=== PATIENT | male | born 1950 | race Caucasian/White ===

== ENCOUNTER 2017-08-11 19:24 | Emergency (ER) | payer OTHER ==
[~2017-08-11] VITALS: Ht 185.4 cm; Wt 115.5 kg
[~2017-08-11 19:24] MED LIST: NIAC500 PO
[2017-08-11 19:29] VITALS: BP 131/68; PULSE 80; RESP 20; TEMP 98.1; O2SAT 95
[2017-08-11] MEDS ORDERED: OSEL75 PO ×2 (20:10→20:20)
[2017-08-11] MEDS ORDERED: BENZ100 PO ×2 (20:10→20:20)
--- NOTE | 2017-08-11 20:11 | PD ---
HPI Chief Complaint: Cold / Flu Symptoms Time Seen by Provider: 20:04 Travel History International Travel<30 days: No Contact w/Intl Traveler<30days: [place] Country Traveled to: [facility] [place] Traveled to known affect area: No History of Present Illness HPI This is a 67-year-old male here with flulike illness times one day. He reports subjective fever, body aches, cough. His is currently being treated for influenza. Symptoms severity is moderate. No aggravating or alleviating factors. PFSH Past Medical History Medical History: Denies Significant Hx Diminished Hearing: No Immunizations Current: Yes Influenza Vaccination: Yes Past Surgical History Surgical History: No Previous Surgery Social History Alcohol Use: No Tobacco Use: No Substance Use: No Allergies-Medications (Allergen,Severity, Reaction): Coded Allergies: Sulfa (Sulfonamide Antibiotics) (Verified Allergy, Severe, HIVES, 08/11/17) Uncoded Allergies: KNA (Allergy, Unknown, 03/11/03) KNDA (Allergy, Unknown, 03/11/03) Reported Meds & Prescriptions Reported Meds & Active Scripts Active Tessalon Perles (Benzonatate) 100 Mg Cap 200 Mg PO TID PRN Tamiflu (Oseltamivir Phosphate) 75 Mg Cap 75 Mg PO BID 5 Days Review of Systems Except as stated in HPI: all other systems reviewed are Neg General / Constitutional: Positive: Fever Eyes: No: Visual changes HENT: Positive: Congestion, No: Headaches Cardiovascular: No: Chest Pain or Discomfort Respiratory: Positive: Cough Gastrointestinal: No: Abdominal Pain Genitourinary: No: Dysuria Musculoskeletal: Positive: Myalgias Skin: No Rash Physical Exam Narrative GENERAL: Alert and well-appearing 67-year-old male SKIN: Warm and dry. No rash HEAD: Normocephalic. EYES: No injection or drainage. Ear/nose/throat; no TM erythema. Clear nasal discharge. Mild pharyngeal erythema without tonsillar hypertrophy or exudate. Uvula is midline. Airway is patent. NECK: Supple. No meningismus CARDIOVASCULAR: Regular rate and rhythm RESPIRATORY: Breath sounds equal bilaterally. No accessory muscle use. GASTROINTESTINAL: Abdomen soft, non-tender, nondistended. MUSCULOSKELETAL: No cyanosis, or edema. BACK: No CVA tenderness. Data Data Last Documented VS Vital Signs Date Time Temp Pulse Resp B/P (MAP) Pulse Ox O2 Delivery O2 Flow Rate FiO2 08/11/17 19:29 98.1 80 20 131/68 (89) 95 Orders Orders Ed Discharge Order (08/11/17 20:16) MDM Medical Decision Making Medical Screen Exam Complete: Yes Emergency Medical Condition: Yes Differential Diagnosis Influenza, bronchitis, pneumonia Narrative Course 67-year-old male here with flulike illness times one day. He is nontoxic appearing. is currently being treated for influenza. Patient is requesting treatment with Tamiflu. Diagnosis Primary Impression: Influenza-like illness Referrals: Primary Care Physician Additional Instructions: Tylenol and ibuprofen for fever control. Stay well-hydrated. Tamiflu as directed Scripts Benzonatate (Tessalon Perles) 100 Mg Cap 200 MG PO TID Y for COUGH, #14 CAP 0 Refills Prov: Cheryl Conde 08/11/17 Oseltamivir (Tamiflu) 75 Mg Cap 75 MG PO BID for Mgmt Viral Infection for 5 Days, #10 CAP 0 Refills Prov: Cheryl Conde 08/11/17 Disposition: 01 DISCHARGE HOME Condition: Stable Cheryl Conde Aug 11, 2017 20:10
== END 2017-08-11 20:28 | disposition home or self-care (01) ==
LOC: MERGE 19:24 → PHEFT 19:24
DX: J11.1 Influenza due to unidentified influenza virus with other respiratory manifestations (principal)
CPT/HCPCS: 99283

== ENCOUNTER 2017-08-14 13:35 | Emergency (ER) | payer OTHER ==
[~2017-08-14] VITALS: Ht 185.4 cm; Wt 113.0 kg
[~2017-08-14 13:35] MED LIST changes: +BENZ100 PO; +OSEL75 PO
[2017-08-14 13:43] VITALS: BP 125/67; PULSE 79; RESP 18; TEMP 98; O2SAT 95
[2017-08-14] MEDS ORDERED: GUAI1LIQ13 PO (14:12)
[2017-08-14] MEDS ORDERED: ALBUAER3 INH (14:12)
--- NOTE | 2017-08-14 14:19 | PD ---
HPI Chief Complaint: Cold / Flu Symptoms Time Seen by Provider: 13:52 Travel History International Travel<30 days: Yes Contact w/Intl Traveler<30days: Yes Name of Country Traveled to: [place] Traveled to known affect area: No History of Present Illness HPI 67-year-old male presents to the ED for evaluation of nonproductive cough 4 days. Endorses wheezing. States that the cough keeps him up at night. He denies fever, chills, sinus congestion, rhinorrhea, ear pain. He states that his been taking Tessalon Perles with no improvement of symptoms. Patient states that he is currently taking Tamiflu after his tested positive. PFSH Past Medical History Medical History: Denies Significant Hx Diminished Hearing: No Immunizations Current: Yes Tetanus Vaccination: > 5 Years Influenza Vaccination: Yes Past Surgical History Surgical History: No Previous Surgery Social History Alcohol Use: No Tobacco Use: No Substance Use: No Allergies-Medications (Allergen,Severity, Reaction): Coded Allergies: Sulfa (Sulfonamide Antibiotics) (Verified Allergy, Severe, HIVES, 08/14/17) Reported Meds & Prescriptions Reported Meds & Active Scripts Active Coditussin AC Liq (Guaifenesin-Codeine Liq) 200-10 Mg/5ML Liqd 5 Ml PO Q6HR PRN Proair Hfa 8.5 GM Inh (Albuterol Sulfate) 90 Mcg/Act Aer 1 Puff INH Q4H PRN 108 mcg/actuation Review of Systems Except as stated in HPI: all other systems reviewed are Neg Physical Exam Narrative GENERAL: Well-nourished, well-developed white male in no acute distress. SKIN: Warm and dry. HEAD: Normocephalic. Atraumatic. EYES: No scleral icterus. No injection or drainage. PERRLA. EOMI. ENT: Pearly lewis tympanic membranes bilaterally. Nasal mucosa is moist. Oropharynx without erythema, edema or exudate. NECK: Supple, trachea midline. No JVD or lymphadenopathy. CARDIOVASCULAR: Regular rate and rhythm without murmurs, gallops, or rubs. RESPIRATORY: Breath sounds clear and equal bilaterally. No accessory muscle use. GASTROINTESTINAL: Abdomen soft, non-tender, nondistended. + Bowel sounds MUSCULOSKELETAL: No cyanosis, or edema. BACK: Nontender without obvious deformity. No CVA tenderness. Data Data Last Documented VS Vital Signs Date Time Temp Pulse Resp B/P (MAP) Pulse Ox O2 Delivery O2 Flow Rate FiO2 08/14/17 13:43 98.0 79 18 125/67 (86) 95 Orders Orders Chest, Single Ap (08/14/17 ) [facility] Medical Decision Making Medical Screen Exam Complete: Yes Emergency Medical Condition: Yes Differential Diagnosis Influenza versus acute cough first bronchitis versus other Narrative Course 67-year-old male presents to the ED for evaluation of nonproductive cough 4 days. Endorses wheezing. States that the cough keeps him up at night. He denies fever, chills, sinus congestion, rhinorrhea, ear pain. He states that his been taking Tessalon Perles with no improvement of symptoms. Patient states that he is currently taking Tamiflu after his tested positive. Patient afebrile on presentation. ENT exam is unremarkable. Chest clear to auscultation bilaterally. Chest x-ray without evidence of pneumonia by my read. This is cough and wheezing in adult, likely secondary to influenza. Patient's prescribed codeine cough syrup and pro-air inhaler when necessary wheezing. Patient's instructed take the medication as prescribed. He is cautioned not to drive while taking the medication. He is instructed to follow up with his primary care provider. He is stable and discharged home. Diagnosis Primary Impression: Cough in adult Additional Impression: Wheezing Referrals: Primary Care Physician Patient Instructions: Acute Cough (ED), General Instructions Additional Instructions: Rest, hydrate. Take cough medication as prescribed. Do not drive while taking codeine cough syrup as it can cause drowsiness. Albuterol inhaler 1 puff every 4 hours as needed for wheezing. Follow-up with your primary care provider. Return to the ED for any urgent or emergent medical condition. Med/Other Pt SpecificInfo: Prescription(s) given Scripts Guaifenesin-Codeine Liq (Coditussin AC Liq) 200-10 Mg/5ML Liqd 5 ML PO Q6HR Y, #120 ML 0 Refills Prov: Franky Motley MD 08/14/17 Albuterol 8.5 GM Inh (Proair Hfa 8.5 GM Inh) 90 Mcg/Act Aer 1 PUFF INH Q4H Y for WHEEZING, #1 INHALER 0 Refills 108 mcg/actuation Prov: Franky Motley MD 08/14/17 Disposition: 01 DISCHARGE HOME Condition: Stable Denisse Richardson Aug 14, 2017 14:19
--- NOTE | 2017-08-14 14:35 | RADRPT ---
EXAM DATE/TIME: 08/14/2017 13:55 [facility] COMPARISON: No previous studies available for comparison. INDICATIONS : Cough. MEDICAL HISTORY : None. SURGICAL HISTORY : None. ENCOUNTER: Initial ACUITY: 2 days PAIN SCORE: 0/10 LOCATION: Bilateral chest FINDINGS: A single view of the chest demonstrates the lungs to be symmetrically aerated without evidence of mas s, infiltrate or effusion. The cardiomediastinal contours are unremarkable. Osseous structures are intact. CONCLUSION: 1. No acute cardiopulmonary disease. Hossein Mishra MD on August 14, 2017 at 14:33 Board Certified Radiologist. This report was verified electronically.
== END 2017-08-14 14:32 | disposition home or self-care (01) ==
LOC: MERGE 13:35 → PHEFT 13:35
DX: R05 Cough (principal); R06.2 Wheezing
CPT/HCPCS: 71045; 99283

== ENCOUNTER 2017-09-26 08:53 | Observation (INO) | payer OTHER ==
[2017-09-26] VITALS (7 sets, daily range): BP systolic 118–145; BP diastolic 71–86; PULSE 66–76; RESP 16–18; TEMP 97.4–98.2; O2SAT 95–99
[~2017-09-26] VITALS: Ht 185.4 cm; Wt 110.0 kg
[~2017-09-26 08:53] MED LIST changes: +ALBUAER3 INH; -BENZ100 PO; +GUAI1LIQ13 PO; -OSEL75 PO
[2017-09-26] MEDS ORDERED: SODIUM CHLORIDE 0.9% FLUSH 10 ML FLUSH IVF PRN (09:15)
--- NOTE | 2017-09-26 09:22 | PD ---
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 He called his primary care physician to get an appointment today and he was immediately referred the emergency department for evaluation of possible cardiac etiology. Patient states he had a stress test more than 5 years ago which was negative. He states is not able to do the walking test secondary to knee pain. He states currently he feels well but when he exerts himself even mildly is having some shortness of breath dizzy spells and feeling like his legs are going to give out. Symptoms are moderate, associated signs symptoms in context as above, duration as above. PFSH Past Medical History Blood Disorders: Yes (FACTOR IX DEFICIENCY) Heart Rhythm Problems: No Cardiac Catheterization: No Cardiovascular Problems: No High Cholesterol: Yes Congestive Heart Failure: No Diabetes: No Diminished Hearing: No Heparin Induced Thrombocytopen: No Immunizations Current: Yes ?: Not Past Surgical History Coronary Artery Bypass Graft: No Social History Alcohol Use: No Tobacco Use: No Substance Use: No Allergies-Medications (Allergen,Severity, Reaction): Coded Allergies: Sulfa (Sulfonamide Antibiotics) (Unverified Allergy, Severe, RASH, 09/26/17 ) Reported Meds & Prescriptions Reported Meds & Active Scripts Active No Active Prescriptions or Reported Medications Review of Systems Except as stated in HPI: all other systems reviewed are Neg Physical Exam Narrative GENERAL: Well-developed well-nourished no obvious distress SKIN: Focused skin assessment warm/dry. HEAD: Atraumatic. Normocephalic. EYES: Pupils equal and round. No scleral icterus. No injection or drainage. ENT: No nasal bleeding or discharge. Mucous membranes pink and moist. NECK: Trachea midline. No JVD. CARDIOVASCULAR: Regular rate and rhythm. No murmur appreciated. 2+ bilateral equal pulses in all 4 extremities. No back tenderness, no chest wall tenderness RESPIRATORY: No accessory muscle use. Clear to auscultation. Breath sounds equal bilaterally. GASTROINTESTINAL: Abdomen soft, non-tender, nondistended. Hepatic and splenic margins not palpable. MUSCULOSKELETAL: No obvious deformities. No clubbing. No cyanosis. No edema. NEUROLOGICAL: Awake and alert. No obvious cranial nerve deficits. Motor grossly within normal limits. Normal speech. PSYCHIATRIC: Appropriate mood and affect; insight and judgment normal. Data Data Last Documented VS Vital Signs Date Time Temp Pulse Resp B/P (MAP) Pulse Ox O2 Delivery O2 Flow Rate FiO2 09/26/17 09:10 75 09/26/17 09:10 17 145/86 (105) 96 Room Air 09/26/17 09:02 97.4 Orders Orders Electrocardiogram (09/26/17 ) Ckmb (Isoenzyme) Profile (09/26/17 09:15) Complete Blood Count With Diff (09/26/17 09:15) Comprehensive Metabolic Panel (09/26/17 09:15) Magnesium (Mg) (09/26/17 09:15) Prothrombin Time / Inr (Pt) (09/26/17 09:15) Act Partial Throm Time (Ptt) (09/26/17 09:15) Troponin I (09/26/17 09:15) Chest, Single Ap (09/26/17 09:15) Ecg Monitoring (09/26/17 09:15) Iv Access Insert/Monitor (09/26/17 09:15) Oximetry (09/26/17 09:15) Oxygen Administration (09/26/17 09:15) Sodium Chloride 0.9% Flush (Ns Flush) (09/26/17 09:15) CKMB (09/26/17 09:20) CKMB% (09/26/17 09:20) Admit Order (Ed Use Only) (09/26/17 ) Labs Laboratory Tests Test 09/26/17 09:20 White Blood Count 4.9 TH/MM3 Red Blood Count 5.06 MIL/MM3 Hemoglobin 14.7 GM/DL Hematocrit 43.1 % Mean Corpuscular Volume 85.2 FL Mean Corpuscular Hemoglobin 28.9 PG Mean Corpuscular Hemoglobin Concent 34.0 % Red Cell Distribution Width 14.5 % Platelet Count 194 TH/MM3 Mean Platelet Volume 7.9 FL Neutrophils (%) (Auto) 53.1 % Lymphocytes (%) (Auto) 35.3 % Monocytes (%) (Auto) 9.3 % Eosinophils (%) (Auto) 1.8 % Basophils (%) (Auto) 0.5 % Neutrophils # (Auto) 2.6 TH/MM3 Lymphocytes # (Auto) 1.7 TH/MM3 Monocytes # (Auto) 0.5 TH/MM3 Eosinophils # (Auto) 0.1 TH/MM3 Basophils # (Auto) 0.0 TH/MM3 CBC Comment DIFF FINAL Differential Comment Prothrombin Time 10.5 SEC Prothromb Time International Ratio 1.0 RATIO Activated Partial Thromboplast Time 40.5 SEC Blood Urea Nitrogen 15 MG/DL Creatinine 1.08 MG/DL Random Glucose 97 MG/DL Total Protein 8.3 GM/DL Albumin 3.8 GM/DL Calcium Level 8.9 MG/DL Magnesium Level 2.1 MG/DL Alkaline Phosphatase 53 U/L Aspartate Amino Transf (AST/SGOT) 48 U/L Alanine Aminotransferase (ALT/SGPT) 31 U/L Total Bilirubin 0.9 MG/DL Sodium Level 137 MEQ/L Potassium Level 4.8 MEQ/L Chloride Level 105 MEQ/L Carbon Dioxide Level 24.1 MEQ/L Anion Gap 8 MEQ/L Estimat Glomerular Filtration Rate 68 ML/MIN Total Creatine Kinase 157 U/L Creatine Kinase MB 2.6 NG/ML Troponin I LESS THAN 0.02 NG/ML MDM Medical Decision Making Medical Screen Exam Complete: Yes Emergency Medical Condition: Yes Differential Diagnosis ACS, NC, dissection unlikely, pneumonia, chest wall pain, strain, sprain, back injury peer Narrative Course Patient room to the emergency department, appears very comfortable in no obvious distress. Dissection was considered but appears to be extremely unlikely. Chest x-ray negative, initial EKG negative, troponin negative. Discussed with him need for further testing and workup and recommended chest pain center observation he is agreeable. At this time and aspirin is withheld given his history of hemophilia, still I think that he would be appropriate for the chest pain center Diagnosis Primary Impression: Chest pain Admitting Information Admitting Physician Requests: Observation Scripts No Active Prescriptions or Reported Meds Condition: Stable Mcihael Trejo MD Sep 26, 2017 09:22
[2017-09-26 09:42] LABS: AUTOMATED NEUTROPHIL # 2.6 TH/MM3 (1.8-7.7); BASOPHIL % 0.5 % (0.0-2.0); EOSINOPHIL # 0.1 TH/MM3 (0-0.4); EOSINOPHIL % 1.8 % (0.0-4.0); HEMATOCRIT 43.1 % (39.0-51.0); HEMOGLOBIN 14.7 GM/DL (13.0-17.0); LYMPH % 35.3 % (9.0-44.0); LYMPHOCYTE # 1.7 TH/MM3 (1.0-4.8); MEAN CELL VOLUME 85.2 FL (80.0-100.0); MEAN CORPUSCULAR HEMOGLOBIN 28.9 PG (27.0-34.0); MEAN PLATELET VOLUME 7.9 FL (7.0-11.0); MONO % 9.3 % (0.0-8.0); MONOCYTE # 0.5 TH/MM3 (0-0.9); NEUT % 53.1 % (16.0-70.0); PLATELET COUNT 194 TH/MM3 (150-450); RED BLOOD COUNT 5.06 MIL/MM3 (4.50-5.90); RED CELL DISTRIBUTION WIDTH 14.5 % (11.6-17.2); WHITE BLOOD COUNT 4.9 TH/MM3 (4.0-11.0)
[2017-09-26 09:48] LABS: PROTHROMBIN TIME - PATIENT 10.5 SEC (9.8-11.6)
[2017-09-26 10:13] LABS: ALBUMIN 3.8 GM/DL (3.4-5.0); ALKALINE PHOSPHATASE 53 U/L (45-117); ALT (GPT) 31 U/L (12-78); BICARBONATE 24.1 MEQ/L (21.0-32.0); BLOOD UREA NITROGEN 15 MG/DL (7-18); CALCIUM 8.9 MG/DL (8.5-10.1); CHLORIDE 105 MEQ/L (98-107); CREATININE 1.08 MG/DL (0.60-1.30); GLOMERULAR FILTRATION RATE 68 ML/MIN (>89); GLUCOSE,RANDOM 97 MG/DL (74-106); MAGNESIUM 2.1 MG/DL (1.5-2.5); SODIUM (NA) 137 MEQ/L (136-145); TOTAL BILIRUBIN ADULT 0.9 MG/DL (0.2-1.0); TOTAL PROTEIN 8.3 GM/DL (6.4-8.2); TROPONIN I LESS THAN 0.02 NG/ML (0.02-0.05)
[2017-09-26 10:16] LABS: AST (GOT) 48 U/L (15-37)
--- NOTE | 2017-09-26 10:18 | RADRPT ---
EXAM DATE/TIME: 09/26/2017 09:27 [facility] COMPARISON: No previous studies available for comparison. INDICATIONS : Chest pain. Patient states he has occasional chest pain and in back. MEDICAL HISTORY : None. SURGICAL HISTORY : None. ENCOUNTER: Initial ACUITY: 1 day PAIN SCORE: 4/10 LOCATION: Bilateral chest FINDINGS: A single view of the chest demonstrates the lungs to be symmetrically aerated without evidence of mas s, infiltrate or effusion. Minimal basal atelectasis. The cardiomediastinal contours are unremarkabl e. Osseous structures are intact. CONCLUSION: 1. Minimal basilar atelectasis. No acute findings. Jay Anna MD on September 26, 2017 at 10:15 Board Certified Radiologist. This report was verified electronically.
[2017-09-26] MEDS ORDERED: ONDANSETRON HCL 4 MG/2 ML VIAL IV PUSH PRN (12:00)
[2017-09-26] MEDS ORDERED: ACETAMINOPHEN/HYDROcodone 325 MG/7.5 MG TAB PO PRN (12:00)
[2017-09-26] MEDS ORDERED: ACETAMINOPHEN 500 MG CPLT PO PRN (12:00)
[2017-09-26] MEDS ORDERED: ALPRAZolam 0.25 MG TAB PO PRN (12:00)
--- NOTE | 2017-09-26 12:49 | HHI.HP ---
[facility] Primary Care Physician Reginald Gibson M.D. Chief Complaint Chest pain History of Present Illness This is a 67-year-old male with history of hemophilia B and arthritis that presents to ED stating he has chest pain and when asked to describe his location he states it is at his back between his shoulder blades. The discomfort has been random. It has been intermittently for 2 weeks. Nothing in particular brings on the discomfort. When he has it will last a few minutes. He has found nothing in particular to worsen or improve the discomfort . Denies recent illnesses. Denies fevers or chills. He thinks he has had a stress test in the past. I reviewed records, he had a nonischemic adenosine thallium stress test December 2011 at this facility with an EF of 49%. His PCP is Dr. Gibson. Review of Systems General: Patient denies fevers, chills, and recent travel. HEENT: Patient denies headache, sore throat, difficulty swallowing. Cardiovascular: Has the chest discomfort as mentioned above. Denies sensation of heart beating rapidly or irregularly. No syncope. Denies diaphoresis. Respiratory: Denies shortness of breath or inspirational chest discomfort. Denies coughing wheezing or hemoptysis. GI: Patient denies nausea, vomiting, diarrhea, abdominal pain, bloody stools. Musculoskeletal: Patient denies joint pain or edema. Denies calf pain or edema. Neurovascular: Patient denies numbness, tingling, weakness in extremities. Denies headache. Endocrine: Denies polyuria and polydipsia. Hematologic: Denies easy bruising. Skin: Denies rash or itching. Past Family Social History Allergies: Coded Allergies: Sulfa (Sulfonamide Antibiotics) (Unverified Allergy, Severe, RASH, 09/26/17 ) Past Medical History Hemophilia B. States he thinks he may have had one transfusion and was greater than 25 years ago. Arthritis in multiple joints and in his back. Denies hypertension, hyperlipidemia, diabetes, and CAD. Past Surgical History Denies prior surgeries. Reported Medications Reported Meds & Active Scripts Active No Active Prescriptions or Reported Medications Active Ordered Medications Current Medications Medications (Trade) Dose Ordered Sig/Joi Route Start Time Stop Time Status Last Admin (NS Flush) 2 ml UNSCH PRN IVF 09/26/17 09:15 (Tylenol) 500 mg Q4H PRN PO 09/26/17 12:00 ([place] 7.5-325 Mg) 1 tab Q4H PRN PO 09/26/17 12:00 (Zofran Inj) 4 mg Q6H PRN IV PUSH 09/26/17 12:00 (Protonix) 40 mg DAILY PO 09/26/17 12:00 (Xanax) 0.25 mg Q8H PRN PO 09/26/17 12:00 Family History Denies family history of CAD. Social History Lifetime non-smoker. Rarely has alcohol. Denies illicit drug use. He is retired. He is . Physical Exam Vital Signs Vital Signs Date Time Temp Pulse Resp B/P (MAP) Pulse Ox O2 Delivery O2 Flow Rate FiO2 09/26/17 09:10 75 09/26/17 09:10 75 17 145/86 (105) 96 Room Air 09/26/17 09:02 97.4 75 16 137/81 (99) 96 Physical Exam GENERAL: This is a well-nourished, well-developed patient, in no apparent distress. Patient speaks in clear complete sentences. Patient is pleasant. HEENT: Head is atraumatic and normocephalic. Neck is supple without lymphadenopathy and trachea is midline. No JVD or carotid bruits. CARDIOVASCULAR: Regular rate and rhythm without murmurs, gallops, or rubs. RESPIRATORY: Clear to auscultation. Breath sounds equal bilaterally. No wheezes , rales, or rhonchi. Chest wall is nontender. No use of accessory muscles. GASTROINTESTINAL: Abdomen is nontender, nondistended. Abdomen soft. No obvious pulsatile mass or bruit. No CVA tenderness. Strong femoral pulses bilaterally. Normal bowel sounds in all quadrants. MUSCULOSKELETAL: Patient is moving upper and lower extremities freely. No calf tenderness or edema, no Homans sign. Strong pulses in upper and lower extremities. NEUROLOGICAL: Patient is alert and oriented. Cranial nerves 2-12 are grossly intact. No focal deficits and speech is clear. SKIN: No rash and turgor is normal. Laboratory Laboratory Tests Test 09/26/17 09:20 White Blood Count 4.9 Red Blood Count 5.06 Hemoglobin 14.7 Hematocrit 43.1 Mean Corpuscular Volume 85.2 Mean Corpuscular Hemoglobin 28.9 Mean Corpuscular Hemoglobin Concent 34.0 Red Cell Distribution Width 14.5 Platelet Count 194 Mean Platelet Volume 7.9 Neutrophils (%) (Auto) 53.1 Lymphocytes (%) (Auto) 35.3 Monocytes (%) (Auto) 9.3 Eosinophils (%) (Auto) 1.8 Basophils (%) (Auto) 0.5 Neutrophils # (Auto) 2.6 Lymphocytes # (Auto) 1.7 Monocytes # (Auto) 0.5 Eosinophils # (Auto) 0.1 Basophils # (Auto) 0.0 CBC Comment DIFF FINAL Differential Comment Prothrombin Time 10.5 Prothromb Time International Ratio 1.0 Activated Partial Thromboplast Time 40.5 Blood Urea Nitrogen 15 Creatinine 1.08 Random Glucose 97 Total Protein 8.3 Albumin 3.8 Calcium Level 8.9 Magnesium Level 2.1 Alkaline Phosphatase 53 Aspartate Amino Transf (AST/SGOT) 48 Alanine Aminotransferase (ALT/SGPT) 31 Total Bilirubin 0.9 Sodium Level 137 Potassium Level 4.8 Chloride Level 105 Carbon Dioxide Level 24.1 Anion Gap 8 Estimat Glomerular Filtration Rate 68 Total Creatine Kinase 157 Creatine Kinase MB 2.6 Troponin I LESS THAN 0.02 Result Diagram: 09/26/1791909/26/17919 Imaging Chest x-ray reveals nothing acute. Course EKG is sinus rhythm with incomplete right bundle branch block without significant ST segment depressions or elevations. Caprini VTE Risk Assessment Caprini VTE Risk Assessment: Mod/High Risk (score >= 2) Caprini Risk Assessment Model Point Value = 1 Point Value = 2 Point Value = 3 Point Value = 5 Age 41-60 Minor surgery BMI > 25 kg/m2 Swollen legs Varicose veins or History of unexplained or recurrent spontaneous Oral contraceptives or hormone replacement Sepsis (< 1 month) Serious lung disease, including pneumonia (< 1 month) Abnormal pulmonary function Acute myocardial infarction Congestive heart failure (< 1 month) History of inflammatory bowel disease Medical patient at bed rest Age 61-74 Arthroscopic surgery Major open surgery (> 45 min) Laparoscopic surgery (> 45 min) Malignancy Confined to bed (> 72 hours) Immobilizing plaster cast Central venous access Age >= 75 History of VTE Family history of VTE Factor V Leiden Prothrombin [id number] Lupus anticoagulant Anticardiolipin antibodies Elevated serum homocysteine Heparin-induced thrombocytopenia Other congenital or acquired thrombophilia Stroke (< 1 month) Elective arthroplasty Hip, pelvis, or leg fracture Acute spinal cord injury (< 1 month) Prophylaxis Regimen Total Risk Factor Score Risk Level Prophylaxis Regimen 0-1 Low Early ambulation 2 Moderate Order ONE of the following: *Sequential Compression Device (SCD) *Heparin 5000 units SQ BID 3-4 Higher Order ONE of the following medications: *Heparin 5000 units SQ TID *Enoxaparin/Lovenox 40 mg SQ daily (WT < 150 kg, CrCl > 30 mL/min) *Enoxaparin/Lovenox 30 mg SQ daily (WT < 150 kg, CrCl > 10-29 mL/min) *Enoxaparin/Lovenox 30 mg SQ BID (WT < 150 kg, CrCl > 30 mL/min) AND/OR *Sequential Compression Device (SCD) 5 or more Highest Order ONE of the following medications: *Heparin 5000 units SQ TID (Preferred with Epidurals) *Enoxaparin/Lovenox 40 mg SQ daily (WT < 150 kg, CrCl > 30 mL/min) *Enoxaparin/Lovenox 30 mg SQ daily (WT < 150 kg, CrCl > 10-29 mL/min) *Enoxaparin/Lovenox 30 mg SQ BID (WT < 150 kg, CrCl > 30 mL/min) AND *Sequential Compression Device (SCD) Assessment and Plan Assessment and Plan * Chest pain: The symptoms appear atypical. He will continue to have serial cardiac enzymes and EKGs for ruling out purposes. He will be seen by Dr. Daniels of cardiology in the chest pain center. States he cannot walk on a treadmill with his chronic arthritic issues. Subsequently, patient will have a Lexiscan in the morning if he rules out. Patient would then likely be discharged home if the stress test is nonischemic with instructions to follow- up with his primary care physician Dr. Reginald Gibson. Return to ED for interval issues. Patient is stable at this time. He is agreeable to this plan. Nikita Esparza Sep 26, 2017 12:49
[2017-09-26 13:45] LABS: TROPONIN I LESS THAN 0.02 NG/ML (0.02-0.05)
[2017-09-26] MEDS: PANTOPRAZOLE SOD 40 MG DELAYED RELEASE TAB PO SCH (13:58)
[2017-09-26 16:50] LABS: TROPONIN I LESS THAN 0.02 NG/ML (0.02-0.05)
--- NOTE | 2017-09-26 17:01 | EKG ---
Date Performed: 09/26/2017 Time Performed: 09:17:35 PTAGE: 67 years EKG: Sinus rhythm INCOMPLETE RIGHT BUNDLE BRANCH BLOCK BORDERLINE ECG Since PREVIOUS TRACING , no significant change noted DOCTOR: Mindi Daniels Interpretating Date/Time 09/26/2017 16:59:54
[2017-09-27] VITALS (12 sets, daily range): BP systolic 90–140; BP diastolic 55–95; PULSE 58–79; RESP 14–20; TEMP 97.6–98.6; O2SAT 95–98
[2017-09-27] MEDS: PANTOPRAZOLE SOD 40 MG DELAYED RELEASE TAB PO SCH (08:52)
[2017-09-27] MEDS ORDERED: REGADENOSON INJ 0.4 MG/5 ML SYR ONE (10:06)
--- NOTE | 2017-09-27 11:18 | RADRPT ---
EXAM DATE/TIME: 09/27/2017 09:59 [place] COMPARISON: MYOCARDIAL PERF PHARM SPECT, GATED W/EF, December 20, 2011, 13:57. INDICATIONS : Pain in middle of shoulder blades radiating to the middle of the chest. Angina. DOSE: 35 mCi Tc99m Myoview at stress. 11 mCi Tc99m Myoview at rest. 0.4 mg Lexiscan STRESS SYMPTOMS: Dyspnea. EJECTION FRACTION: 56% MEDICAL HISTORY : None SURGICAL HISTORY : None. ENCOUNTER: Initial ACUITY: 2 weeks PAIN SCALE: 5/10 LOCATION: chest TECHNIQUE: The patient underwent pharmacologic stress with infusion of prescribed dose. Continuous ECG tracing was monitored during stress. Gated SPECT imaging was performed after stress and conventional SPECT i maging was performed at rest. The examination was performed on a SPECT/CT scanner, both attenuation and non-corrected datasets were reviewed. FINDINGS: DISTRIBUTION: The maximum perfused segment at stress is in the lateral wall. PERFUSION STUDY: Small stress induced perfusion defects are identified in the anteroapical and inferior velasco of the l eft ventricle. There is complete reperfusion of these areas at rest. GATED STUDY: There is intact wall motion and thickening without hypokinetic or dyskinetic segments. CONCLUSION: 1. Reversible stress-induced small perfusion abnormalities in the anteroapical and inferior velasco of left ventricle. 2. No fixed perfusion abnormalities. 3. Well-preserved wall motion and ejection fraction. RISK CATEGORY: Intermediate (1-3% Annual Mortality Rate) Tevin Toth MD on September 27, 2017 at 11:13 Board Certified Radiologist. This report was verified electronically.
--- NOTE | 2017-09-27 16:02 | HHI.PR ---
Subjective Remarks Follow up on patient with chest pain, abnormal MPS, mild factor IX deficiency. Patient seen and examined. Patient admitted yesterday to [facility] with complaints of intermittent chest and back pain between the shoulder blades at rest and with activity for the past several weeks. Patient denies any associated dizziness, lightheadedness, vision changes, palpitations, diaphoresis, dyspnea, numbness, tingling, nausea, vomiting or diaphoresis. Patient denies any fever or chills. Does report that he had the flu in July. No history of tobacco use. Has family history of 2 brothers with atrial fibrillation. Patient has close follow-up with his PCP Dr. Gibson and is seen every 6 months. Objective Vitals Vital Signs Date Time Temp Pulse Resp B/P (MAP) Pulse Ox O2 Delivery O2 Flow Rate FiO2 09/27/17 15:18 76 09/27/17 12:40 67 09/27/17 12:16 97.9 64 19 114/70 (85) 95 09/27/17 08:07 66 09/27/17 07:32 97.6 70 18 122/77 (92) 95 09/27/17 04:37 60 09/27/17 04:33 98.6 67 14 140/65 (90) 98 09/27/17 00:39 97.8 62 14 105/56 (72) 96 09/27/17 00:35 58 09/26/17 20:39 98.2 74 16 135/71 (92) 98 09/26/17 20:10 69 09/26/17 16:12 66 09/26/17 16:00 97.7 70 18 129/85 (100) 96 Result Diagram: 09/26/1720 09/26/17 0920 Imaging Last Impressions Myocardial Perfusion Scan Nuc Med 09/27/17 0000 Signed Impressions: Service Date/Time: Wednesday, September 27, 2017 09:59 - CONCLUSION: 1. Reversible stress-induced small perfusion abnormalities in the anteroapical and inferior velasco of left ventricle. 2. No fixed perfusion abnormalities. 3. Well- preserved wall motion and ejection fraction. RISK CATEGORY: Intermediate (1-3%% Annual Mortality Rate) Tevin Toth MD Chest X-Ray 09/26/17 0915 Signed Impressions: Service Date/Time: Tuesday, September 26, 2017 09:27 - CONCLUSION: 1. Minimal basilar atelectasis. No acute findings. Jay Anna MD Objective Remarks GENERAL: Well-nourished, well-developed male patient in NAD. Awake and alert. SKIN: Warm and dry. No rash. HEAD: Normocephalic. Atraumatic. EYES: EOMI. No scleral icterus. No injection or drainage. ENT: No nasal bleeding or discharge. Mucous membranes pink and moist. NECK: Supple. Trachea midline. CARDIOVASCULAR: Regular rate and rhythm. S1, S2 noted. No murmur appreciated. RESPIRATORY: Nonlabored. Clear to auscultation. Breath sounds equal bilaterally. GASTROINTESTINAL: Abdomen soft, non-tender, nondistended. Normoactive bowel sounds x4. MUSCULOSKELETAL: No obvious deformities. Extremities without clubbing, cyanosis , or edema. NEUROLOGICAL: Awake and alert. No obvious cranial nerve deficits. Motor grossly within normal limits. 5/5 muscle strength in bilateral upper and lower extremities. Normal speech. PSYCHIATRIC: Appropriate mood and affect; insight and judgment normal. Medications and IVs Current Medications Medications (Trade) Dose Ordered Sig/Joi Route Start Time Stop Time Status Last Admin (NS Flush) 2 ml UNSCH PRN IVF 09/26/17 09:15 09/27/17 08:52 (Tylenol) 500 mg Q4H PRN PO 09/26/17 12:00 ([place] 7.5-325 Mg) 1 tab Q4H PRN PO 09/26/17 12:00 (Zofran Inj) 4 mg Q6H PRN IV PUSH 09/26/17 12:00 (Protonix) 40 mg DAILY PO 09/26/17 12:00 09/27/17 08:52 (Xanax) 0.25 mg Q8H PRN PO 09/26/17 12:00 A/P Assessment and Plan 67yo male with PMHX significant for mild factor IX deficiency admitted with c/o chest pain: Chest pain/Abnormal stress test -MPS showing reversible stress-induced small perfusion abnormalities in the anteroapical and inferior velasco of left ventricle -Consult Cardiology, appreciate assistance -NPO after MN -continuous cardiac monitoring -obtain fasting lipid profile Mild Factor IX deficiency -Consult hematology to assist if patient is candidate for aspirin therapy for his CAD, appreciate assistance -no active bleeding noted DVT prophylaxis -avoid chemoprophylaxis given hx of Factor IX deficiency -Bilateral SCD/TJ hose Discharge Planning Pending further workup and cardiology clearance Daria Mejia Sep 27, 2017 16:02
[2017-09-27] MEDS ORDERED: MORPHINE SULFATE 4 MG/ML INJ IV PUSH PRN (16:30)
[2017-09-27] MEDS ORDERED: MAGNESIUM HYDROXIDE SUSP 30 ML CUP PO PRN (16:30)
[2017-09-27] MEDS ORDERED: NITROGLYCERIN 0.4 MG SL 25 TABS/BTL SL PRN (16:30)
[2017-09-27] MEDS ORDERED: SENNOSIDES 8.6 MG TAB PO PRN (16:30)
[2017-09-27] MEDS ORDERED: BISACODYL 10 MG SUPP RECTAL PRN (16:30)
--- NOTE | 2017-09-27 16:41 | EKG ---
Date Performed: 09/26/2017 Time Performed: 15:36:21 PTAGE: 67 years EKG: Sinus rhythm POSSIBLE RIGHT VENTRICULAR CONDUCTION DELAY BORDERLINE ECG PREVIOUS TRACING : 09/26/2017 09.17 Since previous tracing, no significant change noted DOCTOR: Ciro Leung Interpretating Date/Time 09/27/2017 16:39:16
--- NOTE | 2017-09-27 16:43 | EKG ---
Date Performed: 09/26/2017 Time Performed: 12:52:26 PTAGE: 67 years EKG: Sinus rhythm MODERATE INTRAVENTRICULAR CONDUCTION DELAY BORDERLINE ECG INTERPRETATION BASED ON A DEFAULT AGE OF 2 0 YEARS NO PREVIOUS TRACING DOCTOR: Ciro Leung Interpretating Date/Time 09/27/2017 16:40:08
--- NOTE | 2017-09-27 16:44 | TR ---
Date Performed: 09/27/2017 Time Performed: 10:19:41 DOCTOR: Ciro Leung DRUG LIST: CLINICAL HISTORY: CHEST PAIN REASON FOR TEST: CHEST PAIN REASON FOR ENDING: OBSERVATION: CONCLUSION: Lexiscan stress test was performed under standard four minute protocol. [place]ion[place] e was injected one minute prior to ending the test. No electrocardiographic abormalities were present to suggest ischemia. Nuclear imaging and interpretation are pending. COMMENTS:
[2017-09-27] MEDS ORDERED: ATORVASTATIN 40 MG TAB PO ONE (16:45)
[2017-09-27] MEDS: DOCUSATE SODIUM 50 MG/SENNA 8.6 MG TAB PO SCH (20:01)
[2017-09-27] MEDS ORDERED: METOPROLOL TARTRATE 25 MG TAB PO SCH (21:00)
--- NOTE | 2017-09-27 21:35 | MB ---
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 HISTORY OF PRESENT ILLNESS: Mr. Henson is a 67-year-old man with a history of diabetes, of hemophilia B. He is well known to my partner, Dr. Remberto Rodriguez who evaluated him extensively. His baseline factor IX activity level from 04/26/2010 was 11%. His PTT is always mildly prolonged. Mr. Henson denies any spontaneous joint bleed. He bleeds during trauma. He has a target joint of the right ankle during an injury. It has never been normal. He presented with chest pain. He describes it starting in his back between his shoulder blades. The discomfort has been random. It has been intermittent for 2 weeks. He had a stress test in 2011. His EF was 49%. He had a repeat stress test, again by Ciro Leung that showed no electrocardiographic abnormality to suggest ischemia. Mr. Henson was seen by Dr. Leung, who recommended medical management. Mr. Henson has a grandfather who had hemophilia B. His mother is a carrier. He has 2 sons, no daughters. He denies any spontaneous bleeding. He tolerates an aspirin p.r.n. for headaches. He has had a tooth extraction with prolonged bleeding in his gums. He has responded to Amicar in the past. He has received factor IX clotting factor which I suspect is BeneFix for a skin surgery/Mohs surgery in 2009. He responded well without any bleeding event. The rest of his review of systems is negative. PAST MEDICAL HISTORY: 1. Hemophilia B mild, hemophiliac arthropathy right ankle. 2. Atypical chest pain. PAST SURGICAL HISTORY: 1. Tooth extraction. 2. Mohs surgery. FAMILY HISTORY: No family history of coronary artery disease. Mother was a carrier. Grandfather had hemophilia B. SOCIAL HISTORY: He is a nonsmoker. Denies any illicit drug use. He is retired, , lives with his . He drinks alcohol rarely. PHYSICAL EXAMINATION: VITAL SIGNS: Temperature 97.9, heart rate 68, respiratory rate 18, blood pressure 116/80, saturation 95%. GENERAL: Mr. Henson is a well-developed, well-nourished, robust appearing man, in no acute distress. HEENT: His pupils are round, reactive to light and accommodation. Oropharynx is clear. NECK: Supple. LUNGS: Clear. CARDIOVASCULAR: Reveals normal rate and rhythm. ABDOMEN: Benign. EXTREMITIES: Lower extremities with no edema. There are hemophiliac arthropathy changes in his right ankle. Good pulses. NEUROLOGIC: Nonfocal. ALLERGIES: SULFA. CURRENT MEDICATIONS: Include Lipitor, Laura-Colace, Lopressor, Protonix p.r.n. LABORATORY DATA: PTT prolonged 40 seconds. Comprehensive metabolic panel shows a creatinine 1.08, AST mildly elevated at 48. Troponin I is negative. Total protein is slightly elevated at 8.3. CBC is normal. ASSESSMENT AND PLAN: Mr. Henson is a 67-year-old man with hemophilia B mild. He does not have spontaneous bleeding. His baseline factor IX activity level is 11%. We discussed his evaluation by cardiology and decision to proceed with medical management. We discussed should he need a procedure, we can cover him with a factor IX clotting factor, BeneFix which is available in the hospital. It appears that might not be necessary during this hospitalization. He is doing better. We discussed the general plan if cardiac intervention is necessary. We would need to correct him to a near normal factor IX activity level with a recombinant extended half life factors. In this matter cardiology can proceed with their procedure. He is agreeable with the medical management at present. He is doing better. Defer to cardiology regarding optimal management of his heart. In the meantime, we discussed following up in clinic to review the plethora of extended half life factors for factor IX. We discussed in general terms the availability of Idelvion, Alprolix and Rebinyn. These are all recombinant extended half life products. They could play a role in correcting his factor IX deficiency while he takes antiplatelet therapy. This is an option should it be necessary. Mr. Henson's and his 's questions were answered to her satisfaction. Information on factor IX is provided. MD FREDDY Galvan/rt , 08:57 PM , 09:34 PM ABELARDO
--- NOTE | 2017-09-28 | MB ---
cc: Donis Mac DO DATE: 09/27/2017 REASON FOR CONSULTATION: Abnormal stress test. HISTORY OF PRESENT ILLNESS: Robles Henson is a pleasant 67-year-old male who presented to [facility] Room due to back pain. He states that he gets the back pain between his shoulder blades and this can come on at any time. It does not seem to come on associated with any certain activity or go away with any certain activity. He has had the pain wake him up in the middle of the night. He states that it is an aching in his back between his shoulder blades and rates it at a 2-3/10. He states that it can go on for minutes to hours. He discussed this with his primary care physician and they sent him over immediately to the emergency room to rule out a cardiac cause. He was admitted to the chest pain unit and underwent stress testing which showed small perfusion abnormality in the anterior apical and inferior velasco of the left ventricle. I was asked to see him for consideration for further management of his abnormal stress test. In seeing him, he is currently hemodynamically stable. He states that he recently was doing work outside with his arms up in the air, cleaning off the side of his house and windows. He discussed this with his primary care physician who sent him over immediately to be evaluated for a possible cardiac cause. He was admitted to the chest pain center and ruled out for myocardial infarction and underwent stress testing which showed a small anterior apical and inferior ischemia. I was asked to see him for further recommendations. In seeing him, he is currently hemodynamically stable without chest pain or shortness of breath. In discussing it with him, he adamantly states that he had no chest pain and that he has pain in the middle of his back, which is not exacerbated by activity. PAST MEDICAL HISTORY: 1. Hemophilia B. 2. Arthritis. PAST SURGICAL HISTORY: 1. Had multiple teeth removed with 1 leading to extensive bleeding for which he needed cauterization. 2. Mohs surgery. ALLERGIES: SULFA. MEDICATIONS: Denies. FAMILY HISTORY: Denies premature coronary artery disease or sudden cardiac within the family. SOCIAL HISTORY: The patient denies smoking. He rarely uses alcohol. He denies drug abuse. REVIEW OF SYSTEMS: Fourteen systems were reviewed including osteopathic. Pertinent positives and negatives above, otherwise negative. PHYSICAL EXAMINATION: VITAL SIGNS: Temperature 97.8 Heart rate 79, blood pressure 139/95, respirations 20, pulse oximetry 98% on room air. GENERAL: The patient appears well in no acute distress. Alert, awake and oriented x 3. HEENT: Extraocular muscles intact. Mucous membranes moist. NECK: Supple. No JVD at 45 degrees. No carotid bruits heard bilaterally. Carotid upstroke is brisk in nature. HEART: Regular rate and rhythm. Positive first and second heart sounds with no noted murmurs, gallops or rubs. LUNGS: Clear to auscultation bilaterally. No wheezes, rales or rhonchi. ABDOMEN: Soft, nontender, nondistended. No organomegaly noted. EXTREMITIES: Show no clubbing, cyanosis or edema. Femoral and distal pulses are intact bilaterally. NEUROLOGIC: No focal deficits. SKIN: Warm, dry and intact. OSTEOPATHIC: No kyphoscoliosis, lordosis or paraspinal tender points. LABORATORY DATA: Hemoglobin 14.7, hematocrit 43.1, platelets 194. Potassium 4.8, BUN 15, creatinine 1.08. Troponin negative x 3. Electrocardiogram (09/26/2017 at 1536) sinus rhythm, incomplete right bundle branch block. IMPRESSIONS: 1. Back pain, appearing to be more towards musculoskeletal, although possible atypical chest pain. 2. Abnormal stress test with small area of ischemia in the anterior apical and inferior region. 3. Hemophilia B. RECOMMENDATIONS: 1. Mr. Henson appeared to present with back pain that seems to come on randomly and not associated with activity. Overall, this does not appear to be anginal in nature. 2. He underwent stress testing and was found to have small areas of ischemia in the anterior apical and inferior regions. This is ranked as an intermediate risk stress test, but by guidelines, this would be considered a low risk stress test, as there is no moderate areas of ischemia or dilatation of the left ventricle. 3. I had a long discussion with him and his about possible options. Overall, I feel that since he has a low risk stress test with small areas of ischemia at most, that he should be placed on antianginal medications as he is not on optimal medical therapy. I recommended starting him on Norvasc, which can be 5 mg daily. He should also be placed on aspirin 81 mg daily. 4. I did discuss with him following up with hematology as if he ever does need coronary intervention we will need their guidance on chava-procedure, post-procedure and antiplatelet recommendations. 5. He would prefer to continue medical management at this time and if further chest pain or concern he can follow up with me in the office, where it will allow us to discuss further with hematology about how to protect him the best for undergoing a possible cardiac catheterization intervention. 6. I did let him know that stress tests are not 100% and on top of this if he has further anginal concerns that this should be further evaluated with consideration of cardiac catheterization. 7. Overall, him and his are in agreement that he should be started on medical therapy and further evaluated in the future if necessary. Thank you for allowing me to see Robles Henson. If there are any questions, please do not hesitate to call. Donis Mac DO VGP/rt , 11:28 PM , 12:00 AM
[2017-09-28 00:24] VITALS: PULSE 59
[2017-09-28 02:58] VITALS: BP 91/50; PULSE 54; RESP 17; TEMP 97.8; O2SAT 94
[2017-09-28 07:22] LABS: PROTHROMBIN TIME - PATIENT 10.6 SEC (9.8-11.6)
[2017-09-28 07:41] LABS: CHOLESTEROL 156 MG/DL (120-200); TRIGLYCERIDES 162 MG/DL (42-150)
[2017-09-28 07:48] VITALS: BP 117/71; PULSE 61; RESP 18; TEMP 97.8; O2SAT 95
[2017-09-28 07:52] LABS: CHOLESTEROL/ HDL RATIO 5.37 RATIO; LDL CHOLESTEROL 95 MG/DL (0-99)
--- NOTE | 2017-09-28 08:08 | HHI.PR ---
Subjective Remarks Follow up on patient with chest pain, abnormal MPS, mild factor IX deficiency. Patient seen and examined. Patient states he feels well. He denies any recurrence of chest pain. Denies any shortness of breath. Denies any fever or chills. Denies nausea, vomiting or abdominal pain. Patient is afebrile. Vital signs stable. Objective Vitals Vital Signs Date Time Temp Pulse Resp B/P (MAP) Pulse Ox O2 Delivery O2 Flow Rate FiO2 09/28/17 07:48 97.8 61 18 117/71 (86) 95 09/28/17 02:58 97.8 54 17 91/50 (64) 94 09/28/17 00:24 59 09/27/17 23:04 97.8 65 17 90/55 (67) 95 09/27/17 19:25 97.9 68 18 116/80 (92) 95 09/27/17 15:56 97.8 79 20 135/95 (108) 98 09/27/17 15:18 76 09/27/17 12:40 67 09/27/17 12:16 97.9 64 19 114/70 (85) 95 09/27/17 08:07 66 Result Diagram: 09/26/17 0920 09/26/17 0920 Imaging Last Impressions Myocardial Perfusion Scan Nuc Med 09/27/17 0000 Signed Impressions: Service Date/Time: Wednesday, September 27, 2017 09:59 - CONCLUSION: 1. Reversible stress-induced small perfusion abnormalities in the anteroapical and inferior velasco of left ventricle. 2. No fixed perfusion abnormalities. 3. Well- preserved wall motion and ejection fraction. RISK CATEGORY: Intermediate (1-3%% Annual Mortality Rate) Tevin Toth MD Chest X-Ray 09/26/1715 Signed Impressions: Service Date/Time: Tuesday, September 26, 2017 09:27 - CONCLUSION: 1. Minimal basilar atelectasis. No acute findings. Jay Anna MD Objective Remarks GENERAL: Well-nourished, well-developed male patient in NAD. Awake and alert. Sitting up in bed. SKIN: Warm and dry. HEAD: Normocephalic. Atraumatic. EYES: EOMI. No scleral icterus. No injection or drainage. ENT: No nasal bleeding or discharge. Mucous membranes pink and moist. NECK: Trachea midline. CARDIOVASCULAR: Regular rate and rhythm. S1, S2 noted. No murmur appreciated. RESPIRATORY: Nonlabored. Clear to auscultation. Breath sounds equal bilaterally. GASTROINTESTINAL: Abdomen soft, non-tender, nondistended. Normoactive bowel sounds x4. MUSCULOSKELETAL: No obvious deformities. Extremities without clubbing, cyanosis , or edema. NEUROLOGICAL: Awake and alert. No obvious cranial nerve deficits. Motor grossly within normal limits. 5/5 muscle strength in bilateral upper and lower extremities. Normal speech. PSYCHIATRIC: Appropriate mood and affect; insight and judgment normal. Medications and IVs Current Medications Medications (Trade) Dose Ordered Sig/Joi Route Start Time Stop Time Status Last Admin (NS Flush) 2 ml UNSCH PRN IVF 09/26/17 09:15 09/27/17 08:52 (Tylenol) 500 mg Q4H PRN PO 09/26/17 12:00 ([place] 7.5-325 Mg) 1 tab Q4H PRN PO 09/26/17 12:00 (Zofran Inj) 4 mg Q6H PRN IV PUSH 09/26/17 12:00 (Protonix) 40 mg DAILY PO 09/26/17 12:00 09/27/17 08:52 (Xanax) 0.25 mg Q8H PRN PO 09/26/17 12:00 (Laura-Colace) 1 tab BID PO 09/27/17 21:00 (Milk Of Magnesia Liq) 30 ml Q12H PRN PO 09/27/17 16:30 (Senokot) 17.2 mg Q12H PRN PO 09/27/17 16:30 (Dulcolax Supp) 10 mg DAILY PRN RECTAL 09/27/17 16:30 (Nitrostat Sl) 0.4 mg Q5M PRN SL 09/27/17 16:30 (Morphine Inj) 4 mg Q3H PRN IV PUSH 09/27/17 16:30 (Lipitor) 40 mg DAILY PO 09/28/17 09:00 A/P Assessment and Plan 67yo male with PMHX significant for mild factor IX deficiency admitted with c/o chest pain: Chest pain/Abnormal stress test -MPS showing reversible stress-induced small perfusion abnormalities in the anteroapical and inferior velasco of left ventricle -Cardiology following, appreciate assistance. Per Dr. Mac, low risk MPS. Patient to maximize on medical management at this time and will follow-up as an outpatient. Cleared for discharge from cardiology standpoint. -continuous cardiac monitoring -start on Norvasc 5mg daily Dyslipidemia -Tg 162, chol 156, LDL 95, HDL 29 -LFTs acceptable. Initiate statin therapy. Patient will need to have his lipid profile and LFTs rechecked as an outpatient. Mild Factor IX deficiency -Hematology following, appreciate assistance. Discussed with Dr. Cote possibility of patient initiating aspirin therapy in this moderately hemophilic patient, she suggested trial of aspirin once every 3-4 days or once a week. Discussed with patient beginning aspirin therapy 81 mg once a day. Discussed extensively with patient increased risk of bleeding and to discontinue use if he has any evidence of bleeding. Patient follow-up with hematology as outpatient. -no active bleeding noted DVT prophylaxis -avoid chemoprophylaxis given hx of Factor IX deficiency -Bilateral SCD/TJ hose Discharge patient to home Condition on discharge: Improved Heart healthy Diet as tolerated Ad Johana activity Rx written: Norvasc 5mg daily, Lipitor 40mg daily Follow-up with primary care physician, cardiology and hemato otologylogy Daria Mejia Sep 28, 2017 08:08
[2017-09-28] MEDS ORDERED: ATORVASTATIN 40 MG TAB PO SCH (09:00)
[2017-09-28] MEDS: DOCUSATE SODIUM 50 MG/SENNA 8.6 MG TAB PO SCH (09:00)
[2017-09-28] MEDS ORDERED: amLODIPine BESYLATE 5 MG TAB PO SCH (09:00)
[2017-09-28] MEDS: PANTOPRAZOLE SOD 40 MG DELAYED RELEASE TAB PO SCH (09:46)
[2017-09-28] MEDS ORDERED: AMLO5 PO (09:50)
[2017-09-28] MEDS ORDERED: ATOR40TA16 PO (09:50)
== END 2017-09-28 10:03 | disposition home or self-care (01) ==
LOC: NEPC 08:53 → NEDA 10:59 → NEPHCDU 13:39
PROVIDERS: ADMIT Internal Medicine; ATTEND Internal Medicine
DX: R07.89 Other chest pain (principal); I25.10 Atherosclerotic heart disease of native coronary artery without angina pectoris; E78.00 Pure hypercholesterolemia, unspecified; E11.9 Type 2 diabetes mellitus without complications; D67 Hereditary factor IX deficiency; M36.2 Hemophilic arthropathy; R94.39 Abnormal result of other cardiovascular function study; I45.10 Unspecified right bundle-branch block; M47.9 Spondylosis, unspecified; M19.90 Unspecified osteoarthritis, unspecified site
CPT/HCPCS: 71045; 78452; 80053; 80061; 82550; 82552; 83036; 83735; 84443; 84484; 85025; 85610; 85730; 93005; 93017; 99285; A9502; G0378; J2785

== ENCOUNTER 2017-10-16 19:13 | Emergency (ER) | payer OTHER ==
[~2017-10-16] VITALS: Ht 185.4 cm; Wt 109.0 kg
[~2017-10-16 19:13] MED LIST changes: -ALBUAER3 INH; +AMLO5 PO; +ATOR40TA16 PO; -GUAI1LIQ13 PO; -NIAC500 PO
[2017-10-16 19:29] VITALS: BP 138/74; PULSE 82; RESP 18; TEMP 97.5; O2SAT 95
--- NOTE | 2017-10-16 20:07 | PD ---
HPI Chief Complaint: Musculoskeletal Complaint Time Seen by Provider: 19:37 Travel History International Travel<30 days: No Contact w/Intl Traveler<30days: No Traveled to known affect area: No History of Present Illness HPI 67-year-old male presents emergency department for evaluation of right shoulder pain that started 2 days ago. Patient states that he was in the garden and may have overworked himself that resulted in the shoulder pain. Says his shoulder pain is aching and worse with movement. Denies any numbness or tingling of the extremity. Denies significant weakness. Says he has pain directly over the bony process of the shoulder. He has a history of shoulder pain but has not had pain in some time. Patient denies fever, chills, chest pain, shortness of breath. Patient also mentions that he was out in the local kelly (in [place]) a couple times in the last week and may have acquired some ticks. Patient states that he was able to shave off 1 of the ticks on his abdomen however, feels that he may have a tick on the left hip region. Patient is concerned that his shoulder pain may be related to the tick bite. Says he has been bit several times this year in [place] without any issues. 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) High Cholesterol: No Congestive Heart Failure: No Diabetes: No Diminished Hearing: No Heparin Induced Thrombocytopen: No Immunizations Current: Yes Past Surgical History Coronary Artery Bypass Graft: No Social History Alcohol Use: No Tobacco Use: No Substance Use: No Allergies-Medications (Allergen,Severity, Reaction): Coded Allergies: Sulfa (Sulfonamide Antibiotics) (Unverified Allergy, Severe, RASH, 09/26/17 ) Reported Meds & Prescriptions Reported Meds & Active Scripts Active Robaxin (Methocarbamol) 500 Mg Tab 500 Mg PO TID 5 Days Norvasc (Amlodipine Besylate) 5 Mg Tab 5 Mg PO DAILY Atorvastatin (Atorvastatin Calcium) 40 Mg Tab 40 Mg PO DAILY Review of Systems Except as stated in HPI: all other systems reviewed are Neg Physical Exam Narrative GENERAL: Well-nourished, well-developed patient. SKIN: Focused skin assessment warm/dry. Left ASIS region. With a very small 1 mm tick, tick portions completely removed and cleansed with iodine and alcohol prep. Left anterior abdomen-patient states this is where he removed a tick by cutting the body off-site was opened and a small amount of exudate was expressed, site was cleansed of any further tick debris HEAD: Normocephalic. EYES: No scleral icterus. No injection or drainage. NECK: Supple, trachea midline. No JVD or lymphadenopathy. CARDIOVASCULAR: Regular rate and rhythm without murmurs, gallops, or rubs. RESPIRATORY: Breath sounds equal bilaterally. No accessory muscle use. GASTROINTESTINAL: Abdomen soft, non-tender, nondistended. MUSCULOSKELETAL: No cyanosis, or edema. Right shoulder-appears to be a sag in the shoulder joint. Mild TTP to acromion process. neurovascularly intact BACK: Nontender without obvious deformity. No CVA tenderness. Data Data Last Documented VS Vital Signs Date Time Temp Pulse Resp B/P (MAP) Pulse Ox O2 Delivery O2 Flow Rate FiO2 10/16/17 19:29 97.5 82 18 138/74 (95) 95 Orders Orders Shoulder, Complete (>2vws) (10/16/17 ) Ed Discharge Order (10/16/17 20:54) MDM Medical Decision Making Medical Screen Exam Complete: Yes Emergency Medical Condition: Yes Differential Diagnosis Right shoulder strain, shoulder fracture, rotator cuff injury, tick bite Narrative Course 67-year-old male presents emergency department for evaluation of right shoulder pain that started 2 days ago. Says that he was out gardening couple days ago may have exacerbated existing shoulder injury. Patient denies any fever, chills, chest pain, shortness of breath. Denies any back pain. Vital signs are stable. Shoulder x-ray ordered as patient is complaining of bony prominence pain/ tenderness to palpation. In addition, there is a slight sag sign in the shoulder which is concerning for slight dislocation. In addition, there is a very small tick in the left hip region that was removed , cleansed and explored of any debris. There is a lesion in the left anterior abdomen region measuring approximately 2- 3 mm that was explored and debrided. Very small amount of exudate expressed. Site was cleansed. No evidence of infectious process in the deep tissue requiring antibiotics. Last Impressions Shoulder X-Ray 10/16/17 0000 Signed Impressions: Service Date/Time: Monday, October 16, 2017 20:07 - CONCLUSION: Mild hypertrophic change at the right acromioclavicular joint. Jose Galloway MD Patient has hydrocodone at home for pain. He does request something stronger than hydrocodone however, advised that this is the strongest medication he can be given in the emergency department. I will prescribe him Robaxin as patient has been holding his shoulder in a fixed flexed position and likely is developing muscle spasms related to this position. Advised that he should follow-up with his primary care physician for further treatment and evaluation. Follow-up with orthopedic physician for treatment. Return for worsening or persistent symptoms. Diagnosis Primary Impression: Tick bite with subsequent removal of tick Additional Impression: Shoulder strain Qualified Codes: S46.911A - Strain of unspecified muscle, fascia and tendon at shoulder and upper arm level, right arm, initial encounter Referrals: Primary Care Physician Additional Instructions: Use ice or heat for symptom relief. Elevate the joint above the heart to reduce swelling. You may use compression with Ajit wrap or similar to reduce swelling. If symptoms persist or worsen, return to the emergency department. Follow up with your primary care physician within 2 days. Monitor for signs of infection where the tick was removed. This may include increased redness and swelling. Scripts Methocarbamol (Robaxin) 500 Mg Tab 500 MG PO TID for Muscle Spasm for 5 Days, TAB 0 Refills Prov: Hope Churchill DO 10/16/17 Disposition: 01 DISCHARGE HOME Condition: Stable Adrianne Amaro Oct 16, 2017 20:07
--- NOTE | 2017-10-16 20:39 | RADRPT ---
EXAM DATE/TIME: 10/16/2017 20:07 [facility] COMPARISON: No previous studies available for comparison. INDICATIONS : Right shoulder pain, no known trauma. MEDICAL HISTORY : None. SURGICAL HISTORY : None. ENCOUNTER: Initial ACUITY: 1 week PAIN SCORE: 8/10 LOCATION: Right shoulder. FINDINGS: No fracture is seen. The glenohumeral and acromioclavicular joints are normally aligned. There is mil d hypertrophic change at the acromioclavicular joint. CONCLUSION: Mild hypertrophic change at the right acromioclavicular joint. Jose Galloway MD on October 16, 2017 at 20:36 Board Certified Radiologist. This report was verified electronically.
[2017-10-16] MEDS ORDERED: ROBA500T PO (20:53)
== END 2017-10-16 21:18 | disposition home or self-care (01) ==
LOC: PHEFT 19:13
DX: S30.861A Insect bite (nonvenomous) of abdominal wall, initial encounter (principal); W57.XXXA Bitten or stung by nonvenomous insect and other nonvenomous arthropods, initial encounter; S46.911A Strain of unspecified muscle, fascia and tendon at shoulder and upper arm level, right arm, initial encounter; X50.9XXA Other and unspecified overexertion or strenuous movements or postures, initial encounter
CPT/HCPCS: 10120; 73030

== ENCOUNTER 2017-10-20 20:26 | Observation (INO) | payer OTHER ==
[~2017-10-20] VITALS: Ht 185.4 cm; Wt 134.7 kg
[~2017-10-20 20:26] MED LIST changes: +ROBA500T PO
[2017-10-20 20:44] VITALS: BP 133/75; PULSE 88; RESP 18; TEMP 97.7; O2SAT 95
[2017-10-20] MEDS ORDERED: HYDR-3583 PO (21:08)
[2017-10-20] MEDS ORDERED: METH8TAB3 PO (21:08)
[2017-10-20] MEDS ORDERED: SODIUM CHLORIDE 0.9% FLUSH 10 ML FLUSH IVF PRN (21:30)
--- NOTE | 2017-10-20 21:56 | PD ---
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 Patient presents the emergency room with multiple complaints. Patient reports that he initially came to the emergency room as he has had right-sided shoulder pain. Patient was recently seen in the emergency room for this and had x-rays which showed mild hypertrophic change at the right acromial clavicular joint. Patient reports that he is currently on hydrocodone for his shoulder pain, reports that his shoulder pain is not getting any better. Patient is scheduled for an MRI on Monday, patient reports increased pain to his right shoulder. Patient denies any recent injuries to his right shoulder. patient reports that this afternoon, he went to get up from a chair and ended up twisting his right ankle.Denies any trauma to head/neck. 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 Patient called his trackman to instruct him to come to the emergency room for evaluation as he will need factor IX clotting factors to be administered intravenously. While evaluating patient for his ankle injury, patient began to complain of chest pain. Patient reports that he had nonspecific pain to his chest substernally, reports no shortness of breath or diaphoresis with this. Reports that the pain only lasted for a few minutes and has currently resolved. Patient thinks that this chest pain could be due to his anxiety but is not sure. He was recently admitted to the hospital for chest pain workup, he had an abnormal stress test and was seen by cardiology, it was decided to have medical management for patient with consideration for cardiac catheterization in the near future. 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) High Cholesterol: No Congestive Heart Failure: No Diabetes: No Diminished Hearing: No Heparin Induced Thrombocytopen: No Immunizations Current: Yes Influenza Vaccination: No Past Surgical History Surgical History: No Previous Surgery Coronary Artery Bypass Graft: No Social History Alcohol Use: No Tobacco Use: No Substance Use: No Allergies-Medications (Allergen,Severity, Reaction): Coded Allergies: Sulfa (Sulfonamide Antibiotics) (Verified Allergy, Severe, RASH, 10/20/17) Reported Meds & Prescriptions Reported Meds & Active Scripts Active Robaxin (Methocarbamol) 500 Mg Tab 500 Mg PO TID 5 Days Norvasc (Amlodipine Besylate) 5 Mg Tab 5 Mg PO DAILY Atorvastatin (Atorvastatin Calcium) 40 Mg Tab 40 Mg PO DAILY Reported Methylprednisolone 8 Mg Tab 4 Mg PO DAILY Hydrocodone-Acetaminophen 10-325 mg Tab 1 Tab PO Q4H PRN Review of Systems General / Constitutional: No: Fever Eyes: No: Visual changes HENT: No: Headaches Cardiovascular: Positive: Chest Pain or Discomfort Respiratory: No: Shortness of Breath Gastrointestinal: No: Abdominal Pain Genitourinary: No: Dysuria Musculoskeletal: Positive: Pain (right shoulder and right ankle pain) Skin: No Rash Neurologic: No: Weakness Psychiatric: No: Depression Endocrine: No: Polydipsia Hematologic/Lymphatic: No: Easy Bruising Physical Exam Narrative GENERAL: moderate distress SKIN: Focused skin assessment warm/dry. HEAD: Atraumatic. Normocephalic. EYES: Pupils equal and round. No scleral icterus. No injection or drainage. ENT: No nasal bleeding or discharge. Mucous membranes pink and moist. NECK: Trachea midline. No JVD. CARDIOVASCULAR: Regular rate and rhythm. No murmur appreciated. RESPIRATORY: No accessory muscle use. Clear to auscultation. Breath sounds equal bilaterally. GASTROINTESTINAL: Abdomen soft, non-tender, nondistended. Hepatic and splenic margins not palpable. MUSCULOSKELETAL: No obvious deformities. No clubbing. No cyanosis. pain with rom to right ankle, there is bruising and edema to right ankle NEUROLOGICAL: Awake and alert. No obvious cranial nerve deficits. Motor grossly within normal limits. Normal speech. PSYCHIATRIC: Appropriate mood and affect; insight and judgment normal. Data Data Last Documented VS Vital Signs Date Time Temp Pulse Resp B/P (MAP) Pulse Ox O2 Delivery O2 Flow Rate FiO2 10/20/17 22:10 16 97 Room Air 10/20/17 20:44 97.7 88 133/75 (94) Orders Orders Ankle, Complete ([id number]) (10/20/17 ) Electrocardiogram (10/20/17 21:28) B-Type Natriuretic Peptide (10/20/17:28) Ckmb (Isoenzyme) Profile (10/20/17 21:28) Complete Blood Count With Diff (10/20/17:) Comprehensive Metabolic Panel (10/20/17:) Magnesium (Mg) (10/20/17:28) Prothrombin Time / Inr (Pt) (10/20/17:) Act Partial Throm Time (Ptt) (10/20/17:) Troponin I (10/20/17:) Lipase (10/20/17:) Chest, Single Ap (10/20/17:) Ecg Monitoring (10/20/17:) Iv Access Insert/Monitor (10/20/17:) Oximetry (10/20/17:) Sodium Chloride 0.9% Flush (Ns Flush) (10/20/17 21:30) Factor Ix (Recombinant) Inj (Benefix Inj (10/20/17 23:55) Morphine Inj (Morphine Inj) (10/20/17 23:30) Admit Order (Ed Use Only) (10/20/17 23:25) Labs Laboratory Tests Test 10/20/17 22:30 White Blood Count 12.3 TH/MM3 Red Blood Count 4.92 MIL/MM3 Hemoglobin 13.4 GM/DL Hematocrit 42.2 % Mean Corpuscular Volume 85.8 FL Mean Corpuscular Hemoglobin 27.2 PG Mean Corpuscular Hemoglobin Concent 31.7 % Red Cell Distribution Width 13.8 % Platelet Count 237 TH/MM3 Mean Platelet Volume 8.0 FL Neutrophils (%) (Auto) 80.3 % Lymphocytes (%) (Auto) 10.7 % Monocytes (%) (Auto) 7.8 % Eosinophils (%) (Auto) 0.2 % Basophils (%) (Auto) 1.0 % Neutrophils # (Auto) 9.9 TH/MM3 Lymphocytes # (Auto) 1.3 TH/MM3 Monocytes # (Auto) 1.0 TH/MM3 Eosinophils # (Auto) 0.0 TH/MM3 Basophils # (Auto) 0.1 TH/MM3 CBC Comment DIFF FINAL Differential Comment Prothrombin Time 10.2 SEC Prothromb Time International Ratio 1.0 RATIO Activated Partial Thromboplast Time 42.8 SEC Blood Urea Nitrogen 22 MG/DL Creatinine 1.00 MG/DL Random Glucose 139 MG/DL Total Protein 8.5 GM/DL Albumin 3.4 GM/DL Calcium Level 8.8 MG/DL Magnesium Level 2.2 MG/DL Aspartate Amino Transf (AST/SGOT) 13 U/L Alanine Aminotransferase (ALT/SGPT) 21 U/L Total Bilirubin 0.2 MG/DL Sodium Level 136 MEQ/L Potassium Level 3.9 MEQ/L Chloride Level 101 MEQ/L Carbon Dioxide Level 29.1 MEQ/L Anion Gap 6 MEQ/L Estimat Glomerular Filtration Rate 74 ML/MIN Total Creatine Kinase 75 U/L Troponin I LESS THAN 0.02 NG/ML B-Type Natriuretic Peptide 27 PG/ML Lipase 47 U/L MDM Medical Decision Making Medical Screen Exam Complete: Yes Emergency Medical Condition: Yes Medical Record Reviewed: Yes Interpretation(s) EKG at 2135: NSR at 83bpm, qt/qtc: 354/394, no acute st or t wave changes Differential Diagnosis acs, arrhythmia, hemarthrosis, anxiety reaction Narrative Course Patient is 67-year-old male who presents the emergency room with multiple complaints. During the course of the patients emergency department visit, the patients history, examination, and differential diagnosis were reviewed with the patient. The patient was placed on a gum machine operator with oximetry and frequent blood pressure monitoring. The patient had an IV access obtained and blood work sent for analysis. As per patient's swollen right ankle, a call was made to to discuss case as patient may need administration of Factor IX clotting factor. After an extensive discussion about patient's clinical symptoms of his chest pain which seems to be atypical, it was decided to go ahead and administer the Factor IX clotting factor. I did talk to patient about his symptoms in detail and did discuss that if he is truly having chest pain concerning for ACS, then administration of this drug could be dangerous. Patient reports that chest pain didn't last for very long and he couldn't really describe it and thinks that it could be from anxiety but would like the clotting factor to be administrated. Risks and benefits of administration of the medication was discussed with patient in detail. The patient was initially provided benefax The patients laboratory studies were reviewed and remarkable for Laboratory Tests Test 10/20/17 22:30 White Blood Count 12.3 TH/MM3 (4.0-11.0) Red Blood Count 4.92 MIL/MM3 (4.50-5.90) Hemoglobin 13.4 GM/DL (13.0-17.0) Hematocrit 42.2 % (39.0-51.0) Mean Corpuscular Volume 85.8 FL (80.0-100.0) Mean Corpuscular Hemoglobin 27.2 PG (27.0-34.0) Mean Corpuscular Hemoglobin Concent 31.7 % (32.0-36.0) Red Cell Distribution Width 13.8 % (11.6-17.2) Platelet Count 237 TH/MM3 (150-450) Mean Platelet Volume 8.0 FL (7.0-11.0) Neutrophils (%) (Auto) 80.3 % (16.0-70.0) Lymphocytes (%) (Auto) 10.7 % (9.0-44.0) Monocytes (%) (Auto) 7.8 % (0.0-8.0) Eosinophils (%) (Auto) 0.2 % (0.0-4.0) Basophils (%) (Auto) 1.0 % (0.0-2.0) Neutrophils # (Auto) 9.9 TH/MM3 (1.8-7.7) Lymphocytes # (Auto) 1.3 TH/MM3 (1.0-4.8) Monocytes # (Auto) 1.0 TH/MM3 (0-0.9) Eosinophils # (Auto) 0.0 TH/MM3 (0-0.4) Basophils # (Auto) 0.1 TH/MM3 (0-0.2) CBC Comment DIFF FINAL Differential Comment Prothrombin Time 10.2 SEC (9.8-11.6) Prothromb Time International Ratio 1.0 RATIO Activated Partial Thromboplast Time 42.8 SEC (24.3-30.1) Blood Urea Nitrogen 22 MG/DL (7-18) Creatinine 1.00 MG/DL (0.60-1.30) Random Glucose 139 MG/DL (74-106) Total Protein 8.5 GM/DL (6.4-8.2) Albumin 3.4 GM/DL (3.4-5.0) Calcium Level 8.8 MG/DL (8.5-10.1) Magnesium Level 2.2 MG/DL (1.5-2.5) Aspartate Amino Transf (AST/SGOT) 13 U/L (15-37) Alanine Aminotransferase (ALT/SGPT) 21 U/L (12-78) Total Bilirubin 0.2 MG/DL (0.2-1.0) Sodium Level 136 MEQ/L (136-145) Potassium Level 3.9 MEQ/L (3.5-5.1) Chloride Level 101 MEQ/L (98-107) Carbon Dioxide Level 29.1 MEQ/L (21.0-32.0) Anion Gap 6 MEQ/L (5-15) Estimat Glomerular Filtration Rate 74 ML/MIN (>89) Total Creatine Kinase 75 U/L (39-308) Troponin I LESS THAN 0.02 NG/ML B-Type Natriuretic Peptide 27 PG/ML (0-100) Lipase 47 U/L (73-393) Radiology studies were reviewed and remarkable for Last Impressions Chest X-Ray 10/20/172127 Signed Impressions: Service Date/Time: Friday, October 20, 2017 21:39 - CONCLUSION: No acute disease. Jose Galloway MD Ankle X-Ray 10/20/17 0000 Signed Impressions: Service Date/Time: Friday, October 20, 2017 21:39 - CONCLUSION: Chronic bony changes described above. Acute bone abnormality is not seen. Jose Galloway MD Patient currently chest pain-free at this time. Patient waiting for the Benefix to be delivered and administered from the [facility]. Plan to obs for chest pain Diagnosis Primary Impression: Chest pain Qualified Codes: R07.9 - Chest pain, unspecified Additional Impression: Hemarthrosis of ankle, right Admitting Information Admitting Physician Requests: Observation Amarilis Roth DO Oct 20, 2017 21:56
[2017-10-20 22:10] VITALS: RESP 16; O2SAT 97
--- NOTE | 2017-10-20 22:29 | HHI.PR ---
Addendum to Inpatient Note Addendum Reason: Additional Documentation Additional Information Case discussed with Dr. Roth. Pt with h/o Hemophilia B. R ankle injury earlier today. Pt with complaints of pain and swelling. Recombinant Factor IX ordered at a dose of 2000 units x 1 as initial dose. Pt to be admitted to observation to [facility]. Will re-evaluate and if needed will infuse an additional 1000 units recombinant factor XI later tonight. The factor is being transferred from [facility] in [facility] to the [facility]. This may take a few hours. Also, I would advise icing the ankle and compression. Rafal Neal MD Oct 20, 2017 22:29
[2017-10-20 22:37] LABS: AUTOMATED NEUTROPHIL # 9.9 TH/MM3 (1.8-7.7); BASOPHIL # 0.1 TH/MM3 (0-0.2); EOSINOPHIL % 0.2 % (0.0-4.0); HEMATOCRIT 42.2 % (39.0-51.0); HEMOGLOBIN 13.4 GM/DL (13.0-17.0); LYMPH % 10.7 % (9.0-44.0); LYMPHOCYTE # 1.3 TH/MM3 (1.0-4.8); MEAN CELL VOLUME 85.8 FL (80.0-100.0); MEAN CORPUSCULAR HEMOGLOBIN 27.2 PG (27.0-34.0); MEAN CORPUSCULAR HGB CONC 31.7 % (32.0-36.0); MONO % 7.8 % (0.0-8.0); NEUT % 80.3 % (16.0-70.0); PLATELET COUNT 237 TH/MM3 (150-450); RED BLOOD COUNT 4.92 MIL/MM3 (4.50-5.90); RED CELL DISTRIBUTION WIDTH 13.8 % (11.6-17.2); WHITE BLOOD COUNT 12.3 TH/MM3 (4.0-11.0)
--- NOTE | 2017-10-20 22:42 | RADRPT ---
EXAM DATE/TIME: 10/20/2017 21:39 [facility] COMPARISON: No previous studies available for comparison. INDICATIONS : Right ankle pain post twisting. MEDICAL HISTORY : None. SURGICAL HISTORY : None. ENCOUNTER: Initial ACUITY: 1 day PAIN SCORE: 6/10 LOCATION: Right ankle FINDINGS: No acute fracture is seen. The ankle is normally aligned. There is some remodeling at the distal tibi a and talar dome consistent with chronic degenerative and hypertrophic change. There is mild soft tis catie swelling at the ankle. There is some degenerative change between the lateral and medial malleoli regions and the talus. CONCLUSION: Chronic bony changes described above. Acute bone abnormality is not seen. Jose Galloway MD on October 20, 2017 at 22:38 Board Certified Radiologist. This report was verified electronically.
--- NOTE | 2017-10-20 22:42 | RADRPT ---
EXAM DATE/TIME: 10/20/2017 21:39 [facility] COMPARISON: CHEST SINGLE AP, September 26, 2017, 9:27. INDICATIONS : Chest pain. MEDICAL HISTORY : None. SURGICAL HISTORY : None. ENCOUNTER: Initial ACUITY: 1 day PAIN SCORE: 8/10 LOCATION: Bilateral chest FINDINGS: A single view of the chest demonstrates the lungs to be symmetrically aerated without evidence of mas s, infiltrate or effusion. The cardiomediastinal contours are unremarkable. Osseous structures are intact. CONCLUSION: No acute disease. Jose Galloway MD on October 20, 2017 at 22:40 Board Certified Radiologist. This report was verified electronically.
[2017-10-20 22:45] VITALS: BP 126/82; PULSE 82; RESP 16; O2SAT 95
[2017-10-20 22:46] LABS: CHLORIDE 101 MEQ/L (98-107); SODIUM (NA) 136 MEQ/L (136-145)
[2017-10-20 22:50] LABS: ALBUMIN 3.4 GM/DL (3.4-5.0); BICARBONATE 29.1 MEQ/L (21.0-32.0); BLOOD UREA NITROGEN 22 MG/DL (7-18); CALCIUM 8.8 MG/DL (8.5-10.1); GLUCOSE,RANDOM 139 MG/DL (74-106); MAGNESIUM 2.2 MG/DL (1.5-2.5)
[2017-10-20 22:52] LABS: PROTHROMBIN TIME - PATIENT 10.2 SEC (9.8-11.6)
[2017-10-20 22:53] LABS: ALT (GPT) 21 U/L (12-78); AST (GOT) 13 U/L (15-37); GLOMERULAR FILTRATION RATE 74 ML/MIN (>89)
[2017-10-20 22:55] LABS: TOTAL BILIRUBIN ADULT 0.2 MG/DL (0.2-1.0); TOTAL PROTEIN 8.5 GM/DL (6.4-8.2)
[2017-10-20 22:56] LABS: ALKALINE PHOSPHATASE 58 U/L (45-117)
[2017-10-20 22:59] LABS: TROPONIN I LESS THAN 0.02 NG/ML (0.02-0.05)
[2017-10-20] MEDS ORDERED: MORPHINE SULFATE 2 MG/ML SYRINGE IV PUSH ONE (23:30)
[2017-10-20] MEDS ORDERED: SODIUM CHLORIDE 0.9% FLUSH 10 ML FLUSH IV FLUSH PRN (23:45)
[2017-10-20] MEDS ORDERED: SENNOSIDES 8.6 MG TAB PO PRN (23:45)
[2017-10-20] MEDS ORDERED: LACTULOSE SYRUP 20 GM/30 ML CUP PO PRN (23:45)
[2017-10-20] MEDS ORDERED: BISACODYL 10 MG SUPP RECTAL PRN (23:45)
[2017-10-20] MEDS ORDERED: ONDANSETRON HCL 4 MG/2 ML VIAL IVP PRN (23:45)
[2017-10-20] MEDS ORDERED: ACETAMINOPHEN/HYDROcodone 325 MG/5 MG TAB PO PRN (23:45)
[2017-10-20] MEDS ORDERED: ACETAMINOPHEN 325 MG TAB PO PRN (23:45)
[2017-10-20] MEDS ORDERED: MAGNESIUM HYDROXIDE SUSP 30 ML CUP PO PRN (23:45)
[2017-10-20] MEDS ORDERED: FACTOR IX RECOMBINANT 2,000 UNIT VIAL IV ONE (23:55)
[2017-10-21] MEDS: MORPHINE SULFATE 2 MG/ML SYRINGE IV PUSH PRN ×3 (00:23→07:59)
[2017-10-21 00:55] VITALS: BP 128/80; PULSE 90; RESP 16; O2SAT 94
[2017-10-21 03:00] VITALS: BP 138/75; PULSE 91; RESP 20; TEMP 97.1; O2SAT 94
[2017-10-21] MEDS ORDERED: MORPHINE SULFATE 2 MG/ML SYRINGE IV PUSH ONE (06:00)
[2017-10-21 08:00] VITALS: BP 115/67; PULSE 85; RESP 16; TEMP 98.9; O2SAT 93
[2017-10-21] MEDS: DOCUSATE SODIUM 50 MG/SENNA 8.6 MG TAB PO SCH ×2 (08:00→20:16)
[2017-10-21] MEDS: SODIUM CHLORIDE 0.9% FLUSH 10 ML FLUSH IV FLUSH SCH ×2 (08:01→20:16)
[2017-10-21 10:32] LABS: AUTOMATED NEUTROPHIL # 7.5 TH/MM3 (1.8-7.7); BASOPHIL # 0.4 TH/MM3 (0-0.2); BASOPHIL % 3.5 % (0.0-2.0); EOSINOPHIL % 0.2 % (0.0-4.0); HEMOGLOBIN 13.3 GM/DL (13.0-17.0); LYMPHOCYTE # 1.3 TH/MM3 (1.0-4.8); MEAN CELL VOLUME 85.9 FL (80.0-100.0); MEAN CORPUSCULAR HEMOGLOBIN 27.9 PG (27.0-34.0); MEAN CORPUSCULAR HGB CONC 32.4 % (32.0-36.0); MEAN PLATELET VOLUME 8.3 FL (7.0-11.0); MONO % 11.3 % (0.0-8.0); MONOCYTE # 1.2 TH/MM3 (0-0.9); PLATELET COUNT 208 TH/MM3 (150-450); RED BLOOD COUNT 4.78 MIL/MM3 (4.50-5.90); RED CELL DISTRIBUTION WIDTH 13.9 % (11.6-17.2); WHITE BLOOD COUNT 10.4 TH/MM3 (4.0-11.0)
[2017-10-21 10:46] LABS: CHLORIDE 102 MEQ/L (98-107); SODIUM (NA) 137 MEQ/L (136-145)
[2017-10-21 10:49] LABS: CALCIUM 8.8 MG/DL (8.5-10.1)
[2017-10-21 10:50] LABS: ALBUMIN 3.2 GM/DL (3.4-5.0); BICARBONATE 27.5 MEQ/L (21.0-32.0); BLOOD UREA NITROGEN 21 MG/DL (7-18); GLUCOSE,RANDOM 131 MG/DL (74-106)
[2017-10-21 10:53] LABS: ALT (GPT) 20 U/L (12-78); AST (GOT) 11 U/L (15-37); CREATININE 0.94 MG/DL (0.60-1.30); GLOMERULAR FILTRATION RATE 80 ML/MIN (>89)
[2017-10-21 10:54] LABS: TOTAL BILIRUBIN ADULT 0.5 MG/DL (0.2-1.0); TOTAL PROTEIN 8.2 GM/DL (6.4-8.2)
[2017-10-21 10:56] LABS: ALKALINE PHOSPHATASE 54 U/L (45-117)
[2017-10-21 10:58] LABS: TROPONIN I LESS THAN 0.02 NG/ML (0.02-0.05)
[2017-10-21] MEDS: HYDROmorphone HCL PF 2 MG/ML VIAL IVS PRN ×2 (11:48→20:16)
[2017-10-21 12:00] VITALS: BP 126/73; PULSE 84; RESP 16; TEMP 97.9; O2SAT 94
--- NOTE | 2017-10-21 12:04 | HHI.HP ---
[facility] Reginald Gibson M.D. 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 He injured his right ankle and had significant pain and swelling so he came to the emergency room. He was given factor IX in the emergency room and recommended for further evaluation. He has 10 out of 10 pain and swelling in the ankle. He has not had any recent trauma or recent issues with his hemophilia. He had been seen Dr. Rodriguez in the past but since Dr. Rodriguez retired he had not been in follow with new bariatric nurse. Most recently he was in the hospital in August for atypical chest pain and found to have a abnormal stress test with the recommendations for medical management per cardiology in consultation. Since that time he has been on Norvasc and atorvastatin. The patient also has had right shoulder discomfort for which she has been in follow-up with his orthopedist who recommended oral steroids in lieu of injections as well as hydrocodone for pain management. Here the pain in his ankle is quite severe and improved minimally with morphine but still quite painful. He is admitted for further evaluation and treatment Review of Systems Constitutional: DENIES: Diaphoretic episodes, Fatigue, Fever, Weight gain, Weight loss, Chills, Dizziness, Change in appetite, Night Sweats Endocrine: DENIES: Heat/cold intolerance, Polydipsia, Polyuria, Polyphagia Eyes: DENIES: Blurred vision, Diplopia, Eye inflammation, Eye pain, Vision loss , Photosensitivity, Double Vision Ears, nose, mouth, throat: DENIES: Tinnitus, Hearing loss, Vertigo, Nasal discharge, Oral lesions, Throat pain, Hoarseness, Ear Pain, Running Nose, Epistaxis, Sinus Pain, Toothache, Odynophagia Respiratory: DENIES: Apneas, Cough, Snoring, Wheezing, Hemoptysis, Sputum production, Shortness of breath Cardiovascular: DENIES: Chest pain, Palpitations, Syncope, Dyspnea on Exertion , PND, Lower Extremity Edema, Orthopnea, Claudication Gastrointestinal: DENIES: Abdominal pain, Black stools, Bloody stools, Constipation, Diarrhea, Nausea, Vomiting, Difficulty Swallowing, Anorexia Genitourinary: DENIES: Sexual dysfunction, Urinary frequency, Urinary incontinence, Urgency, Hematuria, Dysuria, Nocturia, Penile Discharge, Testicular Pain, Testicular Swelling Musculoskeletal: COMPLAINS OF: Joint pain, Joint Swelling, DENIES: Muscle aches , Stiffness, Back pain, Neck pain Integumentary: DENIES: Abnormal pigmentation, Nail changes, Pruritus, Rash Hematologic/lymphatic: DENIES: Bruising, Lymphadenopathy Immunologic/allergic: DENIES: Eczema, Urticaria Neurologic: DENIES: Abnormal gait, Headache, Localized weakness, Paresthesias, Seizures, Speech Problems, Tremor, Poor Balance Psychiatric: DENIES: Anxiety, Confusion, Mood changes, Depression, Hallucinations, Agitation, Suicidal Ideation, Homicidal Ideation, Delusions Except as stated in HPI: all other systems reviewed are Neg Past Family Social History Past Medical History Hemophilia B Right shoulder pain, hyperlipidemia and probable coronary artery disease Past Surgical History Denies Reported Medications Reviewed in the EMR Allergies: Coded Allergies: Sulfa (Sulfonamide Antibiotics) (Verified Allergy, Severe, RASH, 10/20/17) Active Ordered Medications Reviewed in the EMR Family History Cousin with hemophilia, father of colon cancer in his 60s, mother of old age 90 Social History No tobacco or alcohol dependency, lives with his Physical Exam Vital Signs Vital Signs Date Time Temp Pulse Resp B/P (MAP) Pulse Ox O2 Delivery O2 Flow Rate FiO2 10/21/17 08:00 98.9 85 16 115/67 (83) 93 10/21/17 03:00 97.1 91 20 138/75 (96) 94 10/21/17 00:55 90 16 128/80 (96) 94 Room Air 10/21/17 00:47 16 10/21/17 00:09 16 10/20/17 22:45 82 16 126/82 (97) 95 Room Air 10/20/17 22:10 16 97 Room Air 10/20/17 20:44 97.7 88 18 133/75 (94) 95 Physical Exam GENERAL: This is a well-nourished, well-developed patient, in no apparent distress. SKIN: No rashes, ecchymoses or lesions. Cool and dry. HEAD: Atraumatic. Normocephalic. No temporal or scalp tenderness. EYES: Pupils equal round and reactive. Extraocular motions intact. No scleral icterus. No injection or drainage. ENT: Nose without bleeding, purulent drainage or septal hematoma. Throat without erythema, tonsillar hypertrophy or exudate. Uvula midline. Airway patent. NECK: Trachea midline. No JVD or lymphadenopathy. Supple, nontender, no meningeal signs. CARDIOVASCULAR: Regular rate and rhythm without murmurs, gallops, or rubs. RESPIRATORY: Clear to auscultation. Breath sounds equal bilaterally. No wheezes , rales, or rhonchi. GASTROINTESTINAL: Abdomen soft, non-tender, nondistended. No hepato-splenomegaly , or palpable masses. No guarding. MUSCULOSKELETAL: Right ankle with significant swelling and pain, other 3 extremities without clubbing, cyanosis, or edema. No joint tenderness, effusion , or edema noted. No calf tenderness. Negative Homans sign bilaterally. NEUROLOGICAL: Awake and alert. Cranial nerves II through XII intact. Motor and sensory grossly within normal limits. Five out of 5 muscle strength in all muscle groups. Normal speech. Laboratory Laboratory Tests Test 10/20/17 22:30 10/21/17 05:45 10/21/17 09:57 White Blood Count 12.3 10.4 Red Blood Count 4.92 4.78 Hemoglobin 13.4 13.3 Hematocrit 42.2 41.0 Mean Corpuscular Volume 85.8 85.9 Mean Corpuscular Hemoglobin 27.2 27.9 Mean Corpuscular Hemoglobin Concent 31.7 32.4 Red Cell Distribution Width 13.8 13.9 Platelet Count 237 208 Mean Platelet Volume 8.0 8.3 Neutrophils (%) (Auto) 80.3 72.0 Lymphocytes (%) (Auto) 10.7 13.0 Monocytes (%) (Auto) 7.8 11.3 Eosinophils (%) (Auto) 0.2 0.2 Basophils (%) (Auto) 1.0 3.5 Neutrophils # (Auto) 9.9 7.5 Lymphocytes # (Auto) 1.3 1.3 Monocytes # (Auto) 1.0 1.2 Eosinophils # (Auto) 0.0 0.0 Basophils # (Auto) 0.1 0.4 CBC Comment DIFF FINAL DIFF FINAL Differential Comment Prothrombin Time 10.2 Prothromb Time International Ratio 1.0 Activated Partial Thromboplast Time 42.8 Blood Urea Nitrogen 22 21 Creatinine 1.00 0.94 Random Glucose 139 131 Total Protein 8.5 8.2 Albumin 3.4 3.2 Calcium Level 8.8 8.8 Magnesium Level 2.2 Aspartate Amino Transf (AST/SGOT) 13 11 Alanine Aminotransferase (ALT/SGPT) 21 20 Total Bilirubin 0.2 0.5 Sodium Level 136 137 Potassium Level 3.9 3.9 Chloride Level 101 102 Carbon Dioxide Level 29.1 27.5 Anion Gap 6 8 Estimat Glomerular Filtration Rate 74 80 Total Creatine Kinase 75 Troponin I LESS THAN 0.02 LESS THAN 0.02 LESS THAN 0.02 B-Type Natriuretic Peptide 27 Lipase 47 Alkaline Phosphatase 54 Result Diagram: 10/21/17 0957 10/21/17956 Imaging Last 24 hours Impressions Chest X-Ray 10/20/172127 Signed Impressions: Service Date/Time: Friday, October 20, 2017 21:39 - CONCLUSION: No acute disease. Jose Galloway MD Capelizabeth VTE Risk Assessment Caprini VTE Risk Assessment: Mod/High Risk (score >= 2) VTE Pharm Contraindication: High risk for bleeding Caprini Risk Assessment Model Point Value = 1 Point Value = 2 Point Value = 3 Point Value = 5 Age 41-60 Minor surgery BMI > 25 kg/m2 Swollen legs Varicose veins or History of unexplained or recurrent spontaneous Oral contraceptives or hormone replacement Sepsis (< 1 month) Serious lung disease, including pneumonia (< 1 month) Abnormal pulmonary function Acute myocardial infarction Congestive heart failure (< 1 month) History of inflammatory bowel disease Medical patient at bed rest Age 61-74 Arthroscopic surgery Major open surgery (> 45 min) Laparoscopic surgery (> 45 min) Malignancy Confined to bed (> 72 hours) Immobilizing plaster cast Central venous access Age >= 75 History of VTE Family history of VTE Factor V Leiden Prothrombin [id number] Lupus anticoagulant Anticardiolipin antibodies Elevated serum homocysteine Heparin-induced thrombocytopenia Other congenital or acquired thrombophilia Stroke (< 1 month) Elective arthroplasty Hip, pelvis, or leg fracture Acute spinal cord injury (< 1 month) Prophylaxis Regimen Total Risk Factor Score Risk Level Prophylaxis Regimen 0-1 Low Early ambulation 2 Moderate Order ONE of the following: *Sequential Compression Device (SCD) *Heparin 5000 units SQ BID 3-4 Higher Order ONE of the following medications: *Heparin 5000 units SQ TID *Enoxaparin/Lovenox 40 mg SQ daily (WT < 150 kg, CrCl > 30 mL/min) *Enoxaparin/Lovenox 30 mg SQ daily (WT < 150 kg, CrCl > 10-29 mL/min) *Enoxaparin/Lovenox 30 mg SQ BID (WT < 150 kg, CrCl > 30 mL/min) AND/OR *Sequential Compression Device (SCD) 5 or more Highest Order ONE of the following medications: *Heparin 5000 units SQ TID (Preferred with Epidurals) *Enoxaparin/Lovenox 40 mg SQ daily (WT < 150 kg, CrCl > 30 mL/min) *Enoxaparin/Lovenox 30 mg SQ daily (WT < 150 kg, CrCl > 10-29 mL/min) *Enoxaparin/Lovenox 30 mg SQ BID (WT < 150 kg, CrCl > 30 mL/min) AND *Sequential Compression Device (SCD) Assessment and Plan Problem List: (1) 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 Plan: Status post factor IX infusion Follow-up with hematology this afternoon (2) Chest pain ICD Code: R07.9 - Chest pain, unspecified Status: Acute Plan: Recent stress test in August, follow-up outpatient with cardiology Likely due to anxiety Cardiac enzymes are negative No further complaints Continue with atorvastatin and Norvasc (3) Swollen ankles ICD Code: M25.471 - Effusion, right ankle; M25.472 - Effusion, left ankle Plan: Rule out hemarthrosis Status post factor IX Follow-up MRI rule out internal derangement In the meantime keep elevated, ice, pain control with IV Dilaudid (patient with high tolerance due to chronic narcotic use for right shoulder pain) Discussed Condition With Patient, spouse, Jerry OWUSU Problem Qualifiers (1) Chest pain: Qualified Codes: R07.9 - Chest pain, unspecified Betty Silveira MD Oct 21, 2017 12:04
[2017-10-21 16:00] VITALS: BP 127/69; PULSE 91; RESP 18; TEMP 98.9; O2SAT 94
--- NOTE | 2017-10-21 16:24 | RADRPT ---
EXAM DATE/TIME: 10/21/2017 13:54 [place] COMPARISON: No previous studies available for comparison. INDICATIONS : Trauma. Right ankle pain and swelling. Unable to bear weight. MEDICAL HISTORY : None. SURGICAL HISTORY : None. ENCOUNTER: Initial ACUITY: 2 day PAIN SCORE: 8/10 LOCATION: Right ankle. TECHNIQUE: Multiplanar, multisequence MRI examination was performed without contrast. 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 There is also advanced arthropathy of t he subtalar joint especially laterally with osteochondral defect at the inferior talus laterally and a small effusion in the subtalar joint as well. There is subchondral cystic changes in both the talus and calcaneus. There appears to be prior injury to the talar fibular ligaments. No tendon rupture is identified. Distal Achilles is intact. There is a tenosynovitis around the flexo r tendons at the medial posterior foot. No definite fracture. CONCLUSION: 1. No definite fracture identified. 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 2. Probable remote injury to the talofibular ligaments. 3. Positive ankle joint effusion. 4. Tenosynovitis surrounds the flexor tendons at the medial posterior foot. Jay Anna MD on October 21, 2017 at 16:16 Board Certified Radiologist. This report was verified electronically.
--- NOTE | 2017-10-21 16:59 | EKG ---
Date Performed: 10/20/2017 Time Performed: 21:35:54 PTAGE: 67 years EKG: Sinus rhythm INCOMPLETE RIGHT BUNDLE BRANCH BLOCK BORDERLINE ECG Since the PREVIOUS TRACING , no significant change noted PREVIOUS TRACIN09/26/2017 15.36 DOCTOR: Jerrod Larry Interpretating Date/Time 10/21/2017 16:55:22
[2017-10-21 20:00] VITALS: BP 169/81; PULSE 99; RESP 18; TEMP 98.4; O2SAT 93
[2017-10-22] VITALS: BP 139/77; PULSE 93; RESP 18; TEMP 98.1; O2SAT 93
[2017-10-22] MEDS: HYDROmorphone HCL PF 2 MG/ML VIAL IVS PRN (03:56)
[2017-10-22 08:00] VITALS: BP 119/73; PULSE 86; RESP 18; TEMP 98; O2SAT 93
[2017-10-22] MEDS: SODIUM CHLORIDE 0.9% FLUSH 10 ML FLUSH IV FLUSH SCH (08:30)
[2017-10-22] MEDS: DOCUSATE SODIUM 50 MG/SENNA 8.6 MG TAB PO SCH (08:33)
--- NOTE | 2017-10-22 08:33 | HHI.DCPOC ---
Discharge Care Plan Diagnosis: (1) Ankle sprain Goals to Promote Your Health * To prevent worsening of your condition and complications * To maintain your health at the optimal level Directions to Meet Your Goals Take your medications as prescribed Follow your dietary instruction Follow activity as directed Keep your appointments as scheduled Take your immunizations and boosters as scheduled If your symptoms worsen call your PCP, if no PCP go to Urgent Care Center or Emergency Room Smoking is Dangerous to Your Health. Avoid second hand smoke Call the 24-hour hour crisis hotline for domestic abuse at Betty Silveira MD Oct 22, 2017 08:33
[2017-10-22] MEDS ORDERED: HYDR-3516 PO (08:38)
--- NOTE | 2017-10-22 08:38 | HHI.DS ---
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 He injured his right ankle and had significant pain and swelling so he came to the emergency room. He was given factor IX in the emergency room and recommended for further evaluation. He has 10 out of 10 pain and swelling in the ankle. He has not had any recent trauma or recent issues with his hemophilia. He had been seen Dr. Rodriguez in the past but since Dr. Rodriguez retired he had not been in follow with new broadcast producer. Most recently he was in the hospital in August for atypical chest pain and found to have a abnormal stress test with the recommendations for medical management per cardiology in consultation. Since that time he has been on Norvasc and atorvastatin. The patient also has had right shoulder discomfort for which she has been in follow-up with his orthopedist who recommended oral steroids in lieu of injections as well as hydrocodone for pain management. Here the pain in his ankle is quite severe and improved minimally with morphine but still quite painful. He is admitted for further evaluation and treatment CBC/BMP: 10/21/17 0957 10/21/17 0957 Significant Findings Laboratory Tests Test 10/20/17 22:30 10/21/17 05:45 10/21/17 09:57 White Blood Count 12.3 TH/MM3 (4.0-11.0) Mean Corpuscular Hemoglobin Concent 31.7 % (32.0-36.0) Neutrophils (%) (Auto) 80.3 % (16.0-70.0) 72.0 % (16.0-70.0) Neutrophils # (Auto) 9.9 TH/MM3 (1.8-7.7) Monocytes # (Auto) 1.0 TH/MM3 (0-0.9) 1.2 TH/MM3 (0-0.9) Activated Partial Thromboplast Time 42.8 SEC (24.3-30.1) Blood Urea Nitrogen 22 MG/DL (7-18) 21 MG/DL (7-18) Random Glucose 139 MG/DL (74-106) 131 MG/DL (74-106) Total Protein 8.5 GM/DL (6.4-8.2) Aspartate Amino Transf (AST/SGOT) 13 U/L (15-37) 11 U/L (15-37) Estimat Glomerular Filtration Rate 74 ML/MIN (>89) 80 ML/MIN (>89) Troponin I LESS THAN 0.02 NG/ML LESS THAN 0.02 NG/ML LESS THAN 0.02 NG/ML Lipase 47 U/L (73-393) Monocytes (%) (Auto) 11.3 % (0.0-8.0) Basophils (%) (Auto) 3.5 % (0.0-2.0) Basophils # (Auto) 0.4 TH/MM3 (0-0.2) Albumin 3.2 GM/DL (3.4-5.0) Imaging Last Impressions Ankle MRI 10/21/17 0000 Signed Impressions: Service Date/Time: Saturday, October 21, 2017 13:54 - CONCLUSION: 1. No definite fracture identified. 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 2. Probable remote injury to the talofibular ligaments. 3. Positive ankle joint effusion. 4. Tenosynovitis surrounds the flexor tendons at the medial posterior foot. Jay Anna MD Chest X-Ray 10/20/172127 Signed Impressions: Service Date/Time: Friday, October 20, 2017 21:39 - CONCLUSION: No acute disease. Jose Galloway MD Ankle X-Ray 10/20/17 0000 Signed Impressions: Service Date/Time: Friday, October 20, 2017 21:39 - CONCLUSION: Chronic bony changes described above. Acute bone abnormality is not seen. Jose Galloway MD PE at Discharge GENERAL: This is a well-nourished, well-developed patient, in no apparent distress. CARDIOVASCULAR: Regular rate and rhythm without murmurs, gallops, or rubs. RESPIRATORY: Clear to auscultation. Breath sounds equal bilaterally. No wheezes , rales, or rhonchi. GASTROINTESTINAL: Abdomen soft, non-tender, nondistended. Normal active bowel sounds MUSCULOSKELETAL: Right ankle swelling improved, other 3 extremities without clubbing, cyanosis, or edema. NEURO: Alert & Oriented x4 to person, place, time, situation. Moves all ext x4 Pt update on day of discharge Patient doing much better, pain improved. Patient does have mobility assistive devices at home which he will use Hospital Course This patient is a 67-year-old gentleman with a history of hemophilia and arthritis who has come in after trip and injury of his left ankle. Patient did receive factor IX. There is no evidence of hemarthrosis. He did have quite a bit of ankle sprain which was observed. Imaging was done which did show effusion expected for the type of injury. Patient will follow-up as outpatient. Pt Condition on Discharge: Good Discharge Disposition: Discharge Home Discharge Time: <= 30 minutes Discharge Instructions DIET: Follow Instructions for: As Tolerated, No Restrictions Activities you can perform: Regular-No Restrictions Follow up Referrals: Oncology/Hematology - 3 Weeks with Kavita Cote MD Continued Medications: Amlodipine (Norvasc) 5 Mg Tab 5 MG PO DAILY for Blood Pressure Management, #30 TAB Atorvastatin (Atorvastatin) 40 Mg Tab 40 MG PO DAILY for Cholesterol Management, #30 TAB Hydrocodone-Acetaminophen (Hydrocodone-Acetaminophen) 10-325 mg Tab 1 TAB PO Q4H PRN for PAIN, TAB 0 Refills Methocarbamol (Robaxin) 500 Mg Tab 500 MG PO TID for Muscle Spasm for 5 Days, TAB 0 Refills Methylprednisolone (Methylprednisolone) 8 Mg Tab 4 MG PO DAILY, TAB 0 Refills Betty Silveira MD Oct 22, 2017 08:38
[2017-10-22] MEDS ORDERED: WALKER WHEELS/F1 MIS (09:27)
--- NOTE | 2017-10-22 09:28 | HHI.FF ---
Face to Face Verification Diagnosis: (1) Ankle sprain (2) Hemophilia B Physical Therapy Order: Evaluate and Treat, Improve ambulation, Strength and gait training Home Health Nursing Order: Medical education I have seen patient Robles Henson on 10/22/17. My clinical findings support the need for the requested home health care services because: Ltd mobility - disease progression I certify that my clinical findings support that this patient is homebound because: Unsteady gait/balance Betty Silveira MD Oct 22, 2017 09:28
[2017-10-22] MEDS ORDERED: ACETAMINOPHEN/HYDROcodone 325 MG/10 MG TAB PO ONE (09:30)
== END 2017-10-22 10:31 | disposition home or self-care (01) ==
LOC: PHED 20:26 → PHEDA 23:26 → PH3A 10-21 02:23
PROVIDERS: ADMIT Hospitalist; ATTEND Hospitalist
DX: R07.9 Chest pain, unspecified (principal); S93.401A Sprain of unspecified ligament of right ankle, initial encounter; D67 Hereditary factor IX deficiency; M36.2 Hemophilic arthropathy; M25.472 Effusion, left ankle; M25.471 Effusion, right ankle; E78.5 Hyperlipidemia, unspecified; F41.9 Anxiety disorder, unspecified; Z79.891 Long term (current) use of opiate analgesic
CPT/HCPCS: 71045; 73610; 73721; 80053; 82550; 83690; 83735; 83880; 84484; 85025; 85610; 85730; 93005; 96374; 96375; 96376; 97162; 99285; E0113; G0378; G8987; G8988; J1170; J2270; J7195

== ENCOUNTER 2017-10-23 17:23 | Inpatient (IN) | payer OTHER, MEDICARE ==
[~2017-10-23] VITALS: Ht 185.4 cm; Wt 102.3 kg
[~2017-10-23 17:23] MED LIST changes: +HYDR-3516 PO; +HYDR-3583 PO; +METH8TAB3 PO; +WALKER WHEELS/F1 MIS
[2017-10-23 17:39] VITALS: BP 146/72; PULSE 96; RESP 20; TEMP 97.9; O2SAT 95
[2017-10-23 18:11] LABS: AUTOMATED NEUTROPHIL # 11.2 TH/MM3 (1.8-7.7); BASOPHIL % 0.3 % (0.0-2.0); EOSINOPHIL % 0.1 % (0.0-4.0); HEMATOCRIT 41.6 % (39.0-51.0); LYMPH % 9.2 % (9.0-44.0); LYMPHOCYTE # 1.3 TH/MM3 (1.0-4.8); MEAN CELL VOLUME 85.4 FL (80.0-100.0); MEAN CORPUSCULAR HEMOGLOBIN 28.9 PG (27.0-34.0); MEAN CORPUSCULAR HGB CONC 33.8 % (32.0-36.0); MEAN PLATELET VOLUME 7.9 FL (7.0-11.0); MONO % 8.5 % (0.0-8.0); MONOCYTE # 1.2 TH/MM3 (0-0.9); NEUT % 81.9 % (16.0-70.0); PLATELET COUNT 288 TH/MM3 (150-450); RED BLOOD COUNT 4.86 MIL/MM3 (4.50-5.90); RED CELL DISTRIBUTION WIDTH 14.4 % (11.6-17.2); WHITE BLOOD COUNT 13.7 TH/MM3 (4.0-11.0)
[2017-10-23] MEDS ORDERED: FACTOR IX RECOMBINANT 2,000 UNIT VIAL IV ONE (18:15)
[2017-10-23 18:24] LABS: INTERNATIONAL NORMALIZED RATIO 1.1 RATIO; PROTHROMBIN TIME - PATIENT 10.8 SEC (9.8-11.6)
[2017-10-23 18:35] LABS: ALBUMIN 3.2 GM/DL (3.4-5.0); ALT (GPT) 41 U/L (12-78); AST (GOT) 39 U/L (15-37); BICARBONATE 29.9 MEQ/L (21.0-32.0); BLOOD UREA NITROGEN 30 MG/DL (7-18); CALCIUM 9.4 MG/DL (8.5-10.1); CHLORIDE 98 MEQ/L (98-107); CREATININE 1.17 MG/DL (0.60-1.30); GLOMERULAR FILTRATION RATE 62 ML/MIN (>89); GLUCOSE,RANDOM 121 MG/DL (74-106); SODIUM (NA) 137 MEQ/L (136-145)
[2017-10-23 18:37] LABS: ALKALINE PHOSPHATASE 66 U/L (45-117); TOTAL BILIRUBIN ADULT 0.6 MG/DL (0.2-1.0); TOTAL PROTEIN 8.9 GM/DL (6.4-8.2)
--- NOTE | 2017-10-23 18:47 | PD ---
HPI Chief Complaint: Bleeding Time Seen by Provider: 18:01 Travel History International Travel<30 days: No Contact w/Intl Traveler<30days: No Traveled to known affect area: No History of Present Illness HPI The patient is 67 years old. He has a history of hemophilia factor IX deficiency and arrives to the ER with swelling in the right ankle with a request by Dr. Cote to undergo a BeneFIX infusion. He complains of pain and swelling in the right ankle which is more or less chronic however larger than normal and more painful than normal today. He also complains of right shoulder pain. He was discharged yesterday from the [facility] in [place] following admission for swelling of ankle. [facility] Past Medical History Arthritis: Yes Autoimmune Disease: No Blood Disorders: Yes (FACTOR IX DEFICIENCY) Heart Rhythm Problems: Yes (RECENT ISSUES WITH " POSITIVE STRESS TEST ") Cardiac Catheterization: No Cardiovascular Problems: Yes (UNABLE TO DO HEART CATH DUE TO FACTOR 9) High Cholesterol: No Congestive Heart Failure: No Diabetes: No Diminished Hearing: No Endocrine: No Genitourinary: No Heparin Induced Thrombocytopen: No Immune Disorder: No Musculoskeletal: Yes Neurologic: No Reproductive: No Respiratory: No Immunizations Current: Yes Tetanus Vaccination: > 5 Years Influenza Vaccination: Yes Past Surgical History Coronary Artery Bypass Graft: No Social History Alcohol Use: No Tobacco Use: No Substance Use: No Allergies-Medications (Allergen,Severity, Reaction): Coded Allergies: Sulfa (Sulfonamide Antibiotics) (Verified Allergy, Severe, RASH, 10/20/17) Reported Meds & Prescriptions Reported Meds & Active Scripts Active Hydrocodone-Acetamin 5-325 mg (Hydrocodone/Acetaminophen) 5 Mg-325 Mg Tablet 1 Tab PO Q4H PRN Robaxin (Methocarbamol) 500 Mg Tab 500 Mg PO TID 5 Days Norvasc (Amlodipine Besylate) 5 Mg Tab 5 Mg PO DAILY Atorvastatin (Atorvastatin Calcium) 40 Mg Tab 40 Mg PO DAILY Reported Methylprednisolone 8 Mg Tab 4 Mg PO DAILY Review of Systems Except as stated in HPI: all other systems reviewed are Neg General / Constitutional: No: Fever Physical Exam Narrative GENERAL: 67-year-old male well-nourished well-developed moderate distress secondary to pain in the right ankle Vital Signs Date Time Temp Pulse Resp B/P (MAP) Pulse Ox O2 Delivery O2 Flow Rate FiO2 10/23/17 18:05 89 16 98 Room Air 10/23/17 17:39 97.9 96 20 146/72 (96) 95 SKIN: Warm and dry. Warmth tenderness erythema about the right ankle. HEAD: Atraumatic. Normocephalic. EYES: Pupils equal and round. No scleral icterus. No injection or drainage. ENT: No nasal bleeding or discharge. Mucous membranes pink and moist. NECK: Trachea midline. No JVD. CARDIOVASCULAR: Regular rate and rhythm. RESPIRATORY: No accessory muscle use. Clear to auscultation. Breath sounds equal bilaterally. GASTROINTESTINAL: Abdomen soft, non-tender, nondistended. Hepatic and splenic margins not palpable. MUSCULOSKELETAL: Extremities without clubbing, cyanosis, or edema. No obvious deformities. 2+ dorsalis pedis bilaterally. NEUROLOGICAL: Awake and alert. No obvious cranial nerve deficits. Motor grossly within normal limits. Five out of 5 muscle strength in the arms and legs. Normal speech. PSYCHIATRIC: Appropriate mood and affect; insight and judgment normal. Data Data Last Documented VS Vital Signs Date Time Temp Pulse Resp B/P (MAP) Pulse Ox O2 Delivery O2 Flow Rate FiO2 10/23/17 18:05 89 16 98 Room Air 10/23/17 17:39 97.9 146/72 (96) Orders Orders Complete Blood Count With Diff (10/23/17 17:42) Comprehensive Metabolic Panel (10/23/17 17:42) Prothrombin Time / Inr (Pt) (10/23/17 17:42) Act Partial Throm Time (Ptt) (10/23/17 17:42) Factor Ix (Recombinant) Inj (Benefix Inj (10/23/17 18:15) Labs Laboratory Tests Test 10/23/17 18:01 White Blood Count 13.7 TH/MM3 Red Blood Count 4.86 MIL/MM3 Hemoglobin 14.0 GM/DL Hematocrit 41.6 % Mean Corpuscular Volume 85.4 FL Mean Corpuscular Hemoglobin 28.9 PG Mean Corpuscular Hemoglobin Concent 33.8 % Red Cell Distribution Width 14.4 % Platelet Count 288 TH/MM3 Mean Platelet Volume 7.9 FL Neutrophils (%) (Auto) 81.9 % Lymphocytes (%) (Auto) 9.2 % Monocytes (%) (Auto) 8.5 % Eosinophils (%) (Auto) 0.1 % Basophils (%) (Auto) 0.3 % Neutrophils # (Auto) 11.2 TH/MM3 Lymphocytes # (Auto) 1.3 TH/MM3 Monocytes # (Auto) 1.2 TH/MM3 Eosinophils # (Auto) 0.0 TH/MM3 Basophils # (Auto) 0.0 TH/MM3 CBC Comment DIFF FINAL Differential Comment Prothrombin Time 10.8 SEC Prothromb Time International Ratio 1.1 RATIO Activated Partial Thromboplast Time 44.2 SEC Blood Urea Nitrogen 30 MG/DL Creatinine 1.17 MG/DL Random Glucose 121 MG/DL Total Protein 8.9 GM/DL Albumin 3.2 GM/DL Calcium Level 9.4 MG/DL Alkaline Phosphatase 66 U/L Aspartate Amino Transf (AST/SGOT) 39 U/L Alanine Aminotransferase (ALT/SGPT) 41 U/L Total Bilirubin 0.6 MG/DL Sodium Level 137 MEQ/L Potassium Level 3.9 MEQ/L Chloride Level 98 MEQ/L Carbon Dioxide Level 29.9 MEQ/L Anion Gap 9 MEQ/L Estimat Glomerular Filtration Rate 62 ML/MIN MDM Medical Decision Making Medical Screen Exam Complete: Yes Emergency Medical Condition: Yes Medical Record Reviewed: Yes Differential Diagnosis Septic arthritis, hemophilia, anemia Narrative Course CBC & BMP Diagram 10/23/17 18:01 Total Protein 8.9 #H, Albumin 3.2 L, Calcium Level 9.4, Alkaline Phosphatase 66 , Aspartate Amino Transf (AST/SGOT) 39 H, Alanine Aminotransferase (ALT/SGPT) 41 , Total Bilirubin 0.6 d/w Dr Larry at 7pm. Dr Cote phone call and disposition pending. Diagnosis Primary Impression: Swollen ankles Additional Impression: Hemophilia B Uriah Mac MD Oct 23, 2017 18:47
--- NOTE | 2017-10-23 19:07 | PD ---
Physical Exam Narrative General: The patient is a well-developed well-nourished male in no acute distress. Head and Neck exam: Head is normocephalic atraumatic. Eyes: EOMI, pupils are equal round and reactive to light. Nose: Midline septum with pink mucous membranes Mouth: Dentition unremarkable. Moist mucus membranes. Posterior oropharynx is not erythematous. No tonsillar hypertrophy. Uvula midline. Airway patent. Neck: No palpable lymphadenopathy. No nuchal rigidity. No thyromegaly. Cardiovascular: Regular rate and rhythm without murmurs, gallops, or rubs. Lungs: Clear to auscultation bilaterally. No wheezes, rhonchi, or rales. Abdomen: Soft, without tenderness to palpation in all 4 quadrants of the abdomen. No guarding, rebound, or rigidity. Normal bowel sounds are audible. No tenderness on palpation of McBurney's point. Extremities: No clubbing, cyanosis, or edema, except in the area of interest, the right foot and ankle. On examination of the right foot and ankle the patient is noted to have erythema on bilateral sides of the ankle and into the foot with tenderness on palpation and warmth on palpation with decreased range of motion. 2+ pulses in all 4 extremities. Neurologic Exam: Grossly nonfocal. Skin Exam: No rash noted. Intact skin that is warm and dry. Data Data Last Documented VS Vital Signs Date Time Temp Pulse Resp B/P (MAP) Pulse Ox O2 Delivery O2 Flow Rate FiO2 10/23/17 19:20 97 18 146/85 (105) 96 Room Air 10/23/17 17:39 97.9 Orders Orders Complete Blood Count With Diff (10/23/17 17:42) Comprehensive Metabolic Panel (10/23/17 17:42) Prothrombin Time / Inr (Pt) (10/23/17 17:42) Act Partial Throm Time (Ptt) (10/23/17 17:42) Factor Ix (Recombinant) Inj (Benefix Inj (10/23/17 18:15) Sodium Chlorid 0.9% 500 Ml Inj (Ns 500 M (10/23/17 19:30) Blood Culture (10/23/17 19:21) Lactic Acid Sepsis Protocol (10/23/17 19:21) Piperacil-Tazo 3.375 Gm Premix (Zosyn 3. (10/23/17 19:30) Vancomycin Inj (Vancomycin Inj) (10/23/17 19:30) Admit Order (Ed Use Only) (10/23/17 19:25) Labs Laboratory Tests Test 10/23/17 18:01 White Blood Count 13.7 TH/MM3 Red Blood Count 4.86 MIL/MM3 Hemoglobin 14.0 GM/DL Hematocrit 41.6 % Mean Corpuscular Volume 85.4 FL Mean Corpuscular Hemoglobin 28.9 PG Mean Corpuscular Hemoglobin Concent 33.8 % Red Cell Distribution Width 14.4 % Platelet Count 288 TH/MM3 Mean Platelet Volume 7.9 FL Neutrophils (%) (Auto) 81.9 % Lymphocytes (%) (Auto) 9.2 % Monocytes (%) (Auto) 8.5 % Eosinophils (%) (Auto) 0.1 % Basophils (%) (Auto) 0.3 % Neutrophils # (Auto) 11.2 TH/MM3 Lymphocytes # (Auto) 1.3 TH/MM3 Monocytes # (Auto) 1.2 TH/MM3 Eosinophils # (Auto) 0.0 TH/MM3 Basophils # (Auto) 0.0 TH/MM3 CBC Comment DIFF FINAL Differential Comment Prothrombin Time 10.8 SEC Prothromb Time International Ratio 1.1 RATIO Activated Partial Thromboplast Time 44.2 SEC Blood Urea Nitrogen 30 MG/DL Creatinine 1.17 MG/DL Random Glucose 121 MG/DL Total Protein 8.9 GM/DL Albumin 3.2 GM/DL Calcium Level 9.4 MG/DL Alkaline Phosphatase 66 U/L Aspartate Amino Transf (AST/SGOT) 39 U/L Alanine Aminotransferase (ALT/SGPT) 41 U/L Total Bilirubin 0.6 MG/DL Sodium Level 137 MEQ/L Potassium Level 3.9 MEQ/L Chloride Level 98 MEQ/L Carbon Dioxide Level 29.9 MEQ/L Anion Gap 9 MEQ/L Estimat Glomerular Filtration Rate 62 ML/MIN [facility] Medical Record Reviewed: Yes Supervised Visit with LAM: No Narrative Course During the course of the patient's emergency department visit, the patient's history, examination, and differential diagnosis were reviewed with the patient. The patient was placed on a ekg monitor tech with oximetry and frequent blood pressure monitoring. The patient had IV access obtained and blood work sent for analysis. The patient's case was checked out to me by Dr. Mac. Please see his complete history and physical. The patient's case was checked out to me at the conclusion of his shift. A call has been placed out to the patient's database administration associate, Dr. Cote to discuss the patient's current symptoms. The patient was initially provided recombinant factor IX infusion. The patient's laboratory studies were reviewed and remarkable for a white count of 13.7 which is increased compared to previously. The patient was last admitted to the hospital on October 21., Hemoglobin 14, platelets 288 with 81.9 neutrophils, CMP is remarkable for a BUN of 30, glucose 121, AST 39, total protein 8.9, albumin 3.2, lactic acid is 1.7. PT PTT is remarkable for a PTT of 44.2. I spoke to , covering for Dr. Cote this patient's database administration associate. He agreed with the plan for the patient to be started on antibiotic for possible underlying cellulitis, versus septic arthritis. He agreed with the plan for the patient to be admitted to the hospital. The patient had blood cultures 2 collected. The patient was started on Zosyn and vancomycin IV. The patient's results were discussed with the patient, including the plan of care. I explained that further testing and/ or monitoring is indicated based on the patient's history, examination, and/ or laboratory findings. Therefore, I recommended admission for additional evaluation. The patient expressed understanding and was agreeable with this plan. The patient was admitted to the hospital in stable condition and sent to a bed under the care of the [facility] service. Physician Communication Physician Communication The patient's case including history, pertinent physical examination findings, and laboratory studies were discussed with Dr. Villagran. It was agreed that the patient would be admitted to the [facility] service. Diagnosis Primary Impression: Hemophilia B Additional Impressions: Right ankle swelling Leukocytosis Qualified Codes: D72.829 - Elevated white blood cell count, unspecified Lula Larry MD Oct 23, 2017 19:07
[2017-10-23 19:20] VITALS: BP 146/85; PULSE 97; RESP 18; O2SAT 96
[2017-10-23] MEDS ORDERED: PIPERACIL-TAZO 3.375 GM PREMIX 50 ML IV ONE (19:30)
[2017-10-23] MEDS ORDERED: SODIUM CHLORID 0.9% 500 ML INJ 500 ML IV ONE (19:30)
[2017-10-23] MEDS ORDERED: VANCOMYCIN INJ 1,000 MG in SODIUM CHLOR 0.9% 250 ML INJ 250 ML IV ONE (19:30)
[2017-10-23] MEDS ORDERED: NALOXONE HCL 0.4 MG/ML AMP IV PUSH PRN (20:00)
[2017-10-23] MEDS ORDERED: MAGNESIUM HYDROXIDE SUSP 30 ML CUP PO PRN (20:00)
[2017-10-23] MEDS ORDERED: SODIUM CHLORIDE 0.9% FLUSH 10 ML FLUSH IV FLUSH PRN (20:00)
[2017-10-23] MEDS ORDERED: ONDANSETRON HCL 4 MG/2 ML VIAL IVP PRN (20:00)
[2017-10-23] MEDS ORDERED: SENNOSIDES 8.6 MG TAB PO PRN (20:00)
[2017-10-23] MEDS ORDERED: LACTULOSE SYRUP 20 GM/30 ML CUP PO PRN (20:00)
[2017-10-23] MEDS ORDERED: Vancomycin Consult Pharmacy 1 EA OTHER SCH (20:00)
[2017-10-23] MEDS ORDERED: BISACODYL 10 MG SUPP RECTAL PRN (20:00)
[2017-10-23] MEDS ORDERED: ACETAMINOPHEN 325 MG TAB PO PRN (20:00)
[2017-10-23] MEDS: ACETAMINOPHEN/HYDROcodone 325 MG/5 MG TAB PO PRN (20:26)
[2017-10-23] MEDS: SODIUM CHLOR 0.9% 1000 ML INJ 1,000 ML IV SCH (20:26)
[2017-10-23] MEDS ORDERED: VANCOMYCIN 1,500 MG/NS 500 ML IV ONE ×2 (20:30)
--- NOTE | 2017-10-23 20:34 | HHI.HP ---
HPI Service [facility] Primary Care Physician Reginald Gibson M.D. Admission Diagnosis Right ankle swelling and redness r/o cellulitis versus septic joint Diagnoses: Travel History International Travel<30 Days: No Contact w/Intl Traveler <30 Da: No Traveled to Known Affected Are: No History of Present Illness 67-year-old male with a past medical history significant for factor IX deficiency, hypertension, hyperlipidemia and coronary artery disease presents to the emergency department for evaluation of a swollen right foot. The patient was recently discharged from [facility] where he was treated for similar symptoms. He reports that on he kicked the recliner with his right foot. His right foot and then proceeded to swell and he was given factor IX during his recent hospitalization. He states there was no improvement in the swelling in his right foot and he was referred by his storm sash maker for admission and factor IX administration. The patient reports that the swelling worsened last night and became warm to the touch. He denies any fever/chills. No chest pain or shortness of breath. No abdominal pain. No nausea/vomiting/ diarrhea. No lateralizing signs/symptoms. No weakness/fatigue. Review of Systems Except as stated in HPI: all other systems reviewed are Neg Past Family Social History Past Medical History Factor IX deficiency Hypertension Hyperlipidemia CAD -with recent abnormal NST Past Surgical History None Reported Medications Reported Meds & Active Scripts Active Hydrocodone-Acetamin 5-325 mg (Hydrocodone/Acetaminophen) 5 Mg-325 Mg Tablet 1 Tab PO Q4H PRN Robaxin (Methocarbamol) 500 Mg Tab 500 Mg PO TID 5 Days Norvasc (Amlodipine Besylate) 5 Mg Tab 5 Mg PO DAILY Atorvastatin (Atorvastatin Calcium) 40 Mg Tab 40 Mg PO DAILY Reported Methylprednisolone 8 Mg Tab 4 Mg PO DAILY Allergies: Coded Allergies: Sulfa (Sulfonamide Antibiotics) (Verified Allergy, Severe, RASH, 10/20/17) Family History Negative for CAD/DM Social History Occasional alcohol. Denies tobacco and illicit drugs. Physical Exam Vital Signs Vital Signs Date Time Temp Pulse Resp B/P (MAP) Pulse Ox O2 Delivery O2 Flow Rate FiO2 10/23/17 19:20 97 18 146/85 (105) 96 Room Air 10/23/17 18:05 89 16 98 Room Air 10/23/17 17:39 97.9 96 20 146/72 (96) 95 Physical Exam GENERAL: male sitting up in bed SKIN: Swollen and erythematous right foot that is mildly warm to touch. No induration or fluctuance. Neurovascularly intact. HEAD: Atraumatic. Normocephalic. No temporal or scalp tenderness. EYES: Pupils equal round and reactive. Extraocular motions intact. No scleral icterus. No injection or drainage. ENT: Nose without bleeding, purulent drainage or septal hematoma. Throat without erythema, tonsillar hypertrophy or exudate. Uvula midline. Airway patent. NECK: Trachea midline. No JVD or lymphadenopathy. Supple, nontender, no meningeal signs. CARDIOVASCULAR: Regular rate and rhythm without murmurs, gallops, or rubs. RESPIRATORY: Clear to auscultation. Breath sounds equal bilaterally. No wheezes , rales, or rhonchi. GASTROINTESTINAL: Abdomen soft, non-tender, nondistended. No hepato-splenomegaly , or palpable masses. No guarding. MUSCULOSKELETAL: Extremities without clubbing, cyanosis, or edema. No joint tenderness, effusion, or edema noted. No calf tenderness. NEUROLOGICAL: Awake and alert. Cranial nerves II through XII intact. Motor and sensory grossly within normal limits. Normal speech. Laboratory Laboratory Tests Test 10/23/17 18:01 10/23/17 19:30 White Blood Count 13.7 Red Blood Count 4.86 Hemoglobin 14.0 Hematocrit 41.6 Mean Corpuscular Volume 85.4 Mean Corpuscular Hemoglobin 28.9 Mean Corpuscular Hemoglobin Concent 33.8 Red Cell Distribution Width 14.4 Platelet Count 288 Mean Platelet Volume 7.9 Neutrophils (%) (Auto) 81.9 Lymphocytes (%) (Auto) 9.2 Monocytes (%) (Auto) 8.5 Eosinophils (%) (Auto) 0.1 Basophils (%) (Auto) 0.3 Neutrophils # (Auto) 11.2 Lymphocytes # (Auto) 1.3 Monocytes # (Auto) 1.2 Eosinophils # (Auto) 0.0 Basophils # (Auto) 0.0 CBC Comment DIFF FINAL Differential Comment Prothrombin Time 10.8 Prothromb Time International Ratio 1.1 Activated Partial Thromboplast Time 44.2 Blood Urea Nitrogen 30 Creatinine 1.17 Random Glucose 121 Total Protein 8.9 Albumin 3.2 Calcium Level 9.4 Alkaline Phosphatase 66 Aspartate Amino Transf (AST/SGOT) 39 Alanine Aminotransferase (ALT/SGPT) 41 Total Bilirubin 0.6 Sodium Level 137 Potassium Level 3.9 Chloride Level 98 Carbon Dioxide Level 29.9 Anion Gap 9 Estimat Glomerular Filtration Rate 62 Lactic Acid Level 1.7 Date/Time Source Procedure Growth Status 10/23/17 19:35 Blood Peripheral Aerobic Blood Culture Pending Received 10/23/17 19:35 Blood Peripheral Anaerobic Blood Culture Pending Received Result Diagram: 10/23/17 1801 10/23/17 1801 Caprini VTE Risk Assessment Caprini VTE Risk Assessment: Mod/High Risk (score >= 2) Caprini Risk Assessment Model Point Value = 1 Point Value = 2 Point Value = 3 Point Value = 5 Age 41-60 Minor surgery BMI > 25 kg/m2 Swollen legs Varicose veins or History of unexplained or recurrent spontaneous Oral contraceptives or hormone replacement Sepsis (< 1 month) Serious lung disease, including pneumonia (< 1 month) Abnormal pulmonary function Acute myocardial infarction Congestive heart failure (< 1 month) History of inflammatory bowel disease Medical patient at bed rest Age 61-74 Arthroscopic surgery Major open surgery (> 45 min) Laparoscopic surgery (> 45 min) Malignancy Confined to bed (> 72 hours) Immobilizing plaster cast Central venous access Age >= 75 History of VTE Family history of VTE Factor V Leiden Prothrombin [id number] Lupus anticoagulant Anticardiolipin antibodies Elevated serum homocysteine Heparin-induced thrombocytopenia Other congenital or acquired thrombophilia Stroke (< 1 month) Elective arthroplasty Hip, pelvis, or leg fracture Acute spinal cord injury (< 1 month) Prophylaxis Regimen Total Risk Factor Score Risk Level Prophylaxis Regimen 0-1 Low Early ambulation 2 Moderate Order ONE of the following: *Sequential Compression Device (SCD) *Heparin 5000 units SQ BID 3-4 Higher Order ONE of the following medications: *Heparin 5000 units SQ TID *Enoxaparin/Lovenox 40 mg SQ daily (WT < 150 kg, CrCl > 30 mL/min) *Enoxaparin/Lovenox 30 mg SQ daily (WT < 150 kg, CrCl > 10-29 mL/min) *Enoxaparin/Lovenox 30 mg SQ BID (WT < 150 kg, CrCl > 30 mL/min) AND/OR *Sequential Compression Device (SCD) 5 or more Highest Order ONE of the following medications: *Heparin 5000 units SQ TID (Preferred with Epidurals) *Enoxaparin/Lovenox 40 mg SQ daily (WT < 150 kg, CrCl > 30 mL/min) *Enoxaparin/Lovenox 30 mg SQ daily (WT < 150 kg, CrCl > 10-29 mL/min) *Enoxaparin/Lovenox 30 mg SQ BID (WT < 150 kg, CrCl > 30 mL/min) AND *Sequential Compression Device (SCD) Assessment and Plan Assessment and Plan Assessment/plan: 1. Factor IX deficiency/possible bleeding Patient sustained trauma to his foot on and has had swelling since that time Hematology consulted, appreciate recommendations Per hematology recommendations, factor IX given in the emergency department Monitor closely for signs of bleeding 2. Possible cellulitis Patient with mild leukocytosis with left shift and warm right foot Status post vancomycin/Zosyn in the emergency department Lactic acid, blood cultures pending Clindamycin 3. Coronary artery disease/hypertension/hyperlipidemia Continue home medications 4. Abnormal NST Continue optimal medical management FEN Diet heart healthy Electrolytes: monitor and replete prn No pharmacologic anticoagulation given factor IX deficiency and bleeding risk Physician Certification 2 Midnight Certification Type: Admission for Inpatient Services Order for Inpatient Services The services are ordered in accordance with Medicare regulations or non- Medicare payer requirements, as applicable. In the case of services not specified as inpatient-only, they are appropriately provided as inpatient services in accordance with the 2-midnight benchmark. Estimated LOS (days): 2 2 days is the estimated time the patient will need to remain in the hospital, assuming treatment plan goals are met and no additional complications. Post-Hospital Plan: Not yet determined Amarilis Villagran MD Oct 23, 2017 20:33
[2017-10-23] MEDS: SODIUM CHLORIDE 0.9% FLUSH 10 ML FLUSH IV FLUSH SCH (21:00)
[2017-10-23 22:05] VITALS: BP 112/72; PULSE 88; RESP 18; TEMP 98.4; O2SAT 94
[2017-10-23] MEDS: MORPHINE SULFATE 2 MG/ML SYRINGE IV PRN (23:15)
[2017-10-23 23:44] VITALS: PULSE 88
[2017-10-24] VITALS (8 sets, daily range): BP systolic 113–130; BP diastolic 70–75; PULSE 90–106; RESP 16–18; TEMP 98.3–99.5; O2SAT 95
[2017-10-24] MEDS ORDERED: PIPERACIL-TAZO 3.375 GM PREMIX 50 ML IV SCH (02:00)
[2017-10-24] MEDS: MORPHINE SULFATE 2 MG/ML SYRINGE IV PRN (04:51)
[2017-10-24] MEDS: SODIUM CHLOR 0.9% 1000 ML INJ 1,000 ML IV SCH ×2 (05:10→20:03)
[2017-10-24 07:01] LABS: AUTOMATED NEUTROPHIL # 7.8 TH/MM3 (1.8-7.7); BASOPHIL % 0.4 % (0.0-2.0); EOSINOPHIL % 0.2 % (0.0-4.0); HEMATOCRIT 36.7 % (39.0-51.0); HEMOGLOBIN 12.5 GM/DL (13.0-17.0); LYMPH % 9.3 % (9.0-44.0); LYMPHOCYTE # 0.9 TH/MM3 (1.0-4.8); MEAN CELL VOLUME 84.4 FL (80.0-100.0); MEAN CORPUSCULAR HEMOGLOBIN 28.7 PG (27.0-34.0); MEAN CORPUSCULAR HGB CONC 34.1 % (32.0-36.0); MEAN PLATELET VOLUME 7.8 FL (7.0-11.0); MONO % 9.9 % (0.0-8.0); NEUT % 80.2 % (16.0-70.0); PLATELET COUNT 244 TH/MM3 (150-450); RED BLOOD COUNT 4.35 MIL/MM3 (4.50-5.90); WHITE BLOOD COUNT 9.7 TH/MM3 (4.0-11.0)
[2017-10-24 07:22] LABS: BICARBONATE 24.5 MEQ/L (21.0-32.0); CALCIUM 8.4 MG/DL (8.5-10.1); CREATININE 0.94 MG/DL (0.60-1.30)
--- NOTE | 2017-10-24 08:55 | MB ---
cc: Kavita Cote MD DATE: 10/24/2017 DATE OF : 02/14/1947 DATE OF SERVICE: 10/24/2017 REFERRING PHYSICIAN: Dr. Larry. CHIEF COMPLAINT: Dr. Larry requested consultation for Mr. Henson regarding hemophilia B and acute bleed right ankle. HISTORY OF PRESENT ILLNESS: Mr. Henson is a 67-year-old man with hemophilia B. He was well known to my partner, Dr. Remberto Rodriguez, who is now retired. Dr. Rodriguez documented factor IX activity level around 11%. His PTT is mildly prolonged. He was seen in consultation on 09/27/2017 where he presented with chest pain. He was seen by Cardiology. He was treated conservatively for atypical chest pain. He was placed on aspirin prophylaxis. Temporally related to taking about 3 doses of his aspirin, he was getting out of his recliner. He had hurt his shoulder and subsequently hurt his right ankle. He developed a bleed. He treated the right ankle conservatively along with the right shoulder. It became progressively worse with swelling. He presented to the emergency room on 10/20/2017. He was treated with a suboptimal dose of clotting factor. He received BeneFIX 2000 units along with pain medication. He did not feel any significant relief in the right ankle. He was seen in clinic on 10/23/2017. He was on an unscheduled visit seen at the end of the day. Unfortunately, he did not have clearance from his insurance company to allow factor administration in the clinic. [facility] also [facility] He had worsening symptoms in the right ankle. For this reason, he was referred to the emergency room for treatment. He was seen by Dr. Lula Larry who coordinated a factor infusion of 4500 units of BeneFIX. He was also started on antibiotic therapy. His right ankle is feeling better today. He feels that it is softer; it is more liquid. He is able to move it. The swelling has gone down. He denies any fevers; however, he was tachycardic and low-grade temperature noted in the emergency room. His right shoulder still hurts him. He responded well to the BeneFIX. PAST MEDICAL HISTORY: Hemophilia B baseline activity level 11%, right ankle hemophiliac arthropathy, atypical chest pain. PAST SURGICAL HISTORY: Tooth extraction, Mohs surgery. FAMILY HISTORY: Grandfather had hemophilia B. No family history of coronary artery disease. Mother was hemophilia carrier. SOCIAL HISTORY: He is a nonsmoker, denies any illicit drug use. He is retired. Drinks alcohol rarely. He lives with his . ALLERGIES: SULFA MEDICATION. CURRENT MEDICATIONS: Include: 1. Norvasc. 2. Lipitor. 3. Methylprednisolone. 4. Clindamycin. 5. [place]. PHYSICAL EXAMINATION: VITAL SIGNS: Temperature 99.5, heart rate 93, respiratory rate 18, blood pressure 115/70, saturation 95%. GENERAL: Mr. Henson is a well-developed, well-nourished man. He has evidence of arthritis in his right shoulder. HEENT: His pupils are round, reactive to light and accommodation. Oropharynx is clear. NECK: Supple. LUNGS: Clear. CARDIOVASCULAR: Reveals mild tachycardia. ABDOMEN: Benign. LOWER EXTREMITIES: With decreased swelling of the right foot. Distal erythema and swelling in the lateral aspect of his right ankle. There is erythema that has appeared to go down. LABORATORY DATA: BUN of 24, creatinine 0.9, glucose 171. Hemoglobin of 12.5. ASSESSMENT AND PLAN: Mr. Henson is a 67-year-old man with mild hemophilia B, recent trauma to the right ankle and bleeding. He had delay in his treatment for his right ankle bleed, suspected to be arthritic in nature. The MRI is not sensitive enough to see the bleed in the joint. He has got chronic changes from repeated bleed and arthritis in the right ankle, temporally related to BeneFIX 4500. He has a decrease in swelling. In light of the delayed treatment, I recommend continue therapy with the BeneFIX. There are a long-acting factor IX products which is not available in the hospital. He was treated with BeneFIX as it the only factor IX product that is available to us. On an outpatient basis I am trying to obtain Idelvion, Alprolix or Rebinyn, long-acting factor IX products, benefit of being able to be administered once and now continue to protect him as he heals from the right ankle. The case was discussed with our pharmacist. They do not have the long-acting IX products in the formulary. They will, however, be able to obtain BeneFIX another 4000 unit later today. I plan to check a factor IX activity level immediately prior to the administration of the BeneFIX to know his baseline factor IX level at the [facility]. We will continue to monitor his ankle response. I defer to the primary team for treatment of a possible cellulitis. I recommend deferring any invasive procedure. He is responding to the BeneFIX. MD FREDDY Galvan/JENNI , 08:08 AM , 08:55 AM
[2017-10-24] MEDS ORDERED: CLINDAMYCIN 600 MG/NS PREMIX 50 ML IV SCH (09:00)
[2017-10-24] MEDS: methylPREDNISolone 4 MG TAB PO SCH (09:17)
[2017-10-24] MEDS: amLODIPine BESYLATE 5 MG TAB PO SCH (09:17)
[2017-10-24] MEDS: ATORVASTATIN 40 MG TAB PO SCH (09:17)
[2017-10-24] MEDS: SODIUM CHLORIDE 0.9% FLUSH 10 ML FLUSH IV FLUSH SCH ×2 (09:17→21:00)
[2017-10-24] MEDS: ACETAMINOPHEN/HYDROcodone 325 MG/5 MG TAB PO PRN ×2 (10:35→20:04)
--- NOTE | 2017-10-24 11:35 | HHI.PR ---
Subjective Remarks Follow up on patient with right ankle cellulitis, factor IX deficiency. Patient seen and examined. Patient reports his right ankle seemed to improve some overnight but is worse this morning. He complains of severe pain in the right ankle and is unable to bear any weight. Patient kicked his recliner on with subsequent swelling and was treated with factor IX while at PO and then discharged. 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 Patient was seen by his hypoid gear tester yesterday who sent him back to the hospital for admission and additional factor IX administration. He denies any fever or chills. Patient with abnormal stress test in August evaluated by cardiology who recommended medical management. Patient reports brief episode of left sided chest pain either last night or this morning, patient is unable to give more specifics. Objective Vitals Vital Signs Date Time Temp Pulse Resp B/P (MAP) Pulse Ox O2 Delivery O2 Flow Rate FiO2 10/24/17 09:12 98.3 90 16 113/73 (86) 95 10/24/17 05:11 16 10/24/17 04:00 106 10/24/17 03:19 99.5 93 18 115/70 (85) 95 10/23/17 23:44 88 10/23/17 22:19 16 10/23/17 22:05 98.4 88 18 112/72 (85) 94 10/23/17 19:20 97 18 146/85 (105) 96 Room Air 10/23/17 18:05 89 16 98 Room Air 10/23/17 17:39 97.9 96 20 146/72 (96) 95 I/O 10/23/17 10/23/17 10/23/17 10/24/17 10/24/17 10/24/17 07:00 15:00 23:00 07:00 15:00 23:00 Intake Total 550 ml 1370 ml Output Total 400 ml Balance 550 ml 1370 ml -400 ml Intake Oral 620 ml IV Total 550 ml 750 ml Output Urine Total 400 ml # Voids 2 Result Diagram: 10/24/17 0610 10/24/17 0610 Objective Remarks GENERAL: WDWN male patient, INAD. Awake, somewhat lethargic. Lying in hospital bed. is at the bedside. SKIN: Swollen and erythematous right foot/ankle that is mildly warm to touch. Exquisitely tender to palpation. No induration or fluctuance. Neurovascularly intact. Distal pulses 2+. HEAD: Atraumatic. Normocephalic. No temporal or scalp tenderness. EYES: Pupils equal round and reactive. Extraocular motions intact. No scleral icterus. No injection or drainage. ENT: Nose without bleeding or purulent drainage. Airway patent. MMM. NECK: Trachea midline. No JVD or lymphadenopathy. CARDIOVASCULAR: Regular rate and rhythm without murmurs, gallops, or rubs. RESPIRATORY: Clear to auscultation. Breath sounds equal bilaterally. No wheezes , rales, or rhonchi. GASTROINTESTINAL: Abdomen soft, non-tender, nondistended. No hepato-splenomegaly , or palpable masses. No guarding. MUSCULOSKELETAL: Extremities without clubbing, cyanosis, or edema except for right foot/ankle as described above. No calf tenderness. NEUROLOGICAL: Awake, somewhat lethargic. Cranial nerves II through XII grossly intact. Able to move all extremities spontaneously. Normal speech. PSYCHIATRIC: Calm and pleasant. Cooperative. Medications and IVs Current Medications Medications (Trade) Dose Ordered Sig/Joi Route Start Time Stop Time Status Last Admin Sodium Chloride 1,000 ml @ 100 mls/hr Q10H IV 10/23/17 20:00 10/24/17 05:10 (NS Flush) 2 ml UNSCH PRN IV FLUSH 10/23/17 20:00 (NS Flush) 2 ml BID IV FLUSH 10/23/17 21:00 10/24/17 09:17 (Tylenol) 650 mg Q4H PRN PO 10/23/17 20:00 (Zofran Inj) 4 mg Q6H PRN IVP 10/23/17 20:00 (Narcan Inj) 0.4 mg UNSCH PRN IV PUSH 10/23/17 20:00 (Milk Of Magnesia Liq) 30 ml Q12H PRN PO 10/23/17 20:00 (Senokot) 17.2 mg Q12H PRN PO 10/23/17 20:00 (Dulcolax Supp) 10 mg DAILY PRN RECTAL 10/23/17 20:00 (Lactulose Liq) 30 ml DAILY PRN PO 10/23/17 20:00 (Norvasc) 5 mg DAILY PO 10/24/17 09:00 10/24/17 09:17 (Lipitor) 40 mg DAILY PO 10/24/17 09:00 10/24/17 09:17 ([place] 5-325 Mg) 1 tab Q4H PRN PO 10/23/17 20:15 10/23/17 20:26 (Medrol) 4 mg DAILY PO 10/24/17 09:00 10/24/17 09:17 (Morphine Inj) 2 mg Q3H PRN IV 10/23/17 21:30 10/24/17 04:51 (BeneFIX INJ) 4,000 units ONCE ONCE IV 10/24/17 18:00 10/24/17 18:01 Clindamycin Phosphate 600 mg/ Sodium Chloride 104 ml @ 100 mls/hr Q8H IV 10/24/17 17:00 A/P Assessment and Plan 67-year-old male with a past medical history significant for factor IX deficiency, hypertension, hyperlipidemia and coronary artery disease presents to the emergency department for evaluation of a swollen right foot s/p trauma this past . 1. Factor IX deficiency/possible bleeding Patient sustained trauma to his foot on and has had swelling since that time MRI right ankle 10/21 No definite fracture identified. 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 Hematology consulted, appreciate recommendations. Given Factor IX in the ED. Dr. Cote plans to give additional dose of BeneFIX and monitor patients response. Monitor closely for signs of bleeding 2. Possible cellulitis right ankle Immunocompromised on po steroids for right shoulder pain Patient with mild leukocytosis with left shift and warm right foot. White count now normal. Afebrile. lactic acid 1.7 Status post vancomycin/Zosyn in the emergency department. Now on IV Clindamycin. Blood cultures with no growth in 1 day, continue to follow Obtain CRP Joint effusion and tenosynovitis on previous MRI. No improvement this morning per patient report. Unable to bear weight. Consult podiatry, appreciate recommendations Obtain soft tissue US right ankle r/o underlying abscess Continue with PT 3. Coronary artery disease/hypertension/hyperlipidemia Continue home medications 4. Abnormal NST Continue optimal medical management C/o chest pain either last night or this morning, patient unsure Obtain initial troponin and conveyor monitor on telemetry 5. Hyperglycemia No reported hx of DM obtain A1c level FEN Diet heart healthy Electrolytes: monitor and replete prn No pharmacologic anticoagulation given factor IX deficiency and bleeding risk Discharge Planning Pending clinical improvement, blood cx results, Podiatry and Hematology clearance Daria Mejia Oct 24, 2017 11:35
--- NOTE | 2017-10-24 12:08 | RADRPT ---
EXAM DATE/TIME: 10/24/2017 11:23 [facility] COMPARISON: No previous studies available for comparison. INDICATIONS : Right ankle swelling and redness after bumping it on a chair. MEDICAL HISTORY : Hypertension. Hemophilia. Factor IX deficiency. Coronary artery disease. Hyperlipidemia. Right ki dney cyst. Arthritis. SURGICAL HISTORY : ENCOUNTER: Initial ACUITY: 4-6 days PAIN SCORE: 10/10 LOCATION: Right foot. AREA EVALUATED: Right foot. FINDINGS: Focused sonographic examination of the lateral aspect of the right foot was performed. There is diffu se soft tissue edema in this region. There is a focal ovoid fluid collection measuring 1.6 x 1.2 x 0. 9 cm. CONCLUSION: 1.6 cm cystic area in the superficial soft tissues of the lateral foot may represent hematoma or cyst . Aubrey Philippe MD on October 24, 2017 at 12:02 Board Certified Radiologist. This report was verified electronically.
[2017-10-24] MEDS ORDERED: Vancomycin Consult Pharmacy 1 EA OTHER SCH (16:15)
--- NOTE | 2017-10-24 16:41 | RADRPT ---
EXAM DATE/TIME: 10/24/2017 16:12 [facility] COMPARISON: MRI ANKLE RIGHT W/O CONTRAST, October 21, 2017, 13:54. ANKLE RIGHT COMPLETE ([id number]), October 20, 2017, 21:39. INDICATIONS : Pain and swelling 360 degrees around right ankle, unable to bear weight MEDICAL HISTORY : Angina. factor 9 blood disorder SURGICAL HISTORY : None. ENCOUNTER: Subsequent ACUITY: 4 - 6 days PAIN SCORE: 6/10 LOCATION: Right ankle FINDINGS: 3 views right ankle. Moderate to large circumferential osteophytes. Alignment within normal limits. N o evidence of fracture. Moderate-sized Achilles calcaneal spur. CONCLUSION: 1. 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 2. No evidence of fracture. Aubrey Philippe MD on October 24, 2017 at 16:36 Board Certified Radiologist. This report was verified electronically.
[2017-10-24] MEDS ORDERED: CLINDAMYCIN INJ 600 MG in SODIUM CHLORIDE 0.9% INJ 100 ML IV SCH (17:00)
[2017-10-24] MEDS ORDERED: VANCOMYCIN INJ 2,000 MG in SODIUM CHLORID 0.9% 500 ML INJ 500 ML IV ONE (18:00)
[2017-10-24] MEDS ORDERED: FACTOR IX RECOMBINANT 2,000 UNIT VIAL IV ONE (18:00)
[2017-10-24 22:25] LABS: HEMOGLOBIN A1C 6.1 % (4.3-6.0)
[2017-10-25] VITALS (13 sets, daily range): BP systolic 108–135; BP diastolic 68–79; PULSE 57–90; RESP 16–22; TEMP 97.9–101.4; O2SAT 92–96
[2017-10-25] MEDS: SODIUM CHLOR 0.9% 1000 ML INJ 1,000 ML IV SCH ×3 (02:00→22:00)
[2017-10-25] MEDS: ACETAMINOPHEN/HYDROcodone 325 MG/5 MG TAB PO PRN ×2 (05:29→23:57)
[2017-10-25] MEDS: VANCOMYCIN INJ 1,750 MG in SODIUM CHLORID 0.9% 500 ML INJ 500 ML IV SCH ×2 (05:31→17:25)
[2017-10-25] MEDS: SODIUM CHLORIDE 0.9% FLUSH 10 ML FLUSH IV FLUSH SCH ×2 (08:44→21:08)
[2017-10-25] MEDS: methylPREDNISolone 4 MG TAB PO SCH (08:59)
[2017-10-25] MEDS: ATORVASTATIN 40 MG TAB PO SCH (08:59)
[2017-10-25] MEDS: amLODIPine BESYLATE 5 MG TAB PO SCH (09:00)
[2017-10-25 12:24] LABS: AUTOMATED NEUTROPHIL # 6.4 TH/MM3 (1.8-7.7); BASOPHIL % 0.4 % (0.0-2.0); EOSINOPHIL # 0.1 TH/MM3 (0-0.4); EOSINOPHIL % 0.8 % (0.0-4.0); HEMATOCRIT 37.7 % (39.0-51.0); HEMOGLOBIN 12.8 GM/DL (13.0-17.0); LYMPH % 10.8 % (9.0-44.0); LYMPHOCYTE # 0.9 TH/MM3 (1.0-4.8); MEAN CELL VOLUME 85.2 FL (80.0-100.0); MEAN PLATELET VOLUME 7.5 FL (7.0-11.0); MONO % 10.2 % (0.0-8.0); MONOCYTE # 0.8 TH/MM3 (0-0.9); NEUT % 77.8 % (16.0-70.0); PLATELET COUNT 261 TH/MM3 (150-450); RED BLOOD COUNT 4.42 MIL/MM3 (4.50-5.90); RED CELL DISTRIBUTION WIDTH 14.8 % (11.6-17.2); WHITE BLOOD COUNT 8.2 TH/MM3 (4.0-11.0)
--- NOTE | 2017-10-25 12:43 | PD.ID.CON ---
History of Present Illness Service ID Consult Requested By Daria Smyth PA-C Reason for Consult Evaluation and Mment of MSSA bacteremia Primary Care Physician Reginald Gibson M.D. Diagnoses: History of Present Illness Mr. 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 Remberto Baker is now retired. Patient subsequently did not seek any medical attention until more recently when he saw Dr. Cote during hospital admission. He has not had a chance to follow up outpatient yet. Per review of notes it appears that his documented factor IX activity level is around 11%. 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 He was seen in consultation on 09/27/2017 where he presented with chest pain and seen by Cardiology. He was treated conservatively for atypical chest pain. Patient reports that it hurt his shoulder and subsequently he his right ankle. The shoulder pain was treated conservatively. On October 20, 2017 patient presented to the emergency room when his right ankle started swelling up. He reports that he may have kicked a recliner that led to the swelling of his right ankle. Due to progressive worsening of swelling and pain he decided to come to the emergency department. Patient received a dose of the clotting factor as well as benefits 2000 units along with pain medications but since there was no relief he came back to the hospital. Subsequently patient was seen in the hematology clinic for an unscheduled OB visit. Patient did not have clearance from his insurance company to allow factor administration in the clinic. Due to worsening symptoms in the right ankle he was sent to the emergency department from the hematology clinic. Patient reports that since his antibiotics were started he feels a little better. His is in the room and reports that patient appears to be confused and is not at baseline mentally in terms of clarity of thinking. Sepsis workup was initiated blood cultures grew staph aureus very gene identification is possible methicillin sensitive staph aureus final identification pending. Infectious disease is consulted for evaluation and management of MSSA bacteremia in a hemophilia patient. Review of Systems ROS Limitations: Poor Historian Constitutional: DENIES: Diaphoretic episodes, Fatigue, Fever, Weight gain, Weight loss, Chills, Dizziness, Change in appetite, Night Sweats Endocrine: DENIES: Heat/cold intolerance, Polydipsia, Polyuria, Polyphagia Eyes: DENIES: Blurred vision, Diplopia, Eye inflammation, Eye pain, Vision loss , Photosensitivity, Double Vision Ears, nose, mouth, throat: DENIES: Tinnitus, Hearing loss, Vertigo, Nasal discharge, Oral lesions, Throat pain, Hoarseness, Ear Pain, Running Nose, Epistaxis, Sinus Pain, Toothache, Odynophagia Respiratory: DENIES: Apneas, Cough, Snoring, Wheezing, Hemoptysis, Sputum production, Shortness of breath Cardiovascular: DENIES: Chest pain, Palpitations, Syncope, Dyspnea on Exertion , PND, Lower Extremity Edema, Orthopnea, Claudication Gastrointestinal: DENIES: Abdominal pain, Black stools, Bloody stools, Constipation, Diarrhea, Nausea, Vomiting, Difficulty Swallowing, Anorexia Genitourinary: DENIES: Sexual dysfunction, Urinary frequency, Urinary incontinence, Urgency, Hematuria, Dysuria, Nocturia, Penile Discharge, Testicular Pain, Testicular Swelling Musculoskeletal: COMPLAINS OF: Joint pain, Joint Swelling, DENIES: Muscle aches , Stiffness, Back pain, Neck pain Integumentary: COMPLAINS OF: Abnormal pigmentation, DENIES: Nail changes, Pruritus, Rash Hematologic/lymphatic: COMPLAINS OF: Bruising, DENIES: Lymphadenopathy Immunologic/allergic: DENIES: Eczema, Urticaria Neurologic: DENIES: Abnormal gait, Headache, Localized weakness, Paresthesias, Seizures, Speech Problems, Tremor, Poor Balance Psychiatric: DENIES: Anxiety, Confusion, Mood changes, Depression, Hallucinations, Agitation, Suicidal Ideation, Homicidal Ideation, Delusions Except as stated in HPI: all other systems reviewed are Neg Past Family Social History Allergies: Coded Allergies: Sulfa (Sulfonamide Antibiotics) (Verified Allergy, Severe, RASH, 10/20/17) Past Medical History Hemophilia B baseline activity level 11%, right ankle hemophiliac arthropathy, atypical chest pain. Past Surgical History Tooth extraction, Mohs surgery. Reported Medications Reported Meds & Active Scripts Active Hydrocodone-Acetamin 5-325 mg (Hydrocodone/Acetaminophen) 5 Mg-325 Mg Tablet 1 Tab PO Q4H PRN Robaxin (Methocarbamol) 500 Mg Tab 500 Mg PO TID 5 Days Norvasc (Amlodipine Besylate) 5 Mg Tab 5 Mg PO DAILY Atorvastatin (Atorvastatin Calcium) 40 Mg Tab 40 Mg PO DAILY Reported Methylprednisolone 8 Mg Tab 4 Mg PO DAILY Active Ordered Medications Current Medications Medications (Trade) Dose Ordered Sig/Joi Route Start Time Stop Time Status Last Admin Sodium Chloride 1,000 ml @ 100 mls/hr Q10H IV 10/23/17 20:00 10/25/17 05:32 (NS Flush) 2 ml UNSCH PRN IV FLUSH 10/23/17 20:00 (NS Flush) 2 ml BID IV FLUSH 10/23/17 21:00 10/24/17 09:17 (Tylenol) 650 mg Q4H PRN PO 10/23/17 20:00 10/25/17 05:30 (Zofran Inj) 4 mg Q6H PRN IVP 10/23/17 20:00 (Narcan Inj) 0.4 mg UNSCH PRN IV PUSH 10/23/17 20:00 (Milk Of Magnesia Liq) 30 ml Q12H PRN PO 10/23/17 20:00 (Senokot) 17.2 mg Q12H PRN PO 10/23/17 20:00 (Dulcolax Supp) 10 mg DAILY PRN RECTAL 10/23/17 20:00 (Lactulose Liq) 30 ml DAILY PRN PO 10/23/17 20:00 (Norvasc) 5 mg DAILY PO 10/24/17 09:00 10/24/17 09:17 (Lipitor) 40 mg DAILY PO 10/24/17 09:00 10/25/17 08:59 ([place] 5-325 Mg) 1 tab Q4H PRN PO 10/23/17 20:15 10/25/17 05:29 (Medrol) 4 mg DAILY PO 10/24/17 09:00 10/25/17 08:59 (Morphine Inj) 2 mg Q3H PRN IV 10/23/17 21:30 10/24/17 04:51 Pharmacy Profile Note 0 ml @ 0 mls/hr UNSCH OTHER 10/24/17 16:15 Miscellaneous Information SPECIFIC LAB TO BE JAN... ONCE ONCE .XX 10/26/17 05:45 10/26/17 05:46 Vancomycin HCl 1750 mg/Sodium Chloride 517.5 ml @ 250 mls/hr Q12H IV 10/25/17 06:00 10/25/17 05:31 Cefazolin Sodium/ Dextrose 50 ml @ 100 mls/hr Q8H IV 10/25/17 12:45 UNV Family History Grandfather had hemophilia B. No family history of coronary artery disease. Mother was hemophilia carrier. Social History He is a nonsmoker, denies any illicit drug use. He is retired. Drinks alcohol rarely. He lives with his . Physical Exam Vital Signs Vital Signs Date Time Temp Pulse Resp B/P (MAP) Pulse Ox O2 Delivery O2 Flow Rate FiO2 10/25/17 12:00 98.2 72 18 128/76 (93) 96 10/25/17 07:55 98.0 57 18 108/68 (81) 92 10/25/17 07:31 78 10/25/17 06:00 87 10/25/17 05:02 85 10/25/17 04:03 83 10/25/17 04:03 98.7 10/25/17 04:03 101.4 90 16 135/77 (96) 93 10/25/17 03:02 80 10/25/17 02:01 83 10/25/17 01:15 97.9 80 18 122/73 (89) 95 10/25/17 01:03 84 10/24/17 22:04 18 10/24/17 20:54 99.1 91 18 116/71 (86) 95 10/24/17 15:03 98.3 92 18 130/74 (92) 95 10/24/17 15:00 97 Physical Exam GENERAL: This is a well-nourished, well-developed patient, in no apparent distress. SKIN: No rashes, ecchymoses or lesions. Cool and dry. HEAD: Atraumatic. Normocephalic. No temporal or scalp tenderness. EYES: Pupils equal round and reactive. No scleral icterus. No injection or drainage. ENT: Nose without bleeding, purulent drainage or septal hematoma. Throat without erythema, tonsillar hypertrophy or exudate. Uvula midline. Airway patent. NECK: Trachea midline. Supple, nontender, no meningeal signs. CARDIOVASCULAR: HS audible. RESPIRATORY: Clear to auscultation. Breath sounds equal bilaterally. GASTROINTESTINAL: Abdomen soft, non-tender, nondistended. MUSCULOSKELETAL: Right LE outer aspect with erythema noted, induration and tenderness with decreased ROM. NEUROLOGICAL: Awake and alert. oriented but not clear on facts (based on assessment not at mental baseline), Non focal exam. Psych cooperative IV line sites with no e.o infection. Laboratory Laboratory Tests Test 10/24/17 18:16 10/25/17 11:41 White Blood Count 8.2 Red Blood Count 4.42 Hemoglobin 12.8 Hematocrit 37.7 Mean Corpuscular Volume 85.2 Mean Corpuscular Hemoglobin 29.0 Mean Corpuscular Hemoglobin Concent 34.0 Red Cell Distribution Width 14.8 Platelet Count 261 Mean Platelet Volume 7.5 Neutrophils (%) (Auto) 77.8 Lymphocytes (%) (Auto) 10.8 Monocytes (%) (Auto) 10.2 Eosinophils (%) (Auto) 0.8 Basophils (%) (Auto) 0.4 Neutrophils # (Auto) 6.4 Lymphocytes # (Auto) 0.9 Monocytes # (Auto) 0.8 Eosinophils # (Auto) 0.1 Basophils # (Auto) 0.0 CBC Comment DIFF FINAL Differential Comment Date/Time Source Procedure Growth Status 10/24/17 21:50 Blood Peripheral Aerobic Blood Culture - Preliminary NO GROWTH IN 1 DAY Resulted 10/24/17 21:50 Blood Peripheral Anaerobic Blood Culture - Preliminary NO GROWTH IN 1 DAY Resulted Result Diagram: 10/25/17 1141 10/24/17 0610 Imaging Last Impressions Soft Tissue Ultrasound 10/24/17 0000 Signed Impressions: Service Date/Time: Tuesday, October 24, 2017 11:23 - CONCLUSION: 1.6 cm cystic area in the superficial soft tissues of the lateral foot may represent hematoma or cyst. Aubrey Pihlippe MD Ankle X-Ray 10/24/17 0000 Signed Impressions: Service Date/Time: Tuesday, October 24, 2017 16:12 - CONCLUSION: 1. 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 2. No evidence of fracture. Aubrey Philippe MD Assessment and Plan Assessment and Plan Staph aureus bacteremia (has no port, PICC or e/o prior IV line site phlebitis etc) Right ankle hematoma with no effusion on Xray. Hematoma on outer aspect of right ankle likely infected and source of infection. Hemophilia Recs: No need for Clinda Continue Vanco IV pending identification of staph aureus in the blood Start Ancef IV for possible MSSA bacteremia Repeat blood cultures to be followed Discussed with Dr. Kera mckeon to perform surgery. When scheduled for surgery Dr. Kera varner give patient factor infusion. Follow cultures Follow clinically Discussed with patient as well as in the room Briseyda Alexander MD Oct 25, 2017 12:43
--- NOTE | 2017-10-25 13:17 | PD.ONC.PN ---
Subjective Subjective Remarks T-max 101.4 overnight Patient reports his pain is unchanged in his right ankle He is not having chills Denies shortness of breath or any other acute complaints Objective Data Date Time Temp Pulse Resp B/P (MAP) Pulse Ox O2 Delivery O2 Flow Rate FiO2 10/25/17 12:00 98.2 72 18 128/76 (93) 96 10/25/17 07:55 98.0 57 18 108/68 (81) 92 10/25/17 07:31 78 10/25/17 06:00 87 10/25/17 05:02 85 10/25/17 04:03 83 10/25/17 04:03 98.7 10/25/17 04:03 101.4 90 16 135/77 (96) 93 10/25/17 03:02 80 10/25/17 02:01 83 10/25/17 01:15 97.9 80 18 122/73 (89) 95 10/25/17 01:03 84 10/24/17 22:04 18 10/24/17 20:54 99.1 91 18 116/71 (86) 95 10/24/17 15:03 98.3 92 18 130/74 (92) 95 10/24/17 15:00 97 10/25/17 10/25/17 10/25/17 07:00 15:00 23:00 Intake Total 1045 ml Output Total 300 ml Balance 745 ml Result Diagram: 10/25/17 1141 10/24/17 0610 Laboratory Results Laboratory Tests Test 10/24/17 18:16 10/25/17 11:41 White Blood Count 8.2 TH/MM3 Red Blood Count 4.42 MIL/MM3 Hemoglobin 12.8 GM/DL Hematocrit 37.7 % Mean Corpuscular Volume 85.2 FL Mean Corpuscular Hemoglobin 29.0 PG Mean Corpuscular Hemoglobin Concent 34.0 % Red Cell Distribution Width 14.8 % Platelet Count 261 TH/MM3 Mean Platelet Volume 7.5 FL Neutrophils (%) (Auto) 77.8 % Lymphocytes (%) (Auto) 10.8 % Monocytes (%) (Auto) 10.2 % Eosinophils (%) (Auto) 0.8 % Basophils (%) (Auto) 0.4 % Neutrophils # (Auto) 6.4 TH/MM3 Lymphocytes # (Auto) 0.9 TH/MM3 Monocytes # (Auto) 0.8 TH/MM3 Eosinophils # (Auto) 0.1 TH/MM3 Basophils # (Auto) 0.0 TH/MM3 CBC Comment DIFF FINAL Differential Comment Culture Results Microbiology Date/Time Source Procedure Growth Status 10/24/17 21:50 Blood Peripheral Aerobic Blood Culture - Preliminary NO GROWTH IN 1 DAY Resulted 10/24/17 21:50 Blood Peripheral Anaerobic Blood Culture - Preliminary NO GROWTH IN 1 DAY Resulted 10/24/17 21:45 Blood Peripheral Aerobic Blood Culture - Preliminary NO GROWTH IN 1 DAY Resulted 10/24/17 21:45 Blood Peripheral Anaerobic Blood Culture - Preliminary NO GROWTH IN 1 DAY Resulted 10/23/17 19:35 Blood Peripheral Aerobic Blood Culture - Preliminary NO GROWTH IN 2 DAYS Resulted 10/23/17 19:35 Anaerobic Blood Culture - Preliminary Staphylococcus Aureus Resulted 10/23/17 19:30 Blood Peripheral Aerobic Blood Culture - Preliminary NO GROWTH IN 2 DAYS Resulted 10/23/17 19:30 Anaerobic Blood Culture - Final Staphylococcus Aureus Resulted Administered Medications Medications (Trade) Dose Ordered Sig/Joi Route PRN Reason Start Time Stop Time Status Last Admin Dose Admin Sodium Chloride 1,000 ml @ 100 mls/hr Q10H IV 10/23/17 20:00 10/25/17 05:32 Sodium Chloride (NS Flush) 2 ml BID IV FLUSH 10/23/17 21:00 10/24/17 09:17 Acetaminophen (Tylenol) 650 mg Q4H PRN PO TEMP > 100.4 10/23/17 20:00 10/25/17 05:30 Amlodipine Besylate (Norvasc) 5 mg DAILY PO 10/24/17 09:00 10/24/17 09:17 Atorvastatin Calcium (Lipitor) 40 mg DAILY PO 10/24/17 09:00 10/25/17 08:59 Acetaminophen/ Hydrocodone Bitart ([place] 5-325 Mg) 1 tab Q4H PRN PO PAIN SCALE 3 TO 5 10/23/17 20:15 10/25/17 05:29 Methylprednisolone (Medrol) 4 mg DAILY PO 10/24/17 09:00 10/25/17 08:59 Morphine Sulfate (Morphine Inj) 2 mg Q3H PRN IV PAIN SCALE 6 TO 10 10/23/17 21:30 10/24/17 04:51 Vancomycin HCl 1750 mg/Sodium Chloride 517.5 ml @ 250 mls/hr Q12H IV 10/25/17 06:00 10/25/17 05:31 Objective Remarks GENERAL: Older male, resting in bed in no obvious distress. SKIN: Warm and dry. HEAD: Normocephalic. EYES: No injection or drainage. NECK: Supple, trachea midline. CARDIOVASCULAR: Regular rate and rhythm without murmurs. RESPIRATORY: Clear anteriorly. Breathing unlabored at rest. GASTROINTESTINAL: Abdomen soft, non-tender, nondistended. EXTREMITIES: No cyanosis. Right ankle is edematous and erythematous laterally. MUSCULOSKELETAL: Adequate muscle tone. NEUROLOGICAL: No obvious focal deficit. Awake, alert, and oriented x3. Assessment/Plan Problem List: (1) Hemophilia B ICD Codes: D67 - Hereditary factor IX deficiency Plan: --Patient is status post 2 doses of BeneFIX --Factor IX levels drawn just prior to second dose of BeneFIX; pending --Plan for long-acting factor IX treatment once discharged --CBC stable (2) Right ankle swelling ICD Codes: M25.471 - Effusion, right ankle Status: Acute Plan: --Patient was hemophilia B admitted with bleed in his right ankle --Reports the swelling began after he hit his foot on a recliner at home --Appears to have cellulitis in this ankle; blood cultures positive for Staphylococcus aureus --Infectious disease following Assessment 67 y/o male with hemophilia B admitted for right ankle swelling Plan 1. Monitor results of factor IX level 2. Monitor CBC Attending Statement The exam, history, and the medical decision-making described in the above note were completed with the assistance of the mid-level provider. I reviewed and agree with the findings presented. I attest that I had a [id number] encounter with the patient on the same day, and personally performed and documented my assessment and findings in the medical record. Pt seen and examined. Noted well demarcated area of redness R lateral malleolus. Feels better, but blames current symptoms to infection. Noted podiatry recommendation for conservative, non invasive management. Discussed with yoan BARROW for aspiration of ankle by IR, factor IX prophylaxis could be administered. No factor IX treatment today. Pt has baseline Factor IX 11%, acute bleed improved with two doses calculated correcting him to 100%. Rama Boo [facility] Oct 25, 2017 13:17 Kavita Cote MD Oct 25, 2017 19:05
--- NOTE | 2017-10-25 13:51 | HHI.PR ---
Subjective Remarks c/o right ankle pain. Denies cp/sob had a fever earlier with a Tmax of 101.4F Objective Vitals Vital Signs Date Time Temp Pulse Resp B/P (MAP) Pulse Ox O2 Delivery O2 Flow Rate FiO2 10/25/17 12:00 98.2 72 18 128/76 (93) 96 10/25/17 07:55 98.0 57 18 108/68 (81) 92 10/25/17 07:31 78 10/25/17 06:00 87 10/25/17 05:02 85 10/25/17 04:03 83 10/25/17 04:03 98.7 10/25/17 04:03 101.4 90 16 135/77 (96) 93 10/25/17 03:02 80 10/25/17 02:01 83 10/25/17 01:15 97.9 80 18 122/73 (89) 95 10/25/17 01:03 84 10/24/17 22:04 18 10/24/17 20:54 99.1 91 18 116/71 (86) 95 10/24/17 15:03 98.3 92 18 130/74 (92) 95 10/24/17 15:00 97 I/O 10/24/17 10/24/17 10/24/17 10/25/17 10/25/17 10/25/17 07:00 15:00 23:00 07:00 15:00 23:00 Intake Total 1370 ml 1045 ml Output Total 400 ml 300 ml Balance 1370 ml -400 ml 745 ml Intake Oral 620 ml 480 ml IV Total 750 ml 565 ml Output Urine Total 400 ml 300 ml # Voids 2 1 # Bowel Movements 1 Result Diagram: 10/25/17 1141 10/24/17 0610 Imaging Last Impressions Soft Tissue Ultrasound 10/24/17 0000 Signed Impressions: Service Date/Time: Tuesday, October 24, 2017 11:23 - CONCLUSION: 1.6 cm cystic area in the superficial soft tissues of the lateral foot may represent hematoma or cyst. Aubrey Philippe MD Ankle X-Ray 10/24/17 0000 Signed Impressions: Service Date/Time: Tuesday, October 24, 2017 16:12 - CONCLUSION: 1. 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 2. No evidence of fracture. Aubrey Philippe MD Objective Remarks AAOx3 nad PERRLA Clear lungs BL S1S2 + RRR, no MRG abdomen is soft, nt, nd Swollen and erythematous right foot/ankle that is mildly warm to touch. Exquisitely tender to palpation. No induration or fluctuance. Neurovascularly intact. Distal pulses 2+. Medications and IVs Current Medications Medications (Trade) Dose Ordered Sig/Joi Route Start Time Stop Time Status Last Admin Sodium Chloride 1,000 ml @ 100 mls/hr Q10H IV 10/23/17 20:00 10/25/17 05:32 (NS Flush) 2 ml UNSCH PRN IV FLUSH 10/23/17 20:00 (NS Flush) 2 ml BID IV FLUSH 10/23/17 21:00 10/24/17 09:17 (Tylenol) 650 mg Q4H PRN PO 10/23/17 20:00 10/25/17 05:30 (Zofran Inj) 4 mg Q6H PRN IVP 10/23/17 20:00 (Narcan Inj) 0.4 mg UNSCH PRN IV PUSH 10/23/17 20:00 (Milk Of Magnesia Liq) 30 ml Q12H PRN PO 10/23/17 20:00 (Senokot) 17.2 mg Q12H PRN PO 10/23/17 20:00 (Dulcolax Supp) 10 mg DAILY PRN RECTAL 10/23/17 20:00 (Lactulose Liq) 30 ml DAILY PRN PO 10/23/17 20:00 (Norvasc) 5 mg DAILY PO 10/24/17 09:00 10/24/17 09:17 (Lipitor) 40 mg DAILY PO 10/24/17 09:00 10/25/17 08:59 ([place] 5-325 Mg) 1 tab Q4H PRN PO 10/23/17 20:15 10/25/17 05:29 (Medrol) 4 mg DAILY PO 10/24/17 09:00 10/25/17 08:59 (Morphine Inj) 2 mg Q3H PRN IV 10/23/17 21:30 10/24/17 04:51 Pharmacy Profile Note 0 ml @ 0 mls/hr UNSCH OTHER 10/24/17 16:15 Miscellaneous Information SPECIFIC LAB TO BE JAN... 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 1. Hemophilia B Patient sustained trauma to his foot on and has had swelling since that time MRI right ankle 10/21 No definite fracture identified. 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 Hematology consulted, appreciate recommendations. Given Factor IX in the ED. Dr. Cote plans to give additional dose of BeneFIX and monitor patients response. Monitor closely for signs of bleeding 10/25 Patient likely developed hemarthrosis of the right ankle after trauma with subsequent bleeding and posterior infection. Fu hematology recommendations. 2. Infected hematoma/Hemarthrosis right ankle Immunocompromised on po steroids for right shoulder pain Patient with mild leukocytosis with left shift and warm right foot. White count now normal. Afebrile. lactic acid 1.7 Obtain CRP Joint effusion and tenosynovitis on previous MRI. No improvement this morning per patient report. Unable to bear weight. Consult podiatry, appreciate recommendations Obtain soft tissue US right ankle r/o underlying abscess Continue with PT 10/25 Antibiotics as per ID. Soft tissue US of right foot showed1.6 cm cystic area in the superficial soft tissues of the lateral foot may represent hematoma or cyst. Consult podiatry. 3. Coronary artery disease/hypertension/hyperlipidemia Continue home medications 5. Hyperglycemia/Prediabetes Hemoglobin A1c 6.2 Consult dietitian. Consider metformin upon dc. 6. Staph Aureus bacteremia ID consulted. recommendations appreciated. Antibiotics changed to Vancomycin and Cefazolin. Discussed with Dr Catherine CARMEN Diet heart healthy Electrolytes: monitor and replete prn No pharmacologic anticoagulation given factor IX deficiency and bleeding risk Discharge Planning Monitor in the medical floor. Problem Qualifiers (1) Leukocytosis: Qualified Codes: D72.829 - Elevated white blood cell count, unspecified Bobby Kraft MD Oct 25, 2017 13:51
[2017-10-25] MEDS: ceFAZolin 2 GM PREMIX 50 ML IV SCH ×2 (14:07→21:07)
[2017-10-25] MEDS: MORPHINE SULFATE 2 MG/ML SYRINGE IV PRN (21:07)
[2017-10-26] VITALS (7 sets, daily range): BP systolic 124–140; BP diastolic 76–87; PULSE 72–88; RESP 16–22; TEMP 97.7–98.5; O2SAT 94–97
[2017-10-26] MEDS ORDERED: PHARMACY ORDERED LAB ONE (05:45)
[2017-10-26] MEDS: ceFAZolin 2 GM PREMIX 50 ML IV SCH ×3 (05:57→22:05)
[2017-10-26 06:43] LABS: AUTOMATED NEUTROPHIL # 5.9 TH/MM3 (1.8-7.7); BASOPHIL % 0.5 % (0.0-2.0); EOSINOPHIL # 0.1 TH/MM3 (0-0.4); EOSINOPHIL % 1.4 % (0.0-4.0); HEMATOCRIT 39.1 % (39.0-51.0); HEMOGLOBIN 13.1 GM/DL (13.0-17.0); LYMPH % 14.4 % (9.0-44.0); LYMPHOCYTE # 1.1 TH/MM3 (1.0-4.8); MEAN CELL VOLUME 85.2 FL (80.0-100.0); MEAN CORPUSCULAR HEMOGLOBIN 28.5 PG (27.0-34.0); MEAN CORPUSCULAR HGB CONC 33.4 % (32.0-36.0); MEAN PLATELET VOLUME 7.2 FL (7.0-11.0); MONO % 9.1 % (0.0-8.0); MONOCYTE # 0.7 TH/MM3 (0-0.9); NEUT % 74.6 % (16.0-70.0); PLATELET COUNT 320 TH/MM3 (150-450); RED BLOOD COUNT 4.59 MIL/MM3 (4.50-5.90); RED CELL DISTRIBUTION WIDTH 14.8 % (11.6-17.2); WHITE BLOOD COUNT 7.9 TH/MM3 (4.0-11.0)
[2017-10-26] MEDS: ACETAMINOPHEN/HYDROcodone 325 MG/5 MG TAB PO PRN ×3 (06:47→20:05)
[2017-10-26] MEDS: VANCOMYCIN INJ 1,750 MG in SODIUM CHLORID 0.9% 500 ML INJ 500 ML IV SCH (06:47)
[2017-10-26 07:00] LABS: CREATININE 0.89 MG/DL (0.60-1.30)
[2017-10-26] MEDS: SODIUM CHLOR 0.9% 1000 ML INJ 1,000 ML IV SCH ×2 (08:00→20:06)
--- NOTE | 2017-10-26 08:10 | MB ---
cc: Victorina Landin DPM DATE: 10/25/2017 CHIEF COMPLAINT: Right ankle pain and swelling. HISTORY OF PRESENT ILLNESS: Mr. Henson is a 67-year-old male patient who has significant history for factor IX deficiency. He presented to the emergency department for evaluation of a right swollen ankle. The patient states that he has had multiple injuries to this ankle and has had multiple periods of pain throughout the last several decades, but this most recent issue occurred when he kicked to be recliner with his right foot on evening. It then began to swell and cause more increased pain to the right ankle. 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 The patient states that the pain has been improving since admission to the hospital. PAST MEDICAL HISTORY: Includes factor IX deficiency, hypertension, hyperlipidemia and coronary artery disease. PAST SURGICAL HISTORY: None. MEDICATIONS: Please see list. ALLERGIES: SULFA DRUGS. FAMILY HISTORY: Noncontributory. SOCIAL HISTORY: The patient drinks alcohol socially. Denies tobacco and illicit drug abuse. VITAL SIGNS: Temperature is 98.1, pulse 74, respiratory rate 18, blood pressure 127/79, pulse oximetry 97% O2 on room air. LABORATORY DATA: White count is 8.2, down from 13.7, hemoglobin 12.8, hematocrit 37.7, platelets 261. Coags: INR is 1.9. Chemistry: Sodium 138, potassium 3.8, chloride 104, carbon dioxide 24.5, BUN 24. A1c 6.1. C-reactive protein 25.1. Blood cultures are positive for Staphylococcus aureus on 10/23. Repeat blood cultures on 10/24 are pending. IMAGING: Ankle x-rays are negative for any fractures, dislocations. Severe osteoarthritis noted in the ankle joint and an increase in soft tissue edema noted. No gas in the soft tissues or signs of cortical erosion. Ultrasound was negative for any abnormalities. PHYSICAL EXAMINATION: The patient has palpable DP and PT pulses. He has capillary refill time of less than 3 seconds. Gross sensation is intact. The left lower extremity is unremarkable. The right ankle does show moderate edema with some erythema and signs of hematoma to the lateral aspect. The swelling is diffuse, but the erythema is localized to an approximately 7 cm x 7 cm area. ASSESSMENT AND PLAN: Right ankle infected hematoma with sepsis versus a septic joint. The patient's clinical evaluation is more consistent with an infected hematoma and a cellulitis. He has shown improvement since admission, both in his blood work as well as his physical findings. Hematoma is diffuse, along with the swelling, and not amenable to a surgical evacuation of the hematoma. If patient continues to have positive blood cultures, an ankle joint tap can be performed at bedside to further rule out a septic joint. If patient continues to progress well, but has difficulty ambulating, he may benefit from compression in a Cam walking boot with physical therapy. We will continue to monitor intermittently while in-house. SINAI Morrissey/JENNI , 06:18 PM , 06:38 PM
[2017-10-26] MEDS: SODIUM CHLORIDE 0.9% FLUSH 10 ML FLUSH IV FLUSH SCH ×2 (09:00→20:06)
--- NOTE | 2017-10-26 09:08 | PD.ONC.PN ---
Subjective Subjective Remarks Afebrile overnight. Patient resting in bed in nad. still having pain in right ankle. also has some pain in right shoulder denies cough or sore throat. Objective Data Date Time Temp Pulse Resp B/P (MAP) Pulse Ox O2 Delivery O2 Flow Rate FiO2 10/26/17 04:00 79 10/26/17 04:00 98.1 75 20 137/84 (101) 95 10/26/17 00:00 79 10/26/17 00:00 98.5 80 20 140/76 (97) 94 10/25/17 20:00 84 10/25/17 20:00 98.1 85 22 127/77 (94) 94 10/25/17 17:49 98.1 74 18 126/79 (95) 96 10/25/17 16:45 86 10/25/17 12:00 67 10/25/17 12:00 98.2 72 18 128/76 (93) 96 10/26/17 10/26/17 10/26/17 06:59 14:59 22:59 Intake Total 530 ml Output Total 1400 ml Balance -870 ml Result Diagram: 10/26/1762010/26/17620 Laboratory Results Laboratory Tests Test 10/25/17 11:41 10/26/17 06:21 White Blood Count 8.2 TH/MM3 7.9 TH/MM3 Red Blood Count 4.42 MIL/MM3 4.59 MIL/MM3 Hemoglobin 12.8 GM/DL 13.1 GM/DL Hematocrit 37.7 % 39.1 % Mean Corpuscular Volume 85.2 FL 85.2 FL Mean Corpuscular Hemoglobin 29.0 PG 28.5 PG Mean Corpuscular Hemoglobin Concent 34.0 % 33.4 % Red Cell Distribution Width 14.8 % 14.8 % Platelet Count 261 TH/MM3 320 TH/MM3 Mean Platelet Volume 7.5 FL 7.2 FL Neutrophils (%) (Auto) 77.8 % 74.6 % Lymphocytes (%) (Auto) 10.8 % 14.4 % Monocytes (%) (Auto) 10.2 % 9.1 % Eosinophils (%) (Auto) 0.8 % 1.4 % Basophils (%) (Auto) 0.4 % 0.5 % Neutrophils # (Auto) 6.4 TH/MM3 5.9 TH/MM3 Lymphocytes # (Auto) 0.9 TH/MM3 1.1 TH/MM3 Monocytes # (Auto) 0.8 TH/MM3 0.7 TH/MM3 Eosinophils # (Auto) 0.1 TH/MM3 0.1 TH/MM3 Basophils # (Auto) 0.0 TH/MM3 0.0 TH/MM3 CBC Comment DIFF FINAL DIFF FINAL Differential Comment Creatinine 0.89 MG/DL Estimat Glomerular Filtration Rate 85 ML/MIN Culture Results Microbiology Date/Time Source Procedure Growth Status 10/24/17 21:50 Blood Peripheral Aerobic Blood Culture - Preliminary NO GROWTH IN 1 DAY Resulted 10/24/17 21:50 Blood Peripheral Anaerobic Blood Culture - Preliminary NO GROWTH IN 1 DAY Resulted 10/24/17 21:45 Blood Peripheral Aerobic Blood Culture - Preliminary NO GROWTH IN 1 DAY Resulted 10/24/17 21:45 Blood Peripheral Anaerobic Blood Culture - Preliminary NO GROWTH IN 1 DAY Resulted 10/23/17 19:35 Blood Peripheral Aerobic Blood Culture - Preliminary NO GROWTH IN 2 DAYS Resulted 10/23/17 19:35 Anaerobic Blood Culture - Preliminary Staphylococcus Aureus Resulted 10/23/17 19:30 Blood Peripheral Aerobic Blood Culture - Preliminary NO GROWTH IN 2 DAYS Resulted 10/23/17 19:30 Anaerobic Blood Culture - Final Staphylococcus Aureus Resulted Administered Medications Medications (Trade) Dose Ordered Sig/Joi Route PRN Reason Start Time Stop Time Status Last Admin Dose Admin Sodium Chloride 1,000 ml @ 100 mls/hr Q10H IV 10/23/17 20:00 10/25/17 22:00 Sodium Chloride (NS Flush) 2 ml BID IV FLUSH 10/23/17 21:00 10/25/17 21:08 Acetaminophen (Tylenol) 650 mg Q4H PRN PO TEMP > 100.4 10/23/17 20:00 10/25/17 05:30 Amlodipine Besylate (Norvasc) 5 mg DAILY PO 10/24/17 09:00 10/24/17 09:17 Atorvastatin Calcium (Lipitor) 40 mg DAILY PO 10/24/17 09:00 10/25/17 08:59 Acetaminophen/ Hydrocodone Bitart ([place] 5-325 Mg) 1 tab Q4H PRN PO PAIN SCALE 3 TO 5 10/23/17 20:15 10/26/17 06:47 Methylprednisolone (Medrol) 4 mg DAILY PO 10/24/17 09:00 10/25/17 08:59 Morphine Sulfate (Morphine Inj) 2 mg Q3H PRN IV PAIN SCALE 6 TO 10 10/23/17 21:30 10/25/17 21:07 Vancomycin HCl 1750 mg/Sodium Chloride 517.5 ml @ 250 mls/hr Q12H IV 10/25/17 06:00 10/26/17 06:47 Cefazolin Sodium/ Dextrose 50 ml @ 100 mls/hr Q8H IV 10/25/17 14:00 10/26/17 05:57 Objective Remarks GENERAL: Middle aged male, sitting up in bed in nad. SKIN: Warm and dry. HEAD: Normocephalic. EYES: No injection or drainage. NECK: Supple, trachea midline. CARDIOVASCULAR: Regular rate and rhythm RESPIRATORY: Breath sounds equal bilaterally. No accessory muscle use. GASTROINTESTINAL: Abdomen soft, non-tender, nondistended. EXTREMITIES: No cyanosis. right ankle with erythema and swelling. NEUROLOGICAL: awake and alert. normal speech. moving extremities. Assessment/Plan Problem List: (1) Hemophilia B ICD Codes: D67 - Hereditary factor IX deficiency Plan: --Patient is status post 2 doses of BeneFIX --Factor IX levels drawn just prior to second dose of BeneFIX; pending --Plan for long-acting factor IX treatment once discharged --CBC stable (2) Right ankle swelling ICD Codes: M25.471 - Effusion, right ankle Status: Acute Plan: --Patient was hemophilia B admitted with bleed in his right ankle --Reports the swelling began after he hit his foot on a recliner at home --Appears to have cellulitis in this ankle; blood cultures positive for Staphylococcus aureus --Infectious disease following (3) Sepsis ICD Codes: A41.9 - Sepsis, unspecified organism Plan: ++BC for S. Aureus. Assessment 67 y/o male with hemophilia B admitted for right ankle swelling Plan 1. monitor CBC 2. continue antibiotics Attending Statement The exam, history, and the medical decision-making described in the above note were completed with the assistance of the mid-level provider. I reviewed and agree with the findings presented. I attest that I had a [id number] encounter with the patient on the same day, and personally performed and documented my assessment and findings in the medical record. Ankle continue to improve. 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 Cont Abx per ID. Yennifer Zhang Oct 26, 2017 09:08 Kavita Cote MD Oct 26, 2017 15:48
[2017-10-26] MEDS: ATORVASTATIN 40 MG TAB PO SCH (09:10)
[2017-10-26] MEDS: methylPREDNISolone 4 MG TAB PO SCH (09:10)
[2017-10-26] MEDS: amLODIPine BESYLATE 5 MG TAB PO SCH (09:11)
--- NOTE | 2017-10-26 10:19 | HHI.PR ---
Subjective Remarks Swelling in right ankle improving but still present. Pain in right ankle is controlled. Denies fevers or chills Denies diarrhea Denies cp/sob/cough Objective Vitals Vital Signs Date Time Temp Pulse Resp B/P (MAP) Pulse Ox O2 Delivery O2 Flow Rate FiO2 10/26/17 04:00 79 10/26/17 04:00 98.1 75 20 137/84 (101) 95 10/26/17 00:00 79 10/26/17 00:00 98.5 80 20 140/76 (97) 94 10/25/17 20:00 84 10/25/17 20:00 98.1 85 22 127/77 (94) 94 10/25/17 17:49 98.1 74 18 126/79 (95) 96 10/25/17 16:45 86 10/25/17 12:00 67 10/25/17 12:00 98.2 72 18 128/76 (93) 96 I/O 10/25/17 10/25/17 10/25/17 10/26/17 10/26/17 10/26/17 07:00 15:00 23:00 07:00 15:00 23:00 Intake Total 1045 ml 770 ml 530 ml Output Total 300 ml 1800 ml 1400 ml Balance 745 ml -1030 ml -870 ml Intake Oral 480 ml 720 ml 480 ml IV Total 565 ml 50 ml 50 ml Output Urine Total 300 ml 1800 ml 1400 ml # Voids 1 # Bowel Movements 1 Result Diagram: 10/26/17 0621 10/26/17 0621 Imaging Last Impressions Soft Tissue Ultrasound 10/24/17 0000 Signed Impressions: Service Date/Time: Tuesday, October 24, 2017 11:23 - CONCLUSION: 1.6 cm cystic area in the superficial soft tissues of the lateral foot may represent hematoma or cyst. Aubrey Philippe MD Ankle X-Ray 10/24/17 0000 Signed Impressions: Service Date/Time: Tuesday, October 24, 2017 16:12 - CONCLUSION: 1. 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 2. No evidence of fracture. Aubrey Philippe MD Objective Remarks AAOx3 nad PERRLA Clear lungs BL S1S2 + RRR, no MRG abdomen is soft, nt, nd Swollen and erythematous right foot/ankle that is mildly warm to touch. Tender to palpation. No induration or fluctuance. Neurovascularly intact. Distal pulses 2+. Procedures none Medications and IVs Current Medications Medications (Trade) Dose Ordered Sig/Joi Route Start Time Stop Time Status Last Admin Sodium Chloride 1,000 ml @ 100 mls/hr Q10H IV 10/23/17 20:00 10/25/17 22:00 (NS Flush) 2 ml UNSCH PRN IV FLUSH 10/23/17 20:00 (NS Flush) 2 ml BID IV FLUSH 10/23/17 21:00 10/26/17 09:00 (Tylenol) 650 mg Q4H PRN PO 10/23/17 20:00 10/25/17 05:30 (Zofran Inj) 4 mg Q6H PRN IVP 10/23/17 20:00 (Narcan Inj) 0.4 mg UNSCH PRN IV PUSH 10/23/17 20:00 (Milk Of Magnesia Liq) 30 ml Q12H PRN PO 10/23/17 20:00 (Senokot) 17.2 mg Q12H PRN PO 10/23/17 20:00 (Dulcolax Supp) 10 mg DAILY PRN RECTAL 10/23/17 20:00 (Lactulose Liq) 30 ml DAILY PRN PO 10/23/17 20:00 (Norvasc) 5 mg DAILY PO 10/24/17 09:00 10/26/17 09:11 (Lipitor) 40 mg DAILY PO 10/24/17 09:00 10/26/17 09:10 ([place] 5-325 Mg) 1 tab Q4H PRN PO 10/23/17 20:15 10/26/17 06:47 (Medrol) 4 mg DAILY PO 10/24/17 09:00 10/26/17 09:10 (Morphine Inj) 2 mg Q3H PRN IV 10/23/17 21:30 10/25/17 21:07 Pharmacy Profile Note 0 ml @ 0 mls/hr UNSCH OTHER 10/24/17 16:15 Vancomycin HCl 1750 mg/Sodium Chloride 517.5 ml @ 250 mls/hr Q12H IV 10/25/17 06:00 10/26/17 06:47 Cefazolin Sodium/ Dextrose 50 ml @ 100 mls/hr Q8H IV 10/25/17 14:00 4/26/18 05:57 A/P Problem List: (1) Right ankle swelling ICD Code: M25.471 - Effusion, right ankle Status: Acute (2) Staphylococcus aureus bacteremia ICD Code: R78.81 - Bacteremia (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 1. Hemophilia B Factor IX deficiency. Patient sustained trauma to his foot on and has had swelling since that time MRI right ankle 10/21 No definite fracture identified. 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 Hematology consulted, appreciate recommendations. Given Factor IX in the ED. Dr. Cote plans to give additional dose of BeneFIX and monitor patients response. Monitor closely for signs of bleeding Patient likely developed hemarthrosis of the right ankle after trauma with subsequent bleeding and posterior infection. Fu hematology recommendations. 2. Infected hematoma Hemarthrosis right ankle Immunocompromised on po steroids for right shoulder pain. The patient presented with leukocytosis with left shift and warm right foot as well as less tender. Normal lactic acid. CRP elevated. Soft tissue ultrasound of the right ankle was obtained and shows a 1.6 cm cystic area in the superficial soft tissues of the lateral foot. ID consulted. Antibiotics managed per ID. The patient currently on IV cefazolin and vancomycin. Podiatry consulted. Dr. Landin did not recommended any surgical intervention. Continue antibiotics as per ID. 3. Coronary artery disease hypertension hyperlipidemia Blood pressure stable. Continue home antihypertensive medications-patient on amlodipine. 4. Hyperglycemia Prediabetes Hemoglobin A1c 6.2 Consult dietitian. Consider metformin upon dc. 6. Staph Aureus bacteremia ID consulted. recommendations appreciated. Antibiotics changed to Vancomycin and Cefazolin. Discussed with Dr Alexander Repeat blood cultures negative 1. FEN Diet heart healthy Electrolytes: monitor and replete prn No pharmacologic anticoagulation given factor IX deficiency and bleeding risk Discharge Planning Monitor in the medical floor. Needs ID clearance. Problem Qualifiers (1) Leukocytosis: Qualified Codes: D72.829 - Elevated white blood cell count, unspecified Bobby Kraft MD Oct 26, 2017 10:19
[2017-10-26] MEDS ORDERED: VANCOMYCIN INJ 2,000 MG in SODIUM CHLORID 0.9% 500 ML INJ 500 ML IV SCH (18:00)
[2017-10-26] MEDS ORDERED: GADODIAMIDE PF 287 MG/ML 5 ML VIAL (for RAD MRI) IVCONTRAST ONE (18:58)
--- NOTE | 2017-10-26 19:20 | RADRPT ---
EXAM DATE/TIME: 10/26/2017 18:40 [facility] COMPARISON: MRI ANKLE RIGHT W/O CONTRAST, October 21, 2017, 13:54. INDICATIONS : Osteomyelitis. Right ankle swelling around entire ankle for more then one week. CONTRAST: 21 cc Omniscan (gadodiamide) IV MEDICAL HISTORY : Hemophilia, Right kidney cyst. SURGICAL HISTORY : None. ENCOUNTER: Initial ACUITY: 1 day PAIN SCORE: 6/10 LOCATION: Right ankle TECHNIQUE: Multiplanar, multisequence MRI examination was performed without contrast and after the intravenous a dministration of gadolinium. FINDINGS: Severe, chronic caudal loss with bony remodeling seen in the ankle, both tibiotalar and fibulotalar c omponents. There is an associated large effusion and moderate synovitis. There are chronic appearing erosive changes of the distal fibula. There is associated marrow edema and decreased T1 signal in the subchondral regions, most likely reactive. Similar but slightly less severe changes are seen of the subtalar joint. Moderate osteoarthritis with reactive appearing subchondral marrow edema seen at the calcaneocuboid j oint. Mild distal Achilles peritendinitis without tear. There is an enthesophyte at the insertion and small moderate fluid in the retrocalcaneal bursa. There is small moderate fluid of tibialis posterior tendon medially and both peroneal tendons lateral ly. No tendon tears are demonstrated. There is reactive appearing bony and synovial enhancement. CONCLUSION: Severe arthropathy of the ankle and subtalar joints with associated subchondral marrow edema and eros erika changes. These findings are nonspecific, with infectious and inflammatory arthropathy both in the differential. Joint fluid aspiration may be helpful in ascertaining the correct diagnosis. If the an kle or subtalar joints are fairly infected, than the bony signal changes would be of concern for asso ciated osteomyelitis. Jose Bernal MD on October 26, 2017 at 19:12 Board Certified Radiologist. This report was verified electronically.
--- NOTE | 2017-10-26 21:48 | HHI.IDPN ---
Subjective Subjective Remarks Mr. 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 Remberto Baker is now retired. Patient subsequently did not seek any medical attention until more recently when he saw Dr. Cote during hospital admission. He has not had a chance to follow up outpatient yet. Per review of notes it appears that his documented factor IX activity level is around 11%. Patient reports he has not had any problems so did not see statuary painter as outpatient since retired. He was seen in consultation on 09/27/2017 where he presented with chest pain and seen by Cardiology. He was treated conservatively for atypical chest pain. Patient reports that it hurt his shoulder and subsequently he his right ankle. The shoulder pain was treated conservatively. On October 20, 2017 patient presented to the emergency room when his right ankle started swelling up. He reports that he may have kicked a recliner that led to the swelling of his right ankle. Due to progressive worsening of swelling and pain he decided to come to the emergency department. Patient received a dose of the clotting factor as well as benefits 2000 units along with pain medications but since there was no relief he came back to the hospital. Subsequently patient was seen in the hematology clinic for an unscheduled OB visit. Patient did not have clearance from his insurance company to allow factor administration in the clinic. Due to worsening symptoms in the right ankle he was sent to the emergency department from the hematology clinic. Patient reports that since his antibiotics were started he feels a little better. His is in the room and reports that patient appears to be confused and is not at baseline mentally in terms of clarity of thinking. Sepsis workup was initiated blood cultures grew staph aureus very gene identification is possible methicillin sensitive staph aureus final identification pending. Infectious disease is consulted for evaluation and management of MSSA bacteremia in a hemophilia patient. Overnight events reviewed No fevers No rash No diarrhea BCX 2nd set with GPC. Reviewed Podiatry note. Antibiotics Ancef IV Lines Line sites with no e.o infection Past Medical History Past Medical History Hemophilia B baseline activity level 11%, right ankle hemophiliac arthropathy, atypical chest pain. Past Surgical History Tooth extraction, Mohs surgery. Allergies: Coded Allergies: Sulfa (Sulfonamide Antibiotics) (Verified Allergy, Severe, RASH, 10/20/17) Objective . Vital Signs Date Time Temp Pulse Resp B/P (MAP) Pulse Ox O2 Delivery O2 Flow Rate FiO2 10/26/17 19:30 97.8 88 18 134/78 (96) 96 10/26/17 16:00 80 10/26/17 12:00 72 10/26/17 11:57 97.7 77 16 124/87 (99) 96 10/26/17 04:00 79 10/26/17 04:00 98.1 75 20 137/84 (101) 95 10/26/17 00:00 79 10/26/17 00:00 98.5 80 20 140/76 (97) 94 10/26/17 10/26/17 10/27/17 15:00 23:00 07:00 Output Total 200 ml Balance -200 ml Output Urine Total 200 ml . Laboratory Tests Test 10/25/17 11:41 10/26/17 06:21 White Blood Count 8.2 TH/MM3 7.9 TH/MM3 Red Blood Count 4.42 MIL/MM3 4.59 MIL/MM3 Hemoglobin 12.8 GM/DL 13.1 GM/DL Hematocrit 37.7 % 39.1 % Mean Corpuscular Volume 85.2 FL 85.2 FL Mean Corpuscular Hemoglobin 29.0 PG 28.5 PG Mean Corpuscular Hemoglobin Concent 34.0 % 33.4 % Red Cell Distribution Width 14.8 % 14.8 % Platelet Count 261 TH/MM3 320 TH/MM3 Mean Platelet Volume 7.5 FL 7.2 FL Neutrophils (%) (Auto) 77.8 % 74.6 % Lymphocytes (%) (Auto) 10.8 % 14.4 % Monocytes (%) (Auto) 10.2 % 9.1 % Eosinophils (%) (Auto) 0.8 % 1.4 % Basophils (%) (Auto) 0.4 % 0.5 % Neutrophils # (Auto) 6.4 TH/MM3 5.9 TH/MM3 Lymphocytes # (Auto) 0.9 TH/MM3 1.1 TH/MM3 Monocytes # (Auto) 0.8 TH/MM3 0.7 TH/MM3 Eosinophils # (Auto) 0.1 TH/MM3 0.1 TH/MM3 Basophils # (Auto) 0.0 TH/MM3 0.0 TH/MM3 CBC Comment DIFF FINAL DIFF FINAL Differential Comment Laboratory Tests Test 10/26/17 06:21 Creatinine 0.89 MG/DL Estimat Glomerular Filtration Rate 85 ML/MIN Microbiology Date/Time Source Procedure Growth Status 10/26/17 15:00 Blood Peripheral Aerobic Blood Culture Pending Received 10/26/17 15:00 Blood Peripheral Anaerobic Blood Culture Pending Received 10/26/17 14:55 Blood Peripheral Aerobic Blood Culture Pending Received 10/26/17 14:55 Blood Peripheral Anaerobic Blood Culture Pending Received 10/24/17 21:50 Blood Peripheral Aerobic Blood Culture - Preliminary NO GROWTH IN 2 DAYS Resulted 10/24/17 21:50 Blood Peripheral Anaerobic Blood Culture - Preliminary NO GROWTH IN 2 DAYS Resulted 10/24/17 21:45 Blood Peripheral Aerobic Blood Culture - Preliminary Gram Positive Cocci Resulted 10/24/17 21:45 Blood Peripheral Anaerobic Blood Culture - Preliminary NO GROWTH IN 2 DAYS Resulted Imaging Last Impressions Ankle MRI 10/26/17 0000 Signed Impressions: Service Date/Time: October 18:40 - CONCLUSION: Severe arthropathy of the ankle and subtalar joints with associated subchondral marrow edema and erosive changes. These findings are nonspecific, with infectious and inflammatory arthropathy both in the differential. Joint fluid aspiration may be helpful in ascertaining the correct diagnosis. If the ankle or subtalar joints are fairly infected, than the bony signal changes would be of concern for associated osteomyelitis. Jose Bernal MD Soft Tissue Ultrasound 10/24/17 0000 Signed Impressions: Service Date/Time: Tuesday, October 24, 2017 11:23 - CONCLUSION: 1.6 cm cystic area in the superficial soft tissues of the lateral foot may represent hematoma or cyst. Aubrey Philippe MD Ankle X-Ray 10/24/17 0000 Signed Impressions: Service Date/Time: Tuesday, October 24, 2017 16:12 - CONCLUSION: 1. 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 2. No evidence of fracture. Aubrey Philippe MD Physical Exam GENERAL: This is a well-nourished, well-developed patient, in no apparent distress. SKIN: No rashes, ecchymoses or lesions. Cool and dry. HEAD: Atraumatic. Normocephalic. No temporal or scalp tenderness. EYES: Pupils equal round and reactive. No scleral icterus. No injection or drainage. ENT: Nose without bleeding, purulent drainage or septal hematoma. Throat without erythema, tonsillar hypertrophy or exudate. Uvula midline. Airway patent. NECK: Trachea midline. Supple, nontender, no meningeal signs. CARDIOVASCULAR: HS audible. RESPIRATORY: Clear to auscultation. Breath sounds equal bilaterally. GASTROINTESTINAL: Abdomen soft, non-tender, nondistended. MUSCULOSKELETAL: Right LE outer aspect with erythema noted, induration and tenderness with decreased ROM. Slight decrease in erythema but overall still concerning for infected joint underlying osteomyelitis. NEUROLOGICAL: Awake and alert. oriented.Non focal exam. Psych cooperative IV line sites with no e.o infection. Assessment & Plan Remarks Staph aureus bacteremia (has no port, PICC or e/o prior IV line site phlebitis etc) Right ankle hematoma with no effusion on Xray. Hematoma on outer aspect of right ankle likely infected and source of infection. Hemophilia Recs: DC Vanco IV Continue Ancef IV for MSSA bacteremia Repeat blood cultures to be followed Dw : agreed to MRI ankle joint. If bony changes or effusion will consider joint aspiration. Please call her with results. Discussed with Dr. Kera mckeon to perform surgery or joint aspiration. When scheduled for surgery Dr. Cote she will give patient factor infusion. Follow cultures Follow clinically Discussed with patient. covering for ak 10/27/17 to 10/29/2017. Briseyda Alexander MD Oct 26, 2017 21:48
[2017-10-27] VITALS (9 sets, daily range): BP systolic 108–143; BP diastolic 70–85; PULSE 71–83; RESP 16–22; TEMP 97.5–98.3; O2SAT 96–97
[2017-10-27] MEDS: ACETAMINOPHEN/HYDROcodone 325 MG/5 MG TAB PO PRN ×2 (02:30→08:01)
[2017-10-27] MEDS: SODIUM CHLOR 0.9% 1000 ML INJ 1,000 ML IV SCH ×2 (05:04→15:37)
[2017-10-27] MEDS: ceFAZolin 2 GM PREMIX 50 ML IV SCH ×3 (05:04→20:56)
[2017-10-27] MEDS: methylPREDNISolone 4 MG TAB PO SCH (07:59)
[2017-10-27] MEDS: ATORVASTATIN 40 MG TAB PO SCH (08:00)
[2017-10-27] MEDS: amLODIPine BESYLATE 5 MG TAB PO SCH (08:01)
[2017-10-27] MEDS: SODIUM CHLORIDE 0.9% FLUSH 10 ML FLUSH IV FLUSH SCH ×2 (08:07→20:56)
--- NOTE | 2017-10-27 09:29 | PD.ONC.PN ---
Subjective Subjective Remarks Afebrile overnight. patient resting in bed in nad. Pain in ankle was improving, but during MRI it became stiff again after having to keep it still for some time. hoping to go home soon. Objective Data Date Time Temp Pulse Resp B/P (MAP) Pulse Ox O2 Delivery O2 Flow Rate FiO2 10/27/17 04:00 80 10/27/17 04:00 97.9 77 20 129/85 (100) 97 10/27/17 00:00 98.3 80 22 143/82 (102) 96 10/27/17 00:00 75 10/26/17 20:00 97.7 78 22 140/82 (101) 97 10/26/17 20:00 77 10/26/17 19:30 97.8 88 18 134/78 (96) 96 10/26/17 16:00 80 10/26/17 12:00 72 10/26/17 11:57 97.7 77 16 124/87 (99) 96 10/27/17 10/27/17 10/27/17 07:00 15:00 23:00 Output Total 2000 ml Balance -2000 ml Result Diagram: 10/26/17 0621 10/26/17 0621 Culture Results Microbiology Date/Time Source Procedure Growth Status 10/26/17 15:00 Blood Peripheral Aerobic Blood Culture Pending Received 10/26/17 15:00 Blood Peripheral Anaerobic Blood Culture Pending Received 10/26/17 14:55 Blood Peripheral Aerobic Blood Culture Pending Received 10/26/17 14:55 Blood Peripheral Anaerobic Blood Culture Pending Received 10/24/17 21:50 Blood Peripheral Aerobic Blood Culture - Preliminary NO GROWTH IN 2 DAYS Resulted 10/24/17 21:50 Blood Peripheral Anaerobic Blood Culture - Preliminary NO GROWTH IN 2 DAYS Resulted 10/24/17 21:45 Blood Peripheral Aerobic Blood Culture - Preliminary Gram Positive Cocci Resulted 10/24/17 21:45 Blood Peripheral Anaerobic Blood Culture - Preliminary NO GROWTH IN 2 DAYS Resulted Administered Medications Medications (Trade) Dose Ordered Sig/Joi Route PRN Reason Start Time Stop Time Status Last Admin Dose Admin Sodium Chloride 1,000 ml @ 100 mls/hr Q10H IV 10/23/17 20:00 10/27/17 05:04 Sodium Chloride (NS Flush) 2 ml BID IV FLUSH 10/23/17 21:00 10/26/17 20:06 Acetaminophen (Tylenol) 650 mg Q4H PRN PO TEMP > 100.4 10/23/17 20:00 10/25/17 05:30 Amlodipine Besylate (Norvasc) 5 mg DAILY PO 10/24/17 09:00 10/27/17 08:01 Atorvastatin Calcium (Lipitor) 40 mg DAILY PO 10/24/17 09:00 10/27/17 08:00 Acetaminophen/ Hydrocodone Bitart ([place] 5-325 Mg) 1 tab Q4H PRN PO PAIN SCALE 3 TO 5 10/23/17 20:15 10/27/17 08:01 Methylprednisolone (Medrol) 4 mg DAILY PO 10/24/17 09:00 10/27/17 07:59 Morphine Sulfate (Morphine Inj) 2 mg Q3H PRN IV PAIN SCALE 6 TO 10 10/23/17 21:30 10/25/17 21:07 Cefazolin Sodium/ Dextrose 50 ml @ 100 mls/hr Q8H IV 10/25/17 14:00 10/27/17 05:04 Objective Remarks GENERAL: Middle aged male, upright in bed SKIN: Warm and dry. HEAD: Normocephalic. EYES: No injection or drainage. NECK: Supple, trachea midline. CARDIOVASCULAR: Regular rate and rhythm RESPIRATORY: Breath sounds equal bilaterally. No accessory muscle use. GASTROINTESTINAL: Abdomen soft, non-tender, nondistended. EXTREMITIES: No cyanosis. right ankle with improved swelling very minimal erythema. NEUROLOGICAL: awake, alert. normal speech. 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 Aureus. Assessment 67 y/o male with hemophilia B admitted for right ankle swelling Plan 1. patient can be discharged when cleared by ID and hospitalist 2. monitor CBC. Attending Statement The exam, history, and the medical decision-making described in the above note were completed with the assistance of the mid-level provider. I reviewed and agree with the findings presented. I attest that I had a [id number] encounter with the patient on the same day, and personally performed and documented my assessment and findings in the medical record. No trauma but pt was walking/sitting up more. After three days of improvement of redness and swelling without factor infusion , today pt swelling and redness worsen. Seen by Dr. Hernandez, who coordinated aspiration of joint by IR. Discussed w/ Dr. Brady, prophylactic factor infusion given, no acute bleed, pt tolerated procedure will. MOnitor tomorrow to see if additional factors needed. Follow culture results as cellulitis clinically worsen today. Yennifer Zhang Oct 27, 2017 09:28 Kavita Cote MD Oct 27, 2017 19:12
--- NOTE | 2017-10-27 16:43 | PD.POD ---
Subjective Pain score: 3 Remarks Right ankle is improving. Past Med/Surg/Social History Social History Smoking Status: Never Smoker Objective Vital Signs Vital Signs Date Time Temp Pulse Resp B/P (MAP) Pulse Ox O2 Delivery O2 Flow Rate FiO2 10/27/17 11:13 97.6 78 16 108/77 (87) 96 10/27/17 10:09 97.9 77 16 121/76 (91) 96 10/27/17 08:00 71 10/27/17 04:00 80 10/27/17 04:00 97.9 77 20 129/85 (100) 97 10/27/17 00:00 98.3 80 22 143/82 (102) 96 10/27/17 00:00 75 10/26/17 20:00 97.7 78 22 140/82 (101) 97 10/26/17 20:00 77 10/26/17 19:30 97.8 88 18 134/78 (96) 96 Coded Allergies: Sulfa (Sulfonamide Antibiotics) (Verified Allergy, Severe, RASH, 10/20/17) Medications and IVs Administered Medications Medications (Trade) Dose Ordered Sig/Joi Route PRN Reason Start Time Stop Time Status Last Admin Dose Admin Sodium Chloride 1,000 ml @ 100 mls/hr Q10H IV 10/23/17 20:00 10/27/17 15:37 Sodium Chloride (NS Flush) 2 ml BID IV FLUSH 10/23/17 21:00 10/26/17 20:06 Acetaminophen (Tylenol) 650 mg Q4H PRN PO TEMP > 100.4 10/23/17 20:00 10/25/17 05:30 Amlodipine Besylate (Norvasc) 5 mg DAILY PO 10/24/17 09:00 10/27/17 08:01 Atorvastatin Calcium (Lipitor) 40 mg DAILY PO 10/24/17 09:00 10/27/17 08:00 Acetaminophen/ Hydrocodone Bitart ([place] 5-325 Mg) 1 tab Q4H PRN PO PAIN SCALE 3 TO 5 10/23/17 20:15 10/27/17 08:01 Methylprednisolone (Medrol) 4 mg DAILY PO 10/24/17 09:00 10/27/17 07:59 Morphine Sulfate (Morphine Inj) 2 mg Q3H PRN IV PAIN SCALE 6 TO 10 10/23/17 21:30 10/25/17 21:07 Cefazolin Sodium/ Dextrose 50 ml @ 100 mls/hr Q8H IV 10/25/17 14:00 10/27/17 15:37 Other Results Laboratory Tests Test 10/26/17 06:21 White Blood Count 7.9 TH/MM3 Red Blood Count 4.59 MIL/MM3 Hemoglobin 13.1 GM/DL Hematocrit 39.1 % Mean Corpuscular Volume 85.2 FL Mean Corpuscular Hemoglobin 28.5 PG Mean Corpuscular Hemoglobin Concent 33.4 % Red Cell Distribution Width 14.8 % Platelet Count 320 TH/MM3 Mean Platelet Volume 7.2 FL Neutrophils (%) (Auto) 74.6 % Lymphocytes (%) (Auto) 14.4 % Monocytes (%) (Auto) 9.1 % Eosinophils (%) (Auto) 1.4 % Basophils (%) (Auto) 0.5 % Neutrophils # (Auto) 5.9 TH/MM3 Lymphocytes # (Auto) 1.1 TH/MM3 Monocytes # (Auto) 0.7 TH/MM3 Eosinophils # (Auto) 0.1 TH/MM3 Basophils # (Auto) 0.0 TH/MM3 CBC Comment DIFF FINAL Differential Comment Laboratory Tests Test 10/26/17 06:21 Creatinine 0.89 MG/DL Estimat Glomerular Filtration Rate 85 ML/MIN Microbiology Date/Time Source Procedure Growth Status 10/26/17 15:00 Blood Peripheral Aerobic Blood Culture - Preliminary NO GROWTH IN 1 DAY Resulted 10/26/17 15:00 Blood Peripheral Anaerobic Blood Culture - Preliminary NO GROWTH IN 1 DAY Resulted 10/26/17 14:55 Blood Peripheral Aerobic Blood Culture - Preliminary NO GROWTH IN 1 DAY Resulted 10/26/17 14:55 Blood Peripheral Anaerobic Blood Culture - Preliminary NO GROWTH IN 1 DAY Resulted 10/24/17 21:50 Blood Peripheral Aerobic Blood Culture - Preliminary NO GROWTH IN 3 DAYS Resulted 10/24/17 21:50 Blood Peripheral Anaerobic Blood Culture - Preliminary NO GROWTH IN 3 DAYS Resulted 10/24/17 21:45 Blood Peripheral Aerobic Blood Culture - Final Staphylococcus Aureus Resulted 10/24/17 21:45 Blood Peripheral Anaerobic Blood Culture - Preliminary NO GROWTH IN 3 DAYS Resulted Laboratory Tests Test 10/26/17 06:21 White Blood Count 7.9 TH/MM3 Red Blood Count 4.59 MIL/MM3 Hemoglobin 13.1 GM/DL Hematocrit 39.1 % Mean Corpuscular Volume 85.2 FL Mean Corpuscular Hemoglobin 28.5 PG Mean Corpuscular Hemoglobin Concent 33.4 % Red Cell Distribution Width 14.8 % Platelet Count 320 TH/MM3 Mean Platelet Volume 7.2 FL Neutrophils (%) (Auto) 74.6 % Lymphocytes (%) (Auto) 14.4 % Monocytes (%) (Auto) 9.1 % Eosinophils (%) (Auto) 1.4 % Basophils (%) (Auto) 0.5 % Neutrophils # (Auto) 5.9 TH/MM3 Lymphocytes # (Auto) 1.1 TH/MM3 Monocytes # (Auto) 0.7 TH/MM3 Eosinophils # (Auto) 0.1 TH/MM3 Basophils # (Auto) 0.0 TH/MM3 CBC Comment DIFF FINAL Differential Comment Laboratory Tests Test 10/26/17 06:21 Creatinine 0.89 MG/DL Estimat Glomerular Filtration Rate 85 ML/MIN Last 72 hours Impressions Ankle MRI 10/26/17 0000 Signed Impressions: Service Date/Time: October 18:40 - CONCLUSION: Severe arthropathy of the ankle and subtalar joints with associated subchondral marrow edema and erosive changes. These findings are nonspecific, with infectious and inflammatory arthropathy both in the differential. Joint fluid aspiration may be helpful in ascertaining the correct diagnosis. If the ankle or subtalar joints are fairly infected, than the bony signal changes would be of concern for associated osteomyelitis. Jose Bernal MD Exam-Podiatry Remarks Right ankle- mild swelling, very mild redness appears to be mainly anterior lateral ankle. Mild pain with ROM. Pedal pulses palpable, neuro intact- sensation and muscle strength. Assessment & Plan A/P Right ankle Severe OA/ hematoma, R/O Septic joint. MRI reviewed, Ordered IR/Specials to tap ankle. Put a call out to Dr Cote verify protocol before, patient is to receive Benefix prior Will advise pending result of Micro and fluid analysis. Continue IV ABX for now. Bismark Hernandez DPM Oct 27, 2017 16:43
[2017-10-27] MEDS ORDERED: FACTOR IX IV ONE (17:00)
--- NOTE | 2017-10-27 17:05 | HHI.PR ---
Subjective Remarks Pt states that his ankle seems to be improving but was told by podiatry that it needed to be drained. Denies any pain at the ankle at this time. Denies any CP/ SOB/N/V Objective Vitals Vital Signs Date Time Temp Pulse Resp B/P (MAP) Pulse Ox O2 Delivery O2 Flow Rate FiO2 10/27/17 11:13 97.6 78 16 108/77 (87) 96 10/27/17 10:09 97.9 77 16 121/76 (91) 96 10/27/17 08:00 71 10/27/17 04:00 80 10/27/17 04:00 97.9 77 20 129/85 (100) 97 10/27/17 00:00 98.3 80 22 143/82 (102) 96 10/27/17 00:00 75 10/26/17 20:00 97.7 78 22 140/82 (101) 97 10/26/17 20:00 77 10/26/17 19:30 97.8 88 18 134/78 (96) 96 I/O 10/26/17 10/26/17 10/26/17 10/27/17 10/27/17 10/27/17 07:00 15:00 23:00 07:00 15:00 23:00 Intake Total 530 ml 50 ml Output Total 1400 ml 500 ml 2000 ml Balance -870 ml -450 ml -2000 ml Intake Oral 480 ml IV Total 50 ml 50 ml Output Urine Total 1400 ml 500 ml 2000 ml # Voids 4 Result Diagram: 10/26/17 0621 10/26/17 0621 Imaging Last Impressions Ankle MRI 10/26/17 0000 Signed Impressions: Service Date/Time: October 18:40 - CONCLUSION: Severe arthropathy of the ankle and subtalar joints with associated subchondral marrow edema and erosive changes. These findings are nonspecific, with infectious and inflammatory arthropathy both in the differential. Joint fluid aspiration may be helpful in ascertaining the correct diagnosis. If the ankle or subtalar joints are fairly infected, than the bony signal changes would be of concern for associated osteomyelitis. Jose Bernal MD Soft Tissue Ultrasound 10/24/17 0000 Signed Impressions: Service Date/Time: Tuesday, October 24, 2017 11:23 - CONCLUSION: 1.6 cm cystic area in the superficial soft tissues of the lateral foot may represent hematoma or cyst. Aubrey Philippe MD Ankle X-Ray 10/24/17 0000 Signed Impressions: Service Date/Time: Tuesday, October 24, 2017 16:12 - CONCLUSION: 1. 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 2. No evidence of fracture. Aubrey Philippe MD Objective Remarks AAOx3 nad EOMI Clear lungs BL RRR, no MRG abdomen is soft, nt, nd Swollen and erythematous on the lateral right foot/ankle that is mildly warm to touch. some range of motion noted Procedures none A/P Problem List: (1) Right ankle swelling ICD Code: M25.471 - Effusion, right ankle Status: Acute (2) Staphylococcus aureus bacteremia ICD Code: R78.81 - Bacteremia (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 1. Hemophilia B Factor IX deficiency. Patient sustained trauma to his foot on and has had swelling since that time MRI right ankle 10/21 No definite fracture identified. 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 Hematology consulted, appreciate recommendations. Given Factor IX in the ED. Dr. Cote plans to give additional dose of BeneFIX and monitor patients response. Monitor closely for signs of bleeding Podiatry following and recommends IR/Specials to tap ankle and continue IV abx for now. Fu hematology recommendations. 2. Infected hematoma Hemarthrosis right ankle Immunocompromised on po steroids for right shoulder pain. The patient presented with leukocytosis with left shift and warm right foot as well as less tender. Normal lactic acid. CRP elevated. Soft tissue ultrasound of the right ankle was obtained and shows a 1.6 cm cystic area in the superficial soft tissues of the lateral foot. ID following and managing abx on IV ancef. s/p vanco Podiatry following. 3. Coronary artery disease hypertension hyperlipidemia Blood pressure stable. Continue home antihypertensive medications-patient on amlodipine. 4. Hyperglycemia Prediabetes Hemoglobin A1c 6.2 Consult dietitian. Consider metformin upon dc. 6. Staph Aureus bacteremia ID consulted. recommendations appreciated. on Ancef IV Repeat blood cultures negative 1 . Discharge Planning continue IV abx IR to tap ankle. f/u cultures. appreciate input from podiatry and ID Problem Qualifiers (1) Leukocytosis: Qualified Codes: D72.829 - Elevated white blood cell count, unspecified Kristine Hunt MD Oct 27, 2017 17:05
--- NOTE | 2017-10-27 18:46 | PD.RAD ---
Post Procedure Progress Note Pre Procedure Diagnosis: (1) Effusion of ankle joint, right (2) Hemophilia B (3) Sepsis (4) Right ankle swelling Post Procedure Diagnosis: (1) Effusion of ankle joint, right (2) Sepsis (3) Hemophilia B (4) Right ankle swelling Procedure Date: Oct 27, 2017 Supervising Radiologist: Martínez Brady Proceduralist/Assist: Dorene Shore, RT(R)(), Vera Rodriguez RT(R) Anesthesia: Local Plan of Activity Patient to Unit: Nursing Unit Patient Condition: Good See PACS Report for procedural detail/treatment Drainage Procedure Procedure 1 Imaging Guidance: Fluoroscopy, Ultrasound Side: Right Procedure Type: Aspiration (ankle) Fluid Removal (CCs): 4 Fluid Description: Jackson Tripp Scott D. MD Oct 27, 2017 18:46
--- NOTE | 2017-10-27 18:51 | RADRPT ---
EXAM DATE/TIME: 10/27/2017 18:15 [facility] COMPARISON: No previous studies available for comparison. INDICATIONS : Patient with a history of right swollen ankle. MEDICAL HISTORY : Factor IX deficiency HTN Hyperlipidemia CAD SURGICAL HISTORY : None ENCOUNTER: Initial ACUITY: 4 - 6 days PAIN SCORE: 10/10 LOCATION: Right ankle FLUORO TIME: 1.3 minutes IMAGE SERIES: 2 DEVICE(S): 22 gauge needle was placed into the right ankle joint. RESPONSE: Pre procedure pain level was 10/10 Post procedure pain level was 7/10 FLUID: Total volume of 4 cc of cloudy red fluid was removed. Fluid specimen (3cc) was submitted to the lab for evaluation. PROCEDURE : 1. Fluoroscopically guided right ankle aspiration. The risks, benefits and alternatives to the procedure were explained and verbal and written consent w as obtained. The site was prepped in sterile fashion. Full sterile technique was used, including ca p, mask, sterile gloves and gown and a large sterile sheet. Hand hygiene and 2% chlorhexidine and/or betadine/alcohol prep was utilized per protocol for cutaneous antisepsis. The skin and subcutaneous tissues were infiltrated with local anesthetic solution. Right ankle joint was evaluated fluoroscopically. Area over the ankle joint was selected. Ultrasound was then used to map out the regional vasculature which was marked on the skin surface. A 22 gauge sp inal needle was then fluoroscopically guided into the joint space. The patient tolerated the procedure well and there were no complications. CONCLUSION: Uncomplicated aspiration as above. Martínez Brady MD on October 27, 2017 at 18:47 Board Certified Radiologist. This report was verified electronically.
[2017-10-28] VITALS (11 sets, daily range): BP systolic 114–138; BP diastolic 69–88; PULSE 76–104; RESP 16–20; TEMP 97.5–98.3; O2SAT 94–97
[2017-10-28] MEDS: ceFAZolin 2 GM PREMIX 50 ML IV SCH ×3 (04:33→22:03)
[2017-10-28] MEDS: SODIUM CHLOR 0.9% 1000 ML INJ 1,000 ML IV SCH ×3 (04:33→20:00)
[2017-10-28 04:37] LABS: AUTOMATED NEUTROPHIL # 6.2 TH/MM3 (1.8-7.7); BASOPHIL # 0.1 TH/MM3 (0-0.2); BASOPHIL % 0.6 % (0.0-2.0); EOSINOPHIL # 0.1 TH/MM3 (0-0.4); EOSINOPHIL % 1.5 % (0.0-4.0); HEMATOCRIT 38.6 % (39.0-51.0); LYMPHOCYTE # 1.1 TH/MM3 (1.0-4.8); MEAN CELL VOLUME 84.6 FL (80.0-100.0); MEAN CORPUSCULAR HEMOGLOBIN 28.6 PG (27.0-34.0); MEAN CORPUSCULAR HGB CONC 33.8 % (32.0-36.0); MEAN PLATELET VOLUME 6.9 FL (7.0-11.0); MONO % 8.4 % (0.0-8.0); MONOCYTE # 0.7 TH/MM3 (0-0.9); NEUT % 75.5 % (16.0-70.0); PLATELET COUNT 379 TH/MM3 (150-450); RED BLOOD COUNT 4.56 MIL/MM3 (4.50-5.90); RED CELL DISTRIBUTION WIDTH 14.3 % (11.6-17.2); WHITE BLOOD COUNT 8.2 TH/MM3 (4.0-11.0)
[2017-10-28 04:42] LABS: BICARBONATE 27.1 MEQ/L (21.0-32.0); CALCIUM 8.7 MG/DL (8.5-10.1); CREATININE 0.82 MG/DL (0.60-1.30)
[2017-10-28] MEDS ORDERED: PHARMACY ORDERED LAB ONE (05:45)
--- NOTE | 2017-10-28 07:01 | HHI.PR ---
Subjective Remarks Patient seen and examined this morning. His vitals are stable he is afebrile. Reports foot feels much better, anxious to walk with walker. Wants to know when he can go home. States redness and swelling is better. Objective Vital Signs Date Time Temp Pulse Resp B/P (MAP) Pulse Ox O2 Delivery O2 Flow Rate FiO2 10/28/17 04:00 79 10/28/17 04:00 98.3 84 20 117/69 (85) 95 10/28/17 00:00 82 10/28/17 00:00 97.5 76 20 138/88 (105) 96 10/27/17 20:00 78 10/27/17 20:00 98.0 83 22 136/81 (99) 97 10/27/17 20:00 98.0 83 22 136/81 (99) 97 10/27/17 16:50 97.5 76 16 110/70 (83) 97 10/27/17 16:00 71 10/27/17 12:00 78 10/27/17 11:13 97.6 78 16 108/77 (87) 96 10/27/17 10:09 97.9 77 16 121/76 (91) 96 10/27/17 08:00 71 I/O 10/27/17 10/27/17 10/27/17 10/28/17 10/28/17 10/28/17 07:00 15:00 23:00 07:00 15:00 23:00 Intake Total 120 ml Output Total 2000 ml 1300 ml 1300 ml Balance -2000 ml -1300 ml -1180 ml Intake Oral 120 ml Output Urine Total 2000 ml 1300 ml 1300 ml # Voids 4 Result Diagram: 10/28/17 0413 10/28/17 0413 Imaging Last Impressions Aspiration 10/27/17 0000 Signed Impressions: Service Date/Time: Friday, October 27, 2017 18:15 - CONCLUSION: Uncomplicated aspiration as above. Martínez Brady MD Ankle MRI 10/26/17 0000 Signed Impressions: Service Date/Time: October 18:40 - CONCLUSION: Severe arthropathy of the ankle and subtalar joints with associated subchondral marrow edema and erosive changes. These findings are nonspecific, with infectious and inflammatory arthropathy both in the differential. Joint fluid aspiration may be helpful in ascertaining the correct diagnosis. If the ankle or subtalar joints are fairly infected, than the bony signal changes would be of concern for associated osteomyelitis. Jose Bernal MD Soft Tissue Ultrasound 10/24/17 0000 Signed Impressions: Service Date/Time: Tuesday, October 24, 2017 11:23 - CONCLUSION: 1.6 cm cystic area in the superficial soft tissues of the lateral foot may represent hematoma or cyst. Aubrey Philippe MD Ankle X-Ray 10/24/17 0000 Signed Impressions: Service Date/Time: Tuesday, October 24, 2017 16:12 - CONCLUSION: 1. 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 2. No evidence of fracture. Aubrey Philippe MD Objective Remarks GENERAL: Well-appearing, no acute distress SKIN: Warm and dry. HEAD: Normocephalic. EYES: No scleral icterus. No injection or drainage. NECK: Supple, trachea midline. No JVD or lymphadenopathy. CARDIOVASCULAR: Regular rate and rhythm without murmurs, gallops, or rubs. RESPIRATORY: Breath sounds equal bilaterally. No accessory muscle use. GASTROINTESTINAL: Abdomen soft, non-tender, nondistended. 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 He presented to the ER for evaluation of a right swollen foot after sustaining a trauma. Hemophilia B, factor IX deficiency -Hematology is consulted. Patient status post 2 doses of BeneFIX Infected hematoma, sandra-arthrosis right ankle -See MRI above, "no definitive fracture advanced chronic arthropathy at the ankle joint and subtalar joint, probable remote injury to the talofibular ligaments, positive ankle joint effusion and tenosynovitis surrounds the flexor tendons at the medial posterior foot." -Ultrasound shows 1.6 cm cystic area in the superficial soft tissues of lateral foot -Podiatry consulted & following -The patient is status post ultrasound-guided aspiration of the right ankle, cultures pending Coronary artery disease/hypertension/hyperlipidemia -Continue home medications which include amlodipine Prediabetic -A1c 6.2, dietitian has been consulted - Recommend metformin on discharge, he can follow this up with his primary doctor Staph aureus bacteremia -Blood cultures on 424 with 304 tubes growing staph aureus. Repeat blood cultures on 10/26 showed no growth to date -Patient is being followed by infectious disease, currently on Ancef ( vancomycin DC'd on 10/26) infectious disease discussed case with linda Mckinnon to perform surgery or joint aspiration. - aspiration cultures pending Attending Attestation Discharge pending clearance by infectious disease and podiatry. Likely in 2 days when cultures finalize. Problem Qualifiers (1) Leukocytosis: Qualified Codes: D72.829 - Elevated white blood cell count, unspecified Michela Gonzales MD Oct 28, 2017 07:01
[2017-10-28] MEDS: methylPREDNISolone 4 MG TAB PO SCH (08:32)
[2017-10-28] MEDS: ATORVASTATIN 40 MG TAB PO SCH (08:32)
[2017-10-28] MEDS: amLODIPine BESYLATE 5 MG TAB PO SCH (08:32)
[2017-10-28] MEDS: SODIUM CHLORIDE 0.9% FLUSH 10 ML FLUSH IV FLUSH SCH ×2 (08:33→21:00)
[2017-10-29] VITALS (13 sets, daily range): BP systolic 112–135; BP diastolic 60–80; PULSE 16–100; RESP 16–18; TEMP 97.8–98.8; O2SAT 95–98
[2017-10-29] MEDS: SODIUM CHLOR 0.9% 1000 ML INJ 1,000 ML IV SCH ×2 (05:48→16:00)
[2017-10-29] MEDS: ceFAZolin 2 GM PREMIX 50 ML IV SCH ×3 (05:48→22:12)
--- NOTE | 2017-10-29 06:41 | HHI.PR ---
Subjective Remarks Patient seen and examined this morning. His vitals are stable he is afebrile. Reports foot feels much better, anxious to go home where he feels he will recuperate better. No complaints or concerns this am. Mobility of ankle increased. Objective Vital Signs Date Time Temp Pulse Resp B/P (MAP) Pulse Ox O2 Delivery O2 Flow Rate FiO2 10/29/17 04:01 81 10/29/17 04:00 97.9 82 18 132/77 (95) 96 10/29/17 03:00 82 10/29/17 02:00 100 10/29/17 01:00 76 10/29/17 00:16 98.2 84 16 130/80 (97) 95 10/29/17 00:06 86 10/28/17 23:00 84 10/28/17 22:00 92 10/28/17 21:00 104 10/28/17 20:36 97.5 85 19 114/80 (91) 97 10/28/17 20:09 88 10/28/17 19:00 92 10/28/17 17:20 98.0 87 16 137/70 (92) 94 10/28/17 11:57 98.0 78 16 122/79 (93) 96 10/28/17 08:23 97.9 79 16 127/79 (95) 95 I/O 10/28/17 10/28/17 10/28/17 10/29/17 10/29/17 10/29/17 07:00 15:00 23:00 07:00 15:00 23:00 Intake Total 120 ml 1200 ml Output Total 1300 ml 2275 ml 250 ml Balance -1180 ml -1075 ml -250 ml Intake Oral 120 ml 1200 ml Output Urine Total 1300 ml 2275 ml 250 ml # Voids 1 # Bowel Movements 1 Result Diagram: 10/28/17 0413 10/28/17 0413 Imaging Last Impressions Aspiration 10/27/17 0000 Signed Impressions: Service Date/Time: Friday, October 27, 2017 18:15 - CONCLUSION: Uncomplicated aspiration as above. Martínez Brady MD Ankle MRI 10/26/17 0000 Signed Impressions: Service Date/Time: October 18:40 - CONCLUSION: Severe arthropathy of the ankle and subtalar joints with associated subchondral marrow edema and erosive changes. These findings are nonspecific, with infectious and inflammatory arthropathy both in the differential. Joint fluid aspiration may be helpful in ascertaining the correct diagnosis. If the ankle or subtalar joints are fairly infected, than the bony signal changes would be of concern for associated osteomyelitis. Jose Bernal MD Soft Tissue Ultrasound 10/24/17 0000 Signed Impressions: Service Date/Time: Tuesday, October 24, 2017 11:23 - CONCLUSION: 1.6 cm cystic area in the superficial soft tissues of the lateral foot may represent hematoma or cyst. Aubrey Philippe MD Ankle X-Ray 10/24/17 0000 Signed Impressions: Service Date/Time: Tuesday, October 24, 2017 16:12 - CONCLUSION: 1. 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 2. No evidence of fracture. Aubrey Philippe MD Objective Remarks GENERAL: Well-appearing, no acute distress SKIN: Warm and dry. HEAD: Normocephalic. EYES: No scleral icterus. No injection or drainage. NECK: Supple, trachea midline. No JVD or lymphadenopathy. CARDIOVASCULAR: Regular rate and rhythm without murmurs, gallops, or rubs. RESPIRATORY: Breath sounds equal bilaterally. No accessory muscle use. GASTROINTESTINAL: Abdomen soft, non-tender, nondistended. 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 He presented to the ER for evaluation of a right swollen foot after sustaining a trauma. Hemophilia B, factor IX deficiency -Hematology is consulted. Patient status post 2 doses of BeneFIX Infected hematoma, sandra-arthrosis right ankle -See MRI above, "no definitive fracture advanced chronic arthropathy at the ankle joint and subtalar joint, probable remote injury to the talofibular ligaments, positive ankle joint effusion and tenosynovitis surrounds the flexor tendons at the medial posterior foot." -Ultrasound shows 1.6 cm cystic area in the superficial soft tissues of lateral foot -Podiatry consulted & following -The patient is status post ultrasound-guided aspiration of the right ankle, cultures growing staph aureus, no fungal elements seen as of yet Coronary artery disease/hypertension/hyperlipidemia -Continue home medications which include amlodipine Prediabetic -A1c 6.2, dietitian has been consulted - Recommend metformin on discharge, he can follow this up with his primary doctor Staph aureus bacteremia -Blood cultures on 424 with 304 tubes growing staph aureus. Repeat blood cultures on 10/26 showed no growth to date -Patient is being followed by infectious disease, currently on Ancef ( vancomycin DC'd on 10/26) infectious disease discussed case with linda Mckinnon to perform surgery or joint aspiration. Discharge Planning d/c pending podiatry clearance (cultures +stap aureus) Problem Qualifiers (1) Leukocytosis: Qualified Codes: D72.829 - Elevated white blood cell count, unspecified Michela Gonzales MD Oct 29, 2017 06:41
[2017-10-29] MEDS: amLODIPine BESYLATE 5 MG TAB PO SCH (07:46)
[2017-10-29] MEDS: methylPREDNISolone 4 MG TAB PO SCH (07:46)
[2017-10-29] MEDS: ATORVASTATIN 40 MG TAB PO SCH (07:46)
[2017-10-29] MEDS: SODIUM CHLORIDE 0.9% FLUSH 10 ML FLUSH IV FLUSH SCH ×2 (07:48→20:14)
--- NOTE | 2017-10-29 09:29 | PD.POD ---
Subjective Pain score: 3 Remarks Right ankle is improving. Past Med/Surg/Social History Social History Smoking Status: Never Smoker Objective Vital Signs Vital Signs Date Time Temp Pulse Resp B/P (MAP) Pulse Ox O2 Delivery O2 Flow Rate FiO2 10/29/17 07:44 98.8 85 18 127/79 (95) 95 10/29/17 07:37 76 10/29/17 04:01 81 10/29/17 04:00 97.9 82 18 132/77 (95) 96 10/29/17 03:00 82 10/29/17 02:00 100 10/29/17 01:00 76 10/29/17 00:16 98.2 84 16 130/80 (97) 95 10/29/17 00:06 86 10/28/17 23:00 84 10/28/17 22:00 92 10/28/17 21:00 104 10/28/17 20:36 97.5 85 19 114/80 (91) 97 10/28/17 20:09 88 10/28/17 19:00 92 10/28/17 17:20 98.0 87 16 137/70 (92) 94 10/28/17 11:57 98.0 78 16 122/79 (93) 96 Coded Allergies: Sulfa (Sulfonamide Antibiotics) (Verified Allergy, Severe, RASH, 10/20/17) Medications and IVs Administered Medications Medications (Trade) Dose Ordered Sig/Joi Route PRN Reason Start Time Stop Time Status Last Admin Dose Admin Sodium Chloride 1,000 ml @ 100 mls/hr Q10H IV 10/23/17 20:00 10/29/17 05:48 Sodium Chloride (NS Flush) 2 ml BID IV FLUSH 10/23/17 21:00 10/29/17 07:48 Acetaminophen (Tylenol) 650 mg Q4H PRN PO TEMP > 100.4 10/23/17 20:00 10/25/17 05:30 Amlodipine Besylate (Norvasc) 5 mg DAILY PO 10/24/17 09:00 10/29/17 07:46 Atorvastatin Calcium (Lipitor) 40 mg DAILY PO 10/24/17 09:00 10/29/17 07:46 Acetaminophen/ Hydrocodone Bitart ([place] 5-325 Mg) 1 tab Q4H PRN PO PAIN SCALE 3 TO 5 10/23/17 20:15 10/27/17 08:01 Methylprednisolone (Medrol) 4 mg DAILY PO 10/24/17 09:00 10/29/17 07:46 Morphine Sulfate (Morphine Inj) 2 mg Q3H PRN IV PAIN SCALE 6 TO 10 10/23/17 21:30 10/25/17 21:07 Cefazolin Sodium/ Dextrose 50 ml @ 100 mls/hr Q8H IV 10/25/17 14:00 10/29/17 05:48 Other Results Laboratory Tests Test 10/28/17 04:13 White Blood Count 8.2 TH/MM3 Red Blood Count 4.56 MIL/MM3 Hemoglobin 13.0 GM/DL Hematocrit 38.6 % Mean Corpuscular Volume 84.6 FL Mean Corpuscular Hemoglobin 28.6 PG Mean Corpuscular Hemoglobin Concent 33.8 % Red Cell Distribution Width 14.3 % Platelet Count 379 TH/MM3 Mean Platelet Volume 6.9 FL Neutrophils (%) (Auto) 75.5 % Lymphocytes (%) (Auto) 14.0 % Monocytes (%) (Auto) 8.4 % Eosinophils (%) (Auto) 1.5 % Basophils (%) (Auto) 0.6 % Neutrophils # (Auto) 6.2 TH/MM3 Lymphocytes # (Auto) 1.1 TH/MM3 Monocytes # (Auto) 0.7 TH/MM3 Eosinophils # (Auto) 0.1 TH/MM3 Basophils # (Auto) 0.1 TH/MM3 CBC Comment DIFF FINAL Differential Comment Laboratory Tests Test 10/28/17 04:13 Blood Urea Nitrogen 16 MG/DL Creatinine 0.82 MG/DL Random Glucose 136 MG/DL Calcium Level 8.7 MG/DL Sodium Level 137 MEQ/L Potassium Level 4.2 MEQ/L Chloride Level 101 MEQ/L Carbon Dioxide Level 27.1 MEQ/L Anion Gap 9 MEQ/L Estimat Glomerular Filtration Rate 93 ML/MIN Microbiology Date/Time Source Procedure Growth Status 10/26/17 15:00 Blood Peripheral Aerobic Blood Culture - Preliminary NO GROWTH IN 2 DAYS Resulted 10/26/17 15:00 Blood Peripheral Anaerobic Blood Culture - Preliminary NO GROWTH IN 2 DAYS Resulted 10/26/17 14:55 Blood Peripheral Aerobic Blood Culture - Preliminary NO GROWTH IN 2 DAYS Resulted 10/26/17 14:55 Blood Peripheral Anaerobic Blood Culture - Preliminary NO GROWTH IN 2 DAYS Resulted 4/27/18 18:18 Fluid Synovial Fluid Fungal Smear - Final NO FUNGAL ELEMENTS SEEN. Resulted 10/27/17 18:18 Fluid Synovial Fluid Fungal Culture Pending Resulted 10/27/17 18:18 Fluid Synovial Fluid Gram Stain - Final Resulted 10/27/17 18:18 Body Fluid Culture - Preliminary Staphylococcus Aureus Resulted Exam-Podiatry Remarks Right ankle: Much improved redness swelling, mild improvement of range of motion. Aspiration site appears clean anterior ankle. Pedal pulses palpable sensation intact, much improved redness below demarcated cellulitic line Assessment & Plan A/P Right ankle Severe OA/ hematoma, R/O Septic joint. Staph aureus is noted from aspiration from interventional radiology. JASPREET to follow. My recommendation is to treat with long-term IV antibiotics await infectious disease recommendations. Reviewed case with medicine. For now no surgical intervention recommended will follow closely outpatient. Bismark Hernandez DPM Oct 29, 2017 09:29
--- NOTE | 2017-10-29 23:25 | HHI.IDPN ---
Subjective Subjective Remarks Delayed entry X cover for Dr Alexander chart was reviewed Mr. 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 Remberto Baker is now retired. Patient subsequently did not seek any medical attention until more recently when he saw Dr. Cote during hospital admission. He has not had a chance to follow up outpatient yet. Per review of notes it appears that his documented factor IX activity level is around 11%. 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 He was seen in consultation on 09/27/2017 where he presented with chest pain and seen by Cardiology. He was treated conservatively for atypical chest pain. Patient reports that it hurt his shoulder and subsequently he his right ankle. The shoulder pain was treated conservatively. On October 20, 2017 patient presented to the emergency room when his right ankle started swelling up. He reports that he may have kicked a recliner that led to the swelling of his right ankle. Due to progressive worsening of swelling and pain he decided to come to the emergency department. Patient received a dose of the clotting factor as well as benefits 2000 units along with pain medications but since there was no relief he came back to the hospital. Subsequently patient was seen in the hematology clinic for an unscheduled OB visit. Patient did not have clearance from his insurance company to allow factor administration in the clinic. Due to worsening symptoms in the right ankle he was sent to the emergency department from the hematology clinic. Patient reports that since his antibiotics were started he feels a little better. His is in the room and reports that patient appears to be confused and is not at baseline mentally in terms of clarity of thinking. Sepsis workup was initiated blood cultures grew staph aureus very gene identification is possible methicillin sensitive staph aureus final identification pending. Infectious disease is consulted for evaluation and management of MSSA bacteremia in a hemophilia patient. Overnight events reviewed No fevers No rash No diarrhea BCX 2nd set with GPC. Reviewed Podiatry note. magan Hernandez synovial fluid Clx + for MSSA Antibiotics Ancef IV Lines Line sites with no e.o infection Past Medical History Past Medical History Hemophilia B baseline activity level 11%, right ankle hemophiliac arthropathy, atypical chest pain. Past Surgical History Tooth extraction, Mohs surgery. Allergies: Coded Allergies: Sulfa (Sulfonamide Antibiotics) (Verified Allergy, Severe, RASH, 10/20/17) Objective . Vital Signs Date Time Temp Pulse Resp B/P (MAP) Pulse Ox O2 Delivery O2 Flow Rate FiO2 10/29/17 20:15 98.3 77 16 112/60 (77) 98 10/29/17 17:03 97.8 75 16 135/77 (96) 97 10/29/17 12:35 98.0 16 16 131/79 (96) 96 10/29/17 07:44 98.8 85 18 127/79 (95) 95 10/29/17 07:37 76 10/29/17 04:01 81 10/29/17 04:00 97.9 82 18 132/77 (95) 96 10/29/17 03:00 82 10/29/17 02:00 100 10/29/17 01:00 76 10/29/17 00:16 98.2 84 16 130/80 (97) 95 10/29/17 00:06 86 10/28/17 23:00 84 10/29/17 10/29/17 10/30/17 15:00 23:00 07:00 Intake Total 1320 ml Output Total 1350 ml 1600 ml Balance -1350 ml -280 ml Intake Oral 1320 ml Output Urine Total 1350 ml 1600 ml # Bowel Movements 1 . Laboratory Tests Test 10/28/17 04:13 White Blood Count 8.2 TH/MM3 Red Blood Count 4.56 MIL/MM3 Hemoglobin 13.0 GM/DL Hematocrit 38.6 % Mean Corpuscular Volume 84.6 FL Mean Corpuscular Hemoglobin 28.6 PG Mean Corpuscular Hemoglobin Concent 33.8 % Red Cell Distribution Width 14.3 % Platelet Count 379 TH/MM3 Mean Platelet Volume 6.9 FL Neutrophils (%) (Auto) 75.5 % Lymphocytes (%) (Auto) 14.0 % Monocytes (%) (Auto) 8.4 % Eosinophils (%) (Auto) 1.5 % Basophils (%) (Auto) 0.6 % Neutrophils # (Auto) 6.2 TH/MM3 Lymphocytes # (Auto) 1.1 TH/MM3 Monocytes # (Auto) 0.7 TH/MM3 Eosinophils # (Auto) 0.1 TH/MM3 Basophils # (Auto) 0.1 TH/MM3 CBC Comment DIFF FINAL Differential Comment Laboratory Tests Test 10/28/17 04:13 Blood Urea Nitrogen 16 MG/DL Creatinine 0.82 MG/DL Random Glucose 136 MG/DL Calcium Level 8.7 MG/DL Sodium Level 137 MEQ/L Potassium Level 4.2 MEQ/L Chloride Level 101 MEQ/L Carbon Dioxide Level 27.1 MEQ/L Anion Gap 9 MEQ/L Estimat Glomerular Filtration Rate 93 ML/MIN Microbiology Date/Time Source Procedure Growth Status 10/27/17 18:18 Fluid Synovial Fluid Fungal Smear - Final NO FUNGAL ELEMENTS SEEN. Resulted 10/27/17 18:18 Fluid Synovial Fluid Fungal Culture Pending Resulted 10/27/17 18:18 Fluid Synovial Fluid Gram Stain - Final Complete 10/27/17 18:18 Body Fluid Culture - Final Staphylococcus Aureus Complete Imaging Last Impressions Ankle MRI 10/26/17 0000 Signed Impressions: Service Date/Time: October 18:40 - CONCLUSION: Severe arthropathy of the ankle and subtalar joints with associated subchondral marrow edema and erosive changes. These findings are nonspecific, with infectious and inflammatory arthropathy both in the differential. Joint fluid aspiration may be helpful in ascertaining the correct diagnosis. If the ankle or subtalar joints are fairly infected, than the bony signal changes would be of concern for associated osteomyelitis. Jose Bernal MD Soft Tissue Ultrasound 10/24/17 0000 Signed Impressions: Service Date/Time: Tuesday, October 24, 2017 11:23 - CONCLUSION: 1.6 cm cystic area in the superficial soft tissues of the lateral foot may represent hematoma or cyst. Aubrey Philippe MD Ankle X-Ray 10/24/17 0000 Signed Impressions: Service Date/Time: Tuesday, October 24, 2017 16:12 - CONCLUSION: 1. 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 2. No evidence of fracture. Aubrey Philippe MD Physical Exam GENERAL: This is a well-nourished, well-developed patient, in no apparent distress. SKIN: No rashes, ecchymoses or lesions. Cool and dry. HEAD: Atraumatic. Normocephalic. No temporal or scalp tenderness. EYES: Pupils equal round and reactive. No scleral icterus. No injection or drainage. ENT: Nose without bleeding, purulent drainage or septal hematoma. Throat without erythema, tonsillar hypertrophy or exudate. Uvula midline. Airway patent. NECK: Trachea midline. Supple, nontender, no meningeal signs. CARDIOVASCULAR: HS audible. RESPIRATORY: Clear to auscultation. Breath sounds equal bilaterally. GASTROINTESTINAL: Abdomen soft, non-tender, nondistended. MUSCULOSKELETAL: Right LE outer aspect with erythema noted, induration and tenderness with decreased ROM. Slight decrease in erythema but overall still concerning for infected joint underlying osteomyelitis. Edema and probable effusion of R ankle noted NEUROLOGICAL: Awake and alert. oriented.Non focal exam. Psych cooperative IV line sites with no e.o infection. Assessment & Plan Remarks Staph aureus bacteremia (has no port, PICC or e/o prior IV line site phlebitis etc) Right ankle hematoma with no effusion on Xray. Hematoma on outer aspect of right ankle likely infected and source of infection. Hemophilia Recs: Continue Ancef IV for MSSA bacteremia Repeat blood cultures to be followed Dw : infected hematome;: needs drainage Pt will need factor IX prior surgery Follow cultures Follow clinically Discussed with patient. Amarilys Tee MD Oct 29, 2017 23:25
[2017-10-30] VITALS (8 sets, daily range): BP systolic 108–123; BP diastolic 70–77; PULSE 73–90; RESP 16–20; TEMP 97.6–98.8; O2SAT 95–98
[2017-10-30] MEDS: SODIUM CHLOR 0.9% 1000 ML INJ 1,000 ML IV SCH ×2 (02:21→13:57)
[2017-10-30] MEDS: ceFAZolin 2 GM PREMIX 50 ML IV SCH ×3 (05:09→19:39)
[2017-10-30] MEDS: SODIUM CHLORIDE 0.9% FLUSH 10 ML FLUSH IV FLUSH SCH (09:00)
--- NOTE | 2017-10-30 09:49 | PD.ONC.PN ---
Subjective Subjective Remarks Afebrile overnight. Patient resting in bed in nad. Wants to go home. "When can I go home?" Tolerating antibiotics. Objective Data Date Time Temp Pulse Resp B/P (MAP) Pulse Ox O2 Delivery O2 Flow Rate FiO2 10/30/17 05:00 98.0 82 18 108/72 (84) 96 10/30/17 04:09 79 10/30/17 00:22 97.9 83 16 123/77 (92) 95 10/30/17 00:16 79 10/29/17 20:15 98.3 77 16 112/60 (77) 98 10/29/17 20:01 86 10/29/17 17:03 97.8 75 16 135/77 (96) 97 10/29/17 12:35 98.0 16 16 131/79 (96) 96 10/30/17 10/30/17 10/30/17 07:00 15:00 23:00 Intake Total 900 ml Output Total 775 ml Balance 125 ml Result Diagram: 10/28/17 0413 10/28/17 0413 Culture Results Microbiology Date/Time Source Procedure Growth Status 10/27/17 18:18 Fluid Synovial Fluid Fungal Smear - Final NO FUNGAL ELEMENTS SEEN. Resulted 10/27/17 18:18 Fluid Synovial Fluid Fungal Culture Pending Resulted 10/27/17 18:18 Fluid Synovial Fluid Gram Stain - Final Complete 10/27/17 18:18 Body Fluid Culture - Final Staphylococcus Aureus Complete Administered Medications Medications (Trade) Dose Ordered Sig/Joi Route PRN Reason Start Time Stop Time Status Last Admin Dose Admin Sodium Chloride 1,000 ml @ 100 mls/hr Q10H IV 10/23/17 20:00 10/30/17 02:21 Sodium Chloride (NS Flush) 2 ml BID IV FLUSH 10/23/17 21:00 10/29/17 07:48 Acetaminophen (Tylenol) 650 mg Q4H PRN PO TEMP > 100.4 10/23/17 20:00 10/25/17 05:30 Amlodipine Besylate (Norvasc) 5 mg DAILY PO 10/24/17 09:00 10/29/17 07:46 Atorvastatin Calcium (Lipitor) 40 mg DAILY PO 10/24/17 09:00 10/29/17 07:46 Acetaminophen/ Hydrocodone Bitart ([place] 5-325 Mg) 1 tab Q4H PRN PO PAIN SCALE 3 TO 5 10/23/17 20:15 10/27/17 08:01 Morphine Sulfate (Morphine Inj) 2 mg Q3H PRN IV PAIN SCALE 6 TO 10 10/23/17 21:30 10/25/17 21:07 Cefazolin Sodium/ Dextrose 50 ml @ 100 mls/hr Q8H IV 10/25/17 14:00 10/30/17 05:09 Objective Remarks GENERAL: Middle aged male, sitting upright in bed in nad. SKIN: Warm and dry. HEAD: Normocephalic. EYES: No injection or drainage. NECK: Supple, trachea midline. CARDIOVASCULAR: Regular rate and rhythm RESPIRATORY: Breath sounds equal bilaterally. No accessory muscle use. GASTROINTESTINAL: Abdomen soft, non-tender, nondistended. EXTREMITIES: No cyanosis. right ankle with mild swelling and erythema noted over lateral surface. NEUROLOGICAL: no focal deficit. 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 --Patient is status post 2 doses of BeneFIX-->now at 100% factor IX --Factor IX levels drawn just prior to second dose of BeneFIX; (2) Right ankle swelling ICD Codes: M25.471 - Effusion, right ankle Status: Acute Plan: --Patient was hemophilia B admitted with bleed in his right ankle --Reports the swelling began after he hit his foot on a recliner at home --Appears to have cellulitis in this ankle; blood cultures positive for Staphylococcus aureus --Infectious disease following (3) Sepsis ICD Codes: A41.9 - Sepsis, unspecified organism Plan: ++BC for S. Aureus. Assessment 67 y/o male with hemophilia B admitted for right ankle swelling Plan 1. continue antibiotics per infectious disease 2. monitor CBC 3. ok to d/c from hematology perspective when cleared by ID. Attending Statement The exam, history, and the medical decision-making described in the above note were completed with the assistance of the mid-level provider. I reviewed and agree with the findings presented. I attest that I had a [id number] encounter with the patient on the same day, and personally performed and documented my assessment and findings in the medical record. R ankle with swelling down, erythema resolved. Pic line R upper arm in place. Eager to go home. Discussed fu in clinic in 1-2 weeks. Baseline FIX 20% prior to Benefix. No other bleeding episode. Ok for DC from heme/onc standpoint. Yennifer Zhang Oct 30, 2017 09:49 Kavita Cote MD Oct 30, 2017 19:14
[2017-10-30] MEDS: ATORVASTATIN 40 MG TAB PO SCH (10:22)
[2017-10-30] MEDS: amLODIPine BESYLATE 5 MG TAB PO SCH (10:22)
--- NOTE | 2017-10-30 12:23 | HHI.IDPN ---
Subjective Subjective Remarks Mr. 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 Remberto Baker is now retired. Patient subsequently did not seek any medical attention until more recently when he saw Dr. Cote during hospital admission. He has not had a chance to follow up outpatient yet. Per review of notes it appears that his documented factor IX activity level is around 11%. 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 He was seen in consultation on 09/27/2017 where he presented with chest pain and seen by Cardiology. He was treated conservatively for atypical chest pain. Patient reports that it hurt his shoulder and subsequently he his right ankle. The shoulder pain was treated conservatively. On October 20, 2017 patient presented to the emergency room when his right ankle started swelling up. He reports that he may have kicked a recliner that led to the swelling of his right ankle. Due to progressive worsening of swelling and pain he decided to come to the emergency department. Patient received a dose of the clotting factor as well as benefits 2000 units along with pain medications but since there was no relief he came back to the hospital. Subsequently patient was seen in the hematology clinic for an unscheduled OB visit. Patient did not have clearance from his insurance company to allow factor administration in the clinic. Due to worsening symptoms in the right ankle he was sent to the emergency department from the hematology clinic. Patient reports that since his antibiotics were started he feels a little better. His is in the room and reports that patient appears to be confused and is not at baseline mentally in terms of clarity of thinking. Sepsis workup was initiated blood cultures grew staph aureus very gene identification is possible methicillin sensitive staph aureus final identification pending. Infectious disease is consulted for evaluation and management of MSSA bacteremia in a hemophilia patient. Overnight events reviewed No fevers No rash No diarrhea MSSA bacteremia secondary to MSSA right knee septic arthritis, possible osteomyelitis. Self reports h/o kicking a recliner despite knowing his hemophilia problem. Antibiotics Ancef IV Lines Line sites with no e.o infection Past Medical History Past Medical History Hemophilia B baseline activity level 11%, right ankle hemophiliac arthropathy, atypical chest pain. Past Surgical History Tooth extraction, Mohs surgery. Allergies: Coded Allergies: Sulfa (Sulfonamide Antibiotics) (Verified Allergy, Severe, RASH, 10/20/17) Objective . Vital Signs Date Time Temp Pulse Resp B/P (MAP) Pulse Ox O2 Delivery O2 Flow Rate FiO2 10/30/17 12:03 97.6 73 18 119/70 (86) 98 10/30/17 10:12 98.8 81 20 121/74 (90) 97 10/30/17 05:00 98.0 82 18 108/72 (84) 96 10/30/17 04:09 79 10/30/17 00:22 97.9 83 16 123/77 (92) 95 10/30/17 00:16 79 10/29/17 20:15 98.3 77 16 112/60 (77) 98 10/29/17 20:01 86 10/29/17 17:03 97.8 75 16 135/77 (96) 97 10/29/17 12:35 98.0 16 16 131/79 (96) 96 10/30/17 10/30/17 10/31/17 15:00 23:00 07:00 Output Total 650 ml Balance -650 ml Output Urine Total 650 ml . Microbiology Date/Time Source Procedure Growth Status 10/27/17 18:18 Fluid Synovial Fluid Fungal Smear - Final NO FUNGAL ELEMENTS SEEN. Resulted 10/27/17 18:18 Fluid Synovial Fluid Fungal Culture Pending Resulted 10/27/17 18:18 Fluid Synovial Fluid Gram Stain - Final Complete 10/27/17 18:18 Body Fluid Culture - Final Staphylococcus Aureus Complete Imaging Last Impressions Ankle MRI 10/26/17 0000 Signed Impressions: Service Date/Time: October 18:40 - CONCLUSION: Severe arthropathy of the ankle and subtalar joints with associated subchondral marrow edema and erosive changes. These findings are nonspecific, with infectious and inflammatory arthropathy both in the differential. Joint fluid aspiration may be helpful in ascertaining the correct diagnosis. If the ankle or subtalar joints are fairly infected, than the bony signal changes would be of concern for associated osteomyelitis. Jose Bernal MD Soft Tissue Ultrasound 10/24/17 0000 Signed Impressions: Service Date/Time: Tuesday, October 24, 2017 11:23 - CONCLUSION: 1.6 cm cystic area in the superficial soft tissues of the lateral foot may represent hematoma or cyst. Aubrey Philippe MD Ankle X-Ray 10/24/17 0000 Signed Impressions: Service Date/Time: Tuesday, October 24, 2017 16:12 - CONCLUSION: 1. 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 2. No evidence of fracture. Aubrey Philippe MD Physical Exam GENERAL: This is a well-nourished, well-developed patient, in no apparent distress. SKIN: No rashes, ecchymoses or lesions. Cool and dry. HEAD: Atraumatic. Normocephalic. No temporal or scalp tenderness. EYES: Pupils equal round and reactive. No scleral icterus. No injection or drainage. ENT: Nose without bleeding, purulent drainage or septal hematoma. Throat without erythema, tonsillar hypertrophy or exudate. Uvula midline. Airway patent. NECK: Trachea midline. Supple, nontender, no meningeal signs. CARDIOVASCULAR: HS audible. RESPIRATORY: Clear to auscultation. Breath sounds equal bilaterally. GASTROINTESTINAL: Abdomen soft, non-tender, nondistended. MUSCULOSKELETAL: Right LE outer aspect significantly improved. NEUROLOGICAL: Awake and alert. oriented.Non focal exam. Psych cooperative IV line sites with no e.o infection. Assessment & Plan Remarks Sepsis present on admission MSSA bacteremia (has no port, PICC or e/o prior IV line site phlebitis etc) MSSA septic arthritis and osteomyelitis. Right ankle hematoma with no effusion on Xray. Hematoma on outer aspect of right ankle likely infected and source of infection. Hemophilia Recs: Continue Ancef IV for MSSA bacteremia (stop date: 12/09/2017) Post hospital infusion orders in chart. Magan Rodriguez: Podiatry plans on no surgery. Follow cultures Follow clinically Discussed with patient. dw Patients informed her of podiatry plans, MSSA bacteremia and osteomyelitis and plan to treat with IV antibiotics for 6 weeks. Patients reports she can do infusions but pump preferred if approved by insurance. Time spent in DC planning in excess of 40 mins. magan DYER MD, Patient and family. Will sign off please call back if any change in clinical condition or questions. Briseyda Alexander MD Oct 30, 2017 12:23
[2017-10-30 12:30] LABS: INTERNATIONAL NORMALIZED RATIO 1.1 RATIO; PROTHROMBIN TIME - PATIENT 11.4 SEC (9.8-11.6)
--- NOTE | 2017-10-30 13:36 | HHI.FF ---
cc: Marya Ross MD Infusion Therapy Location of Infusion Therapy: Home [facility] Care IV Infusion Order Patient Information Appointment Date: Oct 30, 2017 Patient Weight 102.3 kg Diagnosis: Diagnosis MSSA bacteremia MSSA septic arthritis, osteomyelitis. Coded Allergies: Sulfa (Sulfonamide Antibiotics) (Verified Allergy, Severe, RASH, 10/20/17) Administer Medication Cefazolin 2 grams IV q 8 hours Start Treatment: Oct 30, 2017 Stop Treatment: Dec 09, 2017 Additional Information Venous access: PICC Line Additional Instructions [x] Peripheral flush and dressing changes per protocol [x] Implanted port and central pipe line walker: * Implanted port: 10 ml Normal Saline followed by 5 ml Heparin 100 units/ml Heparin flush after each use and monthly to maintain. [] May leave port accessed during therapy. [] May leave peripheral site accessed for duration of therapy. [x] If patient has SOB or respiratory distress, check oxygen saturation. If less than 90% or clinical signs of respiratory distress, administer oxygen at 2 L/min. via nasal cannula and notify physician. [x] Anaphylaxis/Reaction orders: * Stop infusion. * Keep IV line open with saline flush. * Notify physician. * Monitor vital signs every 15 minutes until symptoms resolve. * Check Oxygen saturation; Oxygen at 2 L/min. via nasal cannula if less than 90% or clinical signs of respiratory distress. * Administer diphenhydramine (Benadryl) 25 mg IV STAT, (unless patient has received as pre-med). May repeat once, if necessary. * Solu-Cortef 250 mg IVP over 30-60 seconds, use 100 mg vials for each dissolution. * Epinephrine (1mg/1 ml) 0.3 mg subcutaneously or IVP now with any signs of respiratory distress. * Check with physician for new additional pre-med orders if patient is re- challenged or re-treated. [x] May remove PICC line when treatment complete, after confirming with Physician. [x] If the patient is admitted to the hospital, the ED, or transferred via [facility] , complete transfer form including medication reconciliation order sheet. Laboratory Tests Weekly Labs: CBC w/diff, Creatinine, CRP, LFT's (Hepatic function test) Additional Information Please draw weekly labs, fax to numbers below. Please call with abnormal labs or change in clinical condition or problems to: Dr.Reba Ross or or covering ID Physician Follow up appt: Patient to schedule follow up appt with Dr.Reba Ross within 2 weeks post discharge. Follow up with PCP Follow up with other MDs as planned. Counseling: Counseled about medication side effects Counseled about PICC line care and hand hygiene. Briseyda Alexander MD Oct 30, 2017 13:36
[2017-10-30] MEDS ORDERED: EPIN1INJ21 IV PUSH (13:40)
[2017-10-30] MEDS ORDERED: CEFA2SOL IV (13:40)
[2017-10-30] MEDS ORDERED: SOLU250I IV PUSH (13:40)
[2017-10-30] MEDS ORDERED: EPIN1INJ21 SQ (13:40)
--- NOTE | 2017-10-30 14:27 | HHI.DS ---
Discharge Summary Admission Date Oct 23, 2017 at 19:26 Discharge Date: Oct 30, 2017 Admitting Diagnosis Right ankle swelling and redness r/o cellulitis versus septic joint (1) Right ankle swelling ICD Code: M25.471 - Effusion, right ankle Status: Acute (2) Staphylococcus aureus bacteremia ICD Code: R78.81 - Bacteremia (3) 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 (4) Leukocytosis ICD Code: D72.829 - Elevated white blood cell count, unspecified Status: Resolved (5) Prediabetes ICD Code: R73.03 - Prediabetes Procedures aspiration Brief History - From Admission 67-year-old male with a past medical history significant for factor IX deficiency, hypertension, hyperlipidemia and coronary artery disease presents to the emergency department for evaluation of a swollen right foot. The patient was recently discharged from [facility] where he was treated for similar symptoms. He reports that on he kicked the recliner with his right foot. His right foot and then proceeded to swell and he was given factor IX during his recent hospitalization. 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 The patient reports that the swelling worsened last night and became warm to the touch. He denies any fever/chills. No chest pain or shortness of breath. No abdominal pain. No nausea/vomiting/ diarrhea. No lateralizing signs/symptoms. No weakness/fatigue. CBC/BMP: 10/28/17 0413 10/28/17 0413 Significant Findings Laboratory Tests Test 10/28/17 04:13 10/30/17 12:08 Hematocrit 38.6 % (39.0-51.0) Mean Platelet Volume 6.9 FL (7.0-11.0) Neutrophils (%) (Auto) 75.5 % (16.0-70.0) Monocytes (%) (Auto) 8.4 % (0.0-8.0) Random Glucose 136 MG/DL (74-106) Activated Partial Thromboplast Time 37.1 SEC (24.3-30.1) Imaging Last Impressions Aspiration 10/27/17 0000 Signed Impressions: Service Date/Time: Friday, October 27, 2017 18:15 - CONCLUSION: Uncomplicated aspiration as above. Martínez Brady MD Ankle MRI 10/26/17 0000 Signed Impressions: Service Date/Time: October 18:40 - CONCLUSION: Severe arthropathy of the ankle and subtalar joints with associated subchondral marrow edema and erosive changes. These findings are nonspecific, with infectious and inflammatory arthropathy both in the differential. Joint fluid aspiration may be helpful in ascertaining the correct diagnosis. If the ankle or subtalar joints are fairly infected, than the bony signal changes would be of concern for associated osteomyelitis. Jose Bernal MD Soft Tissue Ultrasound 10/24/17 0000 Signed Impressions: Service Date/Time: Tuesday, October 24, 2017 11:23 - CONCLUSION: 1.6 cm cystic area in the superficial soft tissues of the lateral foot may represent hematoma or cyst. Aubrey Philippe MD Ankle X-Ray 10/24/17 0000 Signed Impressions: Service Date/Time: Tuesday, October 24, 2017 16:12 - CONCLUSION: 1. 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 2. No evidence of fracture. Aubrey Philippe MD PE at Discharge AAOx3 nad EOMI Clear lungs BL RRR, no MRG abdomen is soft, nt, nd Swollen and erythematous on the lateral right foot/ankle that is mildly warm to touch. some range of motion noted Pt update on day of discharge Pt feels well. No concerns. Pain controlled. ready to go home Hospital Course This is a 67-year-old male with medical history significant for factor IX deficiency, hypertension, hyperlipidemia, and coronary artery disease. He presented to the ER for evaluation of a right swollen foot after sustaining a trauma. Hemophilia B, factor IX deficiency -Hematology following. Patient status post 2 doses of BeneFIX Infected hematoma, sandra-arthrosis right ankle -See MRI above, "no definitive fracture advanced chronic arthropathy at the ankle joint and subtalar joint, probable remote injury to the talofibular ligaments, positive ankle joint effusion and tenosynovitis surrounds the flexor tendons at the medial posterior foot." -Ultrasound shows 1.6 cm cystic area in the superficial soft tissues of lateral foot -Podiatry evaluated the pt and discussed w IR -The patient is status post ultrasound-guided aspiration of the right ankle, cultures growing staph aureus, no fungal elements seen as of yet Coronary artery disease/hypertension/hyperlipidemia -Continue home medications which include amlodipine Prediabetic -A1c 6.2, dietitian has been consulted - Recommend metformin on discharge, he can follow this up with his primary doctor Staph aureus bacteremia -Blood cultures on 10/24 growing staph aureus. Repeat blood cultures on 10/26 showed no growth to date -Patient is being followed by infectious disease, recommendation is IV Ancef ( vancomycin DC'd on 10/26) x 6 weeks. f/u w PCP and ID as an outpatient. Pt Condition on Discharge: Stable Discharge Disposition: Disch w/ Home Health Serv Discharge Time: > 30 minutes Discharge Instructions DIET: Follow Instructions for: Heart Healthy Diet Activities you can perform: See Additionl Instruction Other Activity Instructions: per podiatry recs Follow up Referrals: Appointment for Follow Up - 2 Weeks @ [facility] with MD Dr.Reba Cody Barnhart PCP Follow-up New Medications: Cefazolin Inj (Cefazolin Inj) 2 Gm/50 Ml Bagp 2 GM IV Q8H for MSSA osteomyelitis bacteremia for 42 Days, BAG 0 Refills Epinephrine Inj (Epinephrine Inj) 1 Mg/Ml (1 Ml) Inj 0.3 MG IV PUSH ONCE PRN for ALLERGIC REACTION, #1 VIAL Epinephrine Inj (Epinephrine Inj) 1 Mg/Ml (1 Ml) Inj 0.3 MG SQ ONCE PRN for ALLERGIC REACTION, #1 VIAL Give with any signs of respiratory distress. Hydrocortisone Inj (Solu-Cortef Inj) 250 Mg/2 Ml Inj 250 MG IV PUSH ONCE PRN for ALLERGIC REACTION, #1 VIAL 0 Refills Give over 30-60 seconds. Continued Medications: Amlodipine (Norvasc) 5 Mg Tab 5 MG PO DAILY for Blood Pressure Management, #30 TAB Atorvastatin (Atorvastatin) 40 Mg Tab 40 MG PO DAILY for Cholesterol Management, #30 TAB Hydrocodone/Acetaminophen (Hydrocodone-Acetamin 5-325 mg) 5 Mg-325 Mg Tablet 1 TAB PO Q4H PRN for PAIN SCALE 3 TO 5, #10 TAB Kristine Hunt MD Oct 30, 2017 14:27
--- NOTE | 2017-10-30 14:28 | HHI.FF ---
Face to Face Verification Diagnosis: (1) MSSA (methicillin susceptible Staphylococcus aureus) infection Home Health Nursing Order: Nursing assessment with vital signs IV medication administration I have seen patient Robles Henson on 10/30/17. My clinical findings support the need for the requested home health care services because: Pt receiving IV ancef Infection w/ risk of complications Injectable med education/admin I certify that my clinical findings support that this patient is homebound because: Pt requires IV ancef Unsteady gait/balance Kristine Hunt MD Oct 30, 2017 14:28
[2017-10-30] MEDS ORDERED: SODIUM CHLORIDE 0.9% FLUSH 10 ML FLUSH IV FLUSH PRN (17:30)
[2017-10-31] MEDS ORDERED: SODIUM CHLORIDE 0.9% FLUSH 10 ML FLUSH IV FLUSH SCH (09:00)
== END 2017-10-30 20:39 | disposition home health service (06) | DRG 871 ==
LOC: NEPE 17:23 → NEDA 19:26 → NEPHCDU 20:41 → HCIN 10-25 00:42
PROVIDERS: ADMIT Hospitalist; ATTEND Hospitalist
PROC: 0S9F3ZX Drainage of Right Ankle Joint, Percutaneous Approach, Diagnostic (ICD-10-PCS; principal; 2017-10-27)
PROC: 05HY33Z Insertion of Infusion Device into Upper Vein, Percutaneous Approach (ICD-10-PCS; 2017-10-30)
DX: A41.01 Sepsis due to Methicillin susceptible Staphylococcus aureus (principal); D67 Hereditary factor IX deficiency; L03.115 Cellulitis of right lower limb; M25.071 Hemarthrosis, right ankle; I25.10 Atherosclerotic heart disease of native coronary artery without angina pectoris; I10 Essential (primary) hypertension; E78.5 Hyperlipidemia, unspecified; M25.511 Pain in right shoulder; M19.90 Unspecified osteoarthritis, unspecified site; M25.471 Effusion, right ankle; R73.9 Hyperglycemia, unspecified; R73.03 Prediabetes; M65.9 Synovitis and tenosynovitis, unspecified; Z88.2 Allergy status to sulfonamides; S93.401A Sprain of unspecified ligament of right ankle, initial encounter; R07.9 Chest pain, unspecified; M25.472 Effusion, left ankle; F41.9 Anxiety disorder, unspecified; Z79.891 Long term (current) use of opiate analgesic
CPT/HCPCS: 20604; 71045; 73610; 73721; 73723; 76937; 76999; 77002; 80048; 80053; 80202; 82550; 82565; 83036; 83605; 83690; 83735; 83880; 84484; 85025; 85250; 85610; 85730; 86140; 86403; 87040; 87070; 87102; 87147; 87186; 87205; 87206; 93005; 96374; 96375; 96376; A9579; E0113; G0378; G8987-GP; G8988-GP; J0690; J1170; J2270; J2543; J3370; J7030; J7040; J7050; J7195; J7509